=== PATIENT | male | born 1940 | race Caucasian/White ===

== ENCOUNTER → 2016-04-21 | Outpatient (CLI) | payer OTHER ==
[~2016-04-21] MED LIST: ACET-1256 PO; CLR10 PO; CYAN100020; IBUP-1050 PO; MENT1GEL; MENT4GEL; PHEN10TA31; ZNTT/150 PO
== END | disposition home or self-care (01) ==
LOC: C.LABSPEC 17:34
PROVIDERS: ATTEND Urology
DX: Z85.51 Personal history of malignant neoplasm of bladder (principal); Z12.5 Encounter for screening for malignant neoplasm of prostate

== ENCOUNTER → 2016-05-25 | Outpatient (CLI) | payer OTHER ==
[~2016-05-25] MED LIST changes: -ACET-1256 PO; -CYAN100020
--- NOTE | 2016-05-25 15:25 | DIAGNOSTIC IMAGING REPORT ---
LEFT FOOT MIN 3 VIEWS ROUTINE CLINICAL HISTORY: LEFT FOOT PAIN pain COMPARISON: None. DISCUSSION: Considerable degenerative change throughout all major joint. Includes the interphalangeal, metatarsophalangeal, as well as intercarpal region. Moderate reactive osteophytic change throughout. No evidence for fracture or dislocation. There is small heel spur. There is no evidence for soft tissue swelling. IMPRESSION: Significant degenerative change. Heel spur. No acute bony abnormality. Electronically signed by: Luis Morales M.D. 05/25/2016 3:24 PM Dictated Date/Time: 05/25/2016 3:23 PM
== END | disposition home or self-care (01) ==
LOC: C.RADBC 15:03
PROVIDERS: ATTEND Physician Assistant Medical
DX: M79.672 Pain in left foot (principal); M77.32 Calcaneal spur, left foot

== ENCOUNTER → 2016-06-23 | Outpatient (CLI) | payer OTHER ==
[~2016-06-23] MED LIST changes: +ALBU18002 INH
--- NOTE | 2016-06-23 12:24 | DIAGNOSTIC IMAGING REPORT ---
CHEST 2 VIEWS ROUTINE CLINICAL HISTORY: COUGH COMPARISON STUDY: 11/20/2008 FINDINGS: The cardiac and mediastinal contours are normal. There is no evidence of focal pulmonary consolidation. There is no evidence of failure. No pleural effusions are visualized.[ IMPRESSION: No active disease in the chest. Electronically signed by: Ga Salcido M.D. 06/23/2016 12:22 PM Dictated Date/Time: 06/23/2016 12:21 PM
== END | disposition home or self-care (01) ==
LOC: C.RADPV 11:50
PROVIDERS: ATTEND Nurse Practitioner Family
DX: R05 Cough (principal)

== ENCOUNTER 2020-04-22 16:08 | Inpatient (IN) ==
[2020-04-22] MEDS ORDERED: SODIUM CHLORIDE 0.9% 500 ML IV SCH (17:00)
[2020-04-22 17:40] LABS: Eosinophils # (auto) 0.02 K/uL (0-0.5); Eosinophils % (auto) 0.3 %; Hematocrit (blood only) 23.5 % (42-52); Hemoglobin 7.4 g/dL (14.0-18.0); Immature Granulocytes # (auto) 0.07 K/uL (0.00-0.02); Immature Granulocytes % (auto) 0.9 %; Lymphocytes # (auto) 1.38 K/uL (1.2-3.4); Lymphocytes % (auto) 17.7 %; Mean Corpuscular Hemoglobin 33.3 pg (25-34); Mean Corpuscular Hgb Conc 31.5 g/dL (32-36); Mean Corpuscular Volume 105.9 fL (80-100); Monocytes # (auto) 0.32 K/uL (0.11-0.59); Monocytes % (auto) 4.1 %; Platelet Count 264 K/uL (130-400); RDW Coefficient of Variation 15.5 % (11.5-14.5); RDW Standard Deviation 59.7 fL (36.4-46.3); Red Blood Count 2.22 M/uL (4.7-6.1); Reticulocyte % 2.3 % (0.5-2.0); Reticulocytes # 0.05 10^6/uL (0.02-0.10); White Blood Count 7.79 K/uL (4.8-10.8)
--- NOTE | 2020-04-22 18:02 | XRay Report ---
XR chest 1V portable CLINICAL HISTORY: Atypical chest pain COMPARISON STUDY: 04/17/2020 FINDINGS: The cardiac and mediastinal contours are normal. There is no evidence of focal pulmonary co nsolidation. There is no evidence of failure. No pleural effusions are visualized.[Arthritic changes are present within both shoulders with conventional radiographic findings suggesting chronic rotator cuff tear/degeneration IMPRESSION: No active disease in the chest. ACT 112: Negative or not required by law. Electronically signed by: Ga Salcido M.D. 04/22/2020 6:01 PM
[2020-04-22 18:07] LABS: Alanine Aminotransferase 19 U/L (12-78); Albumin Level 2.8 gm/dl (3.4-5.0); Aspartate Aminotransferase 15 U/L (15-37); BUN Creatinine Ratio 24.3 (10-20); Blood Urea Nitrogen 27 mg/dl (7-18); Calcium 8.6 mg/dl (8.5-10.1); Carbon Dioxide 25 mmol/L (21-32); Chloride 106 mmol/L (98-107); Creatinine Clr Calc Pharmacy 52.9 ml/min; Est GFR (African American) 72.6; Est GFR (Non-African American) 62.6; Glucose 98 mg/dl (70-99); Lipase 132 U/L (73-393); Potassium 3.6 mmol/L (3.5-5.1); Sodium 140 mmol/L (136-145)
[2020-04-22 18:10] LABS: RBC Morphology Unremarkable
[2020-04-22 18:11] LABS: Albumin Globulin Ratio 0.6 (0.9-2); Alkaline Phosphatase 58 U/L (45-117); Bilirubin,Total 0.5 mg/dl (0.2-1); Globulin 4.6 gm/dl (2.5-4.0); Total Protein 7.4 gm/dl (6.4-8.2); Troponin I < 0.015 ng/ml (0-0.045)
--- NOTE | 2020-04-22 18:14 | Emergency Department Note ---
Impression & Plan Near syncope, Anemia, Elevated ferritin ED Provider Note NAME: DILIP MUELLER AGE: 79 SEX: M ARRIVES VIA: Walk-In INFORMANT: Patient, ED PROVIDER(S): Fabiano Mcduffie MD CHIEF COMPLAINT: Anemia, near syncope. PLAN: Disposition: Admit. MEDICAL DECISION MAKING: The patient is a pleasant 79-year-old gentleman with a past medical history of hypertension, acid reflux, history of macrocytic anemia of unclear etiology, osteopenia/arthritis who presents emergency department from PCPs office for evaluation of worsening anemia where he was noted to have a H/H of 8.2/27 on 04/17 which declined to 7.7/25.5 today in the setting of having previous baseline of on prior values in 2019 though no recent values are immediately available. The patient was referred in the setting of having symptoms of frequent dizziness/near syncope when standing. Patient denies any bloody or black stools. He denies any signs or symptoms of bleeding otherwise. The patient did have outpatient iron studies which demonstrated low iron and TIBC, with an elevated ferritin of 1400. Patient's MCV again is macrocytic. The patient does report having a recent sensation that he is needing to urinate frequently but denies burning or sensation of unable to void or urinary retention. Of note, review of the patient's records does show he follows with hematology and had been previously evaluated for his anemia with a suspicion of possible myelodysplastic syndrome though blood work was negative, however MDS was still considered a possibility but bone marrow biopsy was deferred given no symptoms and only mild anemia. On arrival the patient is fatigued appearing but no acute distress, afebrile stable vital signs. Abdomen is benign. Rectal exam is unremarkable with scant brown stool without gross blood or melena and is Hemoccult negative. WBC and platelets within normal limits. H/H 7.4/23.5 slightly decreased from this morning of 7.7/25.5 but in the setting of repeat phlebotomy. MVC is again macrocytic at 105. Chemistry without metabolic acidosis. LFTs unremarkable. LDH within normal limits. Troponin negative/undetectable. Lipase within normal limits. ESR and CRP elevated at 31 and 15, respectively. Reticulocyte 2.3% only mildly elevated, which given worsening macrocytic anemia could suggest etiology of MDS. COVID-19 RNA, NAAT negative. CT of the abdomen and pelvis negative for acute process. Given the patient's new anemia of unclear chronicity in the setting of near syncopal symptoms reasonable to admit the patient for further evaluation and possible transfusion. Patient agrees with this plan. Will defer decision for transfusion to admitting team as patient is stable at this time. Dr. Pantoja, [facility] hospitalist, to will evaluate the patient for admission. Triage Nursing notes reviewed and agree them. Prior medical records reviewed Vital Signs: reviewed and remarkable for no significant abnormalities Differential diagnosis: Infection, dehydration, metabolic abnormality, hypo/hyperglycemia, electrolyte disturbance, anemia, hypoxia, cardiac sources, intracerebral event, toxicologic, neurologic, as well as other pathologies. ER treatment provided: See below. Diagnostics interpreted by me: ECG: Sinus rhythm with PACs, 86 bpm, no overt ST elevation depression, QTC 452, QRS 94. Cardiac Monitoring: An order for continuous cardiac monitoring was placed and demonstrated Sinus rhythm with PACs, 86 bpm. Laboratory studies: See below Imaging studies: XR chest 1V portable CLINICAL HISTORY: Atypical chest pain COMPARISON STUDY: 04/17/2020 FINDINGS: The cardiac and mediastinal contours are normal. There is no evidence of focal pulmonary consolidation. There is no evidence of failure. No pleural effusions are visualized.[Arthritic changes are present within both shoulders with conventional radiographic findings suggesting chronic rotator cuff tear/degeneration IMPRESSION: No active disease in the chest. ACT 112: Negative or not required by law. Electronically signed by: Ga Salcido M.D. -- CT abd pelvis IV con only CLINICAL HISTORY: Abdominal pain and near-syncope COMPARISON STUDY: None. TECHNIQUE: The patient was scanned in a dynamic helical fashion during intravenous administration of 92 cc of Optiray 320 A dose lowering technique was utilized adhering to the principles of ALARA. CT DOSE: 299.37 mGy.cm FINDINGS: Lower chest: There is pulmonary emphysema. There are dependent airspace opacities, likely atelectatic Liver: There are scattered tiny hepatic hypodensities which are too small to characterize but statistically represent cysts. Gallbladder: Unremarkable. Spleen: Normal in size and attenuation. Pancreas: Unremarkable. Adrenal glands: There is a 16mm left adrenal adenoma. Kidneys: There are multiple bilateral renal cysts, the largest of which is located on the right measuring 87 mm. No solid renal masses are visualized. There is mild fullness of the left renal collecting system. No ureteral or bladder calculi are visualized. Evaluation the distal ureters limited due to artifact from a total left hip arthroplasty. Bowel: There are no transition zones indicate bowel obstruction. The appendix appears normal. There is colonic diverticulosis. There is no acute diverticulitis Peritoneum: There is no intraperitoneal free air or abdominal ascites. There is a small right inguinal hernia containing a small not all of small bowel. This is nonobstructing Vasculature: The abdominal aorta is normal in course and caliber. Adenopathy: None. Pelvic viscera: The prostate is enlarged. Evaluation the pelvis is somewhat limited due to artifact from a total left hip arthroplasty Skeletal structures: There are postsurgical changes of a total left hip arthroplasty. Degenerative changes are present within the spine and right hip. No destructive lesions are evident IMPRESSION: 1. No evidence of bowel obstruction. No evidence of free air 2. Diverticulosis. No evidence of acute diverticulitis 3. Normal appendix 4. Small left adrenal adenoma 5. Large bilateral renal cysts. 6. Mild dilatation left renal collecting system. No ureteral or bladder calculi identified 7. Prostatomegaly ACT 112: Negative or not required by law. Electronically signed by: Ga Salcido M.D. 04/22/2020 6:45 PM Dictated: 04/22/20 183Transcribed: 04/22/20 184 HPI: The patient is a pleasant 79-year-old gentleman with a past medical history of hypertension, acid reflux, history of macrocytic anemia of unclear etiology, osteopenia/arthritis who presents emergency department from PCPs office for evaluation of worsening anemia where he was noted to have a H/H of 8.2/27 on 04/17 which declined to 7.7/25.5 today in the setting of having previous baseline of on prior values in 2019 though no recent values are immediately available. The patient was referred in the setting of having symptoms of frequent dizziness/near syncope when standing. Patient denies any bloody or black stools. He denies any signs or symptoms of bleeding otherwise. The pat ient did have outpatient iron studies which demonstrated low iron and TIBC, with an elevated ferritin of 1400. Patient's MCV again is macrocytic. The patient does report having a recent sensation that he is needing to urinate frequently but denies burning or sensation of unable to void or urinary retention. Of note, review of the patient's records does show he follows with hematology and had been previously evaluated for his anemia with a suspicion of possible myelodysplastic syndrome though blood work was negative, however MDS was still considered a possibility but bone marrow biopsy was deferred given no symptoms and only mild anemia. ROS: See above HPI for pertinent positives & negatives. A total of 10 systems reviewed and were otherwise negative. PAST MEDICAL HISTORY:See Below PAST SURGICAL HISTORY:See Below FAMILY HISTORY:See Below SOCIAL HISTORY:See Below HOME MEDICATIONS:See Below ALLERGIES:See Below VITALS:See Below PHYSICAL EXAMINATION: GENERAL: Awake, alert, fatigued-appearing, in no distress HENT: Normocephalic, atraumatic. Oropharynx with dry mucous membranes and otherwise unremarkable. EYES: Normal conjunctiva. Sclera non-icteric. NECK: Supple. No nuchal rigidity. FROM. No JVD. RESPIRATORY: Clear to auscultation. CARDIAC: Regular rate, normal rhythm. Extremities warm and well perfused. Pulses equal. ABDOMEN: Soft, non-distended. No tenderness to palpation. No rebound or guarding. No masses. RECTAL: Scant brown stool without gross blood, melena. Hemoccult negative. MUSCULOSKELETAL: Chest examination reveals no tenderness. The back is symmetrical on inspection without obvious abnormality. There is no CVA tenderness to palpation. No joint edema. LOWER EXTREMITIES: Calves are equal size bilaterally and non-tender. No edema. No discoloration. NEURO: Normal sensorium. No sensory or motor deficits noted. SKIN: Mild pallor. No rash or jaundice noted. Fabiano Mcduffie MD Past Med/Surg History Medical History Acid reflux disease Allergic rhinitis Hypertension Pulmonary nodule Surgical History S/P bladder tumor excision with fulguration 8 "cured" surgically per patient. 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 Medical Writer Required: No Beliefs That Will Affect Care: None marital status: Current Living Situation: Spouse current occupational status: retired Other Information That Helps Us Care for You: No Feels Safe at Home: Yes Safety Concerns: Feels Safe At This Time Childhood Exposure to Second-Hand Smoke: No caffeine: Yes Dental Care, Regularly: No Physical Activity Frequency: Daily Seatbelt Use: always Sunscreen Use: Yes Assistive Devices: Denture - Upper, Denture - Lower, Glasses and Hearing Aid - Bilateral Allergies Allergies Allergy/AdvReac Type Severity Reaction Status Date / Time No Known Allergies Allergy Verified 04/22/20 13:57 Home Meds Home Medications Medication Instructions Recorded Confirmed famotidine 10 mg tablet 10 mg PO DAILY PRN 10/08/19 04/22/20 amlodipine 5 mg PO DAILY 04/22/20 04/22/20 fluticasone furoate-vilanterol 1 inh INHALATION DAILY PRN 04/22/20 04/22/20 [Breo Ellipta] ibuprofen 200 mg tablet 200 mg PO DIRECTED PRN tab 04/22/20 04/22/20 Results & Data (ED) Vital Signs Vital Signs - 24 hr 04/22/20 16:11 04/22/20 16:21 04/22/20 16:23 Temperature 37 C Temperature Source Oral Pulse Rate 93 H 83 90 Pulse Rate from SpO2 Sensor 88 Respiratory Rate 18 20 16 Blood Pressure 173/64 H 140/70 Blood Pressure Mean 100 93 Pulse Oximetry 99 99 95 Oxygen Delivery Method Room Air Room Air Sepsis Recent Fever Within 48 Hours No Sepsis New/Unexplained Change in Mental Status No Sepsis Action Taken by Nursing No Action Required 04/22/20 16:25 04/22/20 16:30 04/22/20 16:31 Temperature Temperature Source Pulse Rate 86 84 83 Pulse Rate from SpO2 Sensor 86 84 81 Respiratory Rate 19 25 H 19 Blood Pressure 134/70 Blood Pressure Mean 91 Pulse Oximetry 99 100 98 Oxygen Delivery Method Sepsis Recent Fever Within 48 Hours Sepsis New/Unexplained Change in Mental Status Sepsis Action Taken by Nursing 04/22/20 17:00 04/22/20 17:01 04/22/20 17:11 Temperature Temperature Source Pulse Rate 82 84 84 Pulse Rate from SpO2 Sensor 82 83 83 Respiratory Rate 17 20 17 Blood Pressure 128/65 125/64 Blood Pressure Mean 86 84 Pulse Oximetry 97 98 96 Oxygen Delivery Method Sepsis Recent Fever Within 48 Hours Sepsis New/Unexplained Change in Mental Status Sepsis Action Taken by Nursing 04/22/20 19:00 04/22/20 19:01 04/22/20 19:30 Temperature Temperature Source Pulse Rate 82 83 87 Pulse Rate from SpO2 Sensor 81 82 Respiratory Rate 14 16 15 Blood Pressure 137/69 159/76 H Blood Pressure Mean 91 103 Pulse Oximetry 97 97 Oxygen Delivery Method Room Air Room Air Sepsis Recent Fever Within 48 Hours Sepsis New/Unexplained Change in Mental Status Sepsis Action Taken by Nursing 04/22/20 20:00 04/22/20 21:00 Temperature Temperature Source Pulse Rate 88 79 Pulse Rate from SpO2 Sensor Respiratory Rate 19 20 Blood Pressure 143/72 H Blood Pressure Mean 95 Pulse Oximetry 98 98 Oxygen Delivery Method Room Air Room Air Sepsis Recent Fever Within 48 Hours Sepsis New/Unexplained Change in Mental Status Sepsis Action Taken by Nursing Laboratory Data Attestation: I reviewed the patient's lab results. Result diagrams: 04/22/20 17:30 04/22/20 17:03 Lab Results 04/22/20 04/22/20 04/22/20 Range/Units 17:03 17:03 17:03 WBC (4.8-10.8) K/uL RBC (4.7-6.1) M/uL Hgb (14.0-18.0) g/dL Hct (42-52) % MCV (80-100) fL MCH (25-34) pg MCHC (32-36) g/dL RDW Std Deviation (36.4-46.3) fL RDW Coeff of [place] (11.5-14.5) % Plt Count (130-400) K/uL MPV (7.4-10.4) fL Immature Gran % (Auto) % Neut % (Auto) % Lymph % (Auto) % Bryan % (Auto) % Eos % (Auto) % Baso % (Auto) % Reticulocyte % (Auto) (0.5-2.0) % Neut # (Auto) (1.4-6.5) K/uL Lymph # (Auto) (1.2-3.4) K/uL Bryan # (Auto) (0.11-0.59) K/uL Eos # (Auto) (0-0.5) K/uL Baso # (Auto) (0-0.2) K/uL Reticulocyte # (0.02-0.10) 10^6/uL Immature Gran # (Auto) (0.00-0.02) K/uL RBC Morphology ESR 31 H (0-14) mm/hr Sodium (136-145) mmol/L Potassium (3.5-5.1) mmol/L Chloride (98-107) mmol/L Carbon Dioxide (21-32) mmol/L Anion Gap (3-11) BUN (7-18) mg/dl Creatinine (0.6-1.4) mg/dl Est Cr Clr Drug Dosing ml/min Est GFR ( Amer) Est GFR (Non-Af Amer) BUN/Creatinine Ratio (10-20) Glucose (70-99) mg/dl Calcium (8.5-10.1) mg/dl Total Bilirubin (0.2-1) mg/dl AST (15-37) U/L ALT (12-78) U/L Alkaline Phosphatase (45-117) U/L Lactate Dehydrogenase 173 (87-241) U/L Troponin I (0-0.045) ng/ml C-Reactive Protein (0-0.29) mg/dl Total Protein (6.4-8.2) gm/dl Albumin (3.4-5.0) gm/dl Globulin (2.5-4.0) gm/dl Albumin/Globulin Ratio (0.9-2) Lipase (73-393) U/L Urine Color Urine Appearance (Clear) Urine pH (4.5-7.5) Ur Specific [place] (1.000-1.030) Urine Protein (Negative) Urine Glucose (UA) (Negative) Urine Ketones (Negative) Urine Blood (Negative) Urine Nitrite (Negative) Urine Bilirubin (Negative) Urine Urobilinogen (Negative) Ur Leukocyte Esterase (Negative) COVID-19 Eval Order SARS-CoV-2, RNA, NAAT (NEGATIVE) Blood Type O Positive Antibody Screen NEGATIVE Crossmatch See Detail 04/22/20 04/22/20 04/22/20 Range/Units 17:03 17:30 17:30 WBC 7.79 (4.8-10.8) K/uL RBC 2.22 L (4.7-6.1) M/uL Hgb 7.4 L (14.0-18.0) g/dL Hct 23.5 L (42-52) % MCV 105.9 H (80-100) fL MCH 33.3 (25-34) pg MCHC 31.5 L (32-36) g/dL RDW Std Deviation 59.7 H (36.4-46.3) fL RDW Coeff of [place] 15.5 H (11.5-14.5) % Plt Count 264 (130-400) K/uL MPV 9.0 (7.4-10.4) fL Immature Gran % (Auto) 0.9 % Neut % (Auto) 77.0 % Lymph % (Auto) 17.7 % Bryan % (Auto) 4.1 % Eos % (Auto) 0.3 % Baso % (Auto) 0.0 % Reticulocyte % (Auto) 2.3 H (0.5-2.0) % Neut # (Auto) 6.00 (1.4-6.5) K/uL Lymph # (Auto) 1.38 (1.2-3.4) K/uL Bryan # (Auto) 0.32 (0.11-0.59) K/uL Eos # (Auto) 0.02 (0-0.5) K/uL Baso # (Auto) 0.00 (0-0.2) K/uL Reticulocyte # 0.05 (0.02-0.10) 10^6/uL Immature Gran # (Auto) 0.07 H (0.00-0.02) K/uL RBC Morphology Unremarkable ESR (0-14) mm/hr Sodium 140 (136-145) mmol/L Potassium 3.6 (3.5-5.1) mmol/L Chloride 106 (98-107) mmol/L Carbon Dioxide 25 (21-32) mmol/L Anion Gap 9.0 (3-11) BUN 27 H (7-18) mg/dl Creatinine 1.10 (0.6-1.4) mg/dl Est Cr Clr Drug Dosing 52.9 ml/min Est GFR ( Amer) 72.6 Est GFR (Non-Af Amer) 62.6 BUN/Creatinine Ratio 24.3 H (10-20) Glucose 98 (70-99) mg/dl Calcium 8.6 (8.5-10.1) mg/dl Total Bilirubin 0.5 (0.2-1) mg/dl AST 15 (15-37) U/L ALT 19 (12-78) U/L Alkaline Phosphatase 58 (45-117) U/L Lactate Dehydrogenase (87-241) U/L Troponin I < 0.015 (0-0.045) ng/ml C-Reactive Protein 15.70 H (0-0.29) mg/dl Total Protein 7.4 (6.4-8.2) gm/dl Albumin 2.8 L (3.4-5.0) gm/dl Globulin 4.6 H (2.5-4.0) gm/dl Albumin/Globulin Ratio 0.6 L (0.9-2) Lipase 132 (73-393) U/L Urine Color Urine Appearance (Clear) Urine pH (4.5-7.5) Ur Specific [place] (1.000-1.030) Urine Protein (Negative) Urine Glucose (UA) (Negative) Urine Ketones (Negative) Urine Blood (Negative) Urine Nitrite (Negative) Urine Bilirubin (Negative) Urine Urobilinogen (Negative) Ur Leukocyte Esterase (Negative) COVID-19 Eval Order Covid19 IDNow [email or web address] SARS-CoV-2, RNA, NAAT (NEGATIVE) Blood Type Antibody Screen Crossmatch 04/22/20 04/22/20 Range/Units 17:30 19:28 WBC (4.8-10.8) K/uL RBC (4.7-6.1) M/uL Hgb (14.0-18.0) g/dL Hct (42-52) % MCV (80-100) fL MCH (25-34) pg MCHC (32-36) g/dL RDW Std Deviation (36.4-46.3) fL RDW Coeff of [place] (11.5-14.5) % Plt Count (130-400) K/uL MPV (7.4-10.4) fL Immature Gran % (Auto) % Neut % (Auto) % Lymph % (Auto) % Bryan % (Auto) % Eos % (Auto) % Baso % (Auto) % Reticulocyte % (Auto) (0.5-2.0) % Neut # (Auto) (1.4-6.5) K/uL Lymph # (Auto) (1.2-3.4) K/uL Bryan # (Auto) (0.11-0.59) K/uL Eos # (Auto) (0-0.5) K/uL Baso # (Auto) (0-0.2) K/uL Reticulocyte # (0.02-0.10) 10^6/uL Immature Gran # (Auto) (0.00-0.02) K/uL RBC Morphology ESR (0-14) mm/hr Sodium (136-145) mmol/L Potassium (3.5-5.1) mmol/L Chloride (98-107) mmol/L Carbon Dioxide (21-32) mmol/L Anion Gap (3-11) BUN (7-18) mg/dl Creatinine (0.6-1.4) mg/dl Est Cr Clr Drug Dosing ml/min Est GFR ( Amer) Est GFR (Non-Af Amer) BUN/Creatinine Ratio (10-20) Glucose (70-99) mg/dl Calcium (8.5-10.1) mg/dl Total Bilirubin (0.2-1) mg/dl AST (15-37) U/L ALT (12-78) U/L Alkaline Phosphatase (45-117) U/L Lactate Dehydrogenase (87-241) U/L Troponin I (0-0.045) ng/ml C-Reactive Protein (0-0.29) mg/dl Total Protein (6.4-8.2) gm/dl Albumin (3.4-5.0) gm/dl Globulin (2.5-4.0) gm/dl Albumin/Globulin Ratio (0.9-2) Lipase (73-393) U/L Urine Color Yellow Urine Appearance Clear (Clear) Urine pH 5.5 (4.5-7.5) Ur Specific [place] 1.034 H (1.000-1.030) Urine Protein Negative (Negative) Urine Glucose (UA) Negative (Negative) Urine Ketones Trace H (Negative) Urine Blood Negative (Negative) Urine Nitrite Negative (Negative) Urine Bilirubin Negative (Negative) Urine Urobilinogen Negative (Negative) Ur Leukocyte Esterase Negative (Negative) COVID-19 Eval Order SARS-CoV-2, RNA, NAAT NEGATIVE (NEGATIVE) Blood Type Antibody Screen Crossmatch Administered Medications Discontinued Medications Sodium Chloride (Nss) 500 mls @ 999 mls/hr IV .Q31M [place] Stop: 04/22/20 17:30 Last Infusion: 04/22/20 18:19 Dose: 0 mls/hr Documented by: [id number] Admin: 04/22/20 17:19 Dose: 999 mls/hr Documented by: [id number] Ioversol (Ioversol 100ml) 92 ml IV ONCE ONE Stop: 04/22/20 18:34 Last Admin: 04/22/20 18:34 Dose: 92 ml Documented by: [id number] Discharge Plan Visit Data Chief Complaint: Illness Stated Complaint: dr sent for blood transfusion, lightheaded ED Provider: Fabiano Mcduffie Discharge Problem: Near syncope, Anemia, Elevated ferritin Patient Disposition: Admitted As Inpatient Discharge Instructions Interventions: ED Discharge Assessment Last Done: 04/22/20 21:56 Discharge Problem: Anemia Qualifiers: Anemia type: unspecified type Qualified Code(s): D64.9 - Anemia, unspecified
[2020-04-22] MEDS ORDERED: OPTIRAY 320 100ml IV ONE (18:33)
--- NOTE | 2020-04-22 18:46 | CT Scan Report ---
CT abd pelvis IV con only CLINICAL HISTORY: Abdominal pain and near-syncope COMPARISON STUDY: None. TECHNIQUE: The patient was scanned in a dynamic helical fashion during intravenous administration of 92 cc of Optiray 320 A dose lowering technique was utilized adhering to the principles of ALARA. CT DOSE: 299.37 mGy.cm FINDINGS: Lower chest: There is pulmonary emphysema. There are dependent airspace opacities, likely atelectatic Liver: There are scattered tiny hepatic hypodensities which are too small to characterize but statist ically represent cysts. Gallbladder: Unremarkable. Spleen: Normal in size and attenuation. Pancreas: Unremarkable. Adrenal glands: There is a 16mm left adrenal adenoma. Kidneys: There are multiple bilateral renal cysts, the largest of which is located on the right measu ring 87 mm. No solid renal masses are visualized. There is mild fullness of the left renal collecting system. No ureteral or bladder calculi are visualized. Evaluation the distal ureters limited due to artifact from a total left hip arthroplasty. Bowel: There are no transition zones indicate bowel obstruction. The appendix appears normal. There i s colonic diverticulosis. There is no acute diverticulitis Peritoneum: There is no intraperitoneal free air or abdominal ascites. There is a small right inguina l hernia containing a small not all of small bowel. This is nonobstructing Vasculature: The abdominal aorta is normal in course and caliber. Adenopathy: None. Pelvic viscera: The prostate is enlarged. Evaluation the pelvis is somewhat limited due to artifact f rom a total left hip arthroplasty Skeletal structures: There are postsurgical changes of a total left hip arthroplasty. Degenerative ch anges are present within the spine and right hip. No destructive lesions are evident IMPRESSION: 1. No evidence of bowel obstruction. No evidence of free air 2. Diverticulosis. No evidence of acute diverticulitis 3. Normal appendix 4. Small left adrenal adenoma 5. Large bilateral renal cysts. 6. Mild dilatation left renal collecting system. No ureteral or bladder calculi identified 7. Prostatomegaly ACT 112: Negative or not required by law. Electronically signed by: Ga Salcido M.D. 04/22/2020 6:45 PM
[2020-04-22 19:35] LABS: Appearance Urine Clear (Clear); Bilirubin Urine Negative (Negative); Blood Urine Negative (Negative); Color Urine Yellow; Glucose Urine UA Negative (Negative); Ketones Urine Trace (Negative); Leukocyte Esterase Urine Negative (Negative); Nitrite Urine Negative (Negative); Protein Urine Negative (Negative); Specific Gravity Urine 1.034 (1.000-1.030); Urobilinogen Urine Negative (Negative); pH Urine 5.5 (4.5-7.5)
--- NOTE | 2020-04-22 21:45 | History & Physical Report ---
Date of Service April 22, 2020 Assessment & Plan Admission and Anticipated Discharge Date Admission Date: 79 yo M w/ pMHx. of bladder cancer, hip replacement, biceps tear, OA and RA presents with symptomatic anemia unclear etiology. Chronically worsened symptomatic macrocytic anemia, with elevated RDW and ferritin > 1400 in the setting of NSAID use concern for gastric ulcers. Previous worked up by hematology w/ Dr. Houston. for dyscrasia although differential also includes B12 or folate deficiency, anemia of chronic disease, UA w/o blood, currently patient is stable CT a/p with findings of diverticulosis, mild dilation of the left renal collecting system CXR with no active disease - admit to med/surg - Hgb 7.7, will continue to monitor with AM labs - routine hematology consult w/ Dr. Houston - ordered LDH, TSH, b12, folate, SPEP - waiting peripheral smear, haptoglobin - 1U pRBC ordered - routine GI consult for potential GI source of blood loss - NPO at midnight for potential scope/s Acute weight loss, in the setting of prior bladder cancer, with smoking history and family history of cancer and no colon cancer screening in the past 30 years concerning for possible bladder, lung or colon cancer low albumin - GI consult as above, could consider outpatient scope for screening if not done in-house - continue to follow pulmonary nodule with imaging - ensure f/u with urology to monitor bladder cancer for recurrence potentially on an outpatient basis - continue evaluation of weight loss in the outpatient setting HTN - continue home Amlodipine Discharge issues given presyncope and weight loss - PT/OT eval and treat - case mgmt consulted for discharge planning DVT prophylaxis: SCD's given symptomatic anemia of unclear source will hold off on chemical prophylaxis at this time Code: DNR/DNI Diet: NPO at midnight COVID: negative 04/22 History of Present Illness Chief Complaint: presyncope Primary Care Provider: DO Bert Mederos Maximiliano is a 79-year-old man who has a past medical history of bladder cancer, arthritis, biceps tear, and left hip replacement. He is coming in for symptomatic anemia. He has been having spells where he is doing something and will feel weak and have to, "shake it off". He said that he will have to sit down or he is concerned that he will fall and has some associated shortness of breath. He was seen by his primary doctor one week prior and his hgb was 8.2 and when he saw him today it was 7.7 and he was sent to the ER for symptomatic an emia. He has not had any blood in his bowel movements. His last colonoscopy was over 30 years ago and polyps were removed and he had a complication where according to patient a "repair" was required. He has pink urine which has been chronic for him without any changes recently, edenilson blood, or clots. He was previously seen for macrocytic anemia and leukopenia by Hematology Oncology on 12/24/18. Not found to have plasma cell dyscrasia with SPEP at that time but a biopsy for diagnosis was deferred as he was not symptomatic. He has lost 10 lbs. over the last 1.5 months. He has not had any changes in his diet or exercise level. He eats eggs for breakfast, sandwiches for lunch and soups. He does not eat much red meat and doesn't use cast iron for cooking. He has a past history of bladder cancer. He smoked 20 pack years and quit 50 years ago. Family history is significant for stomach cancer, prostate cancer and breast and ovarian cancer. He has been taking ibuprofen 1 pill approx. every 10 hours for the last few days. He takes Famotidine as needed but has not taken it in the last few days. Social: lives at home with who has colon cancer and requires care, daughter Kimberly was with him and visits with parents daily, drinks beer socially, infrequently with none in the last week. Allergies Allergy/AdvReac Type Severity Reaction Status Date / Time No Known Allergies Allergy Verified 04/22/20 13:57 Home Medications Medication Instructions Recorded Confirmed Type famotidine 10 mg tablet 10 mg PO DAILY PRN 10/08/19 04/22/20 History amlodipine 5 mg PO DAILY 04/22/20 04/22/20 History fluticasone furoate-vilanterol 1 inh INHALATION DAILY PRN 04/22/20 04/22/20 History [Breo Ellipta] ibuprofen 200 mg tablet 200 mg PO DIRECTED PRN tab 04/22/20 04/22/20 History Past Med/Surg History Medical History Acid reflux disease Allergic rhinitis Hypertension Pulmonary nodule Surgical History S/P bladder tumor excision with fulguration 2008. 10-08-19 "cured" surgically per patient. S/P hip replacement S/P tooth extraction Family History Denies family history of Ovarian cancer Prostate cancer Myocardial infarction Breast cancer Colorectal cancer Social History Smoking Status: Former smoker Number of Years Since Quit: 40; Hx Alcohol Use: No Hx Substance Use: No Preferred Language: Pashto Communication Ability: Effective Visual Impairment: No Limitations Hearing Ability: Use of Hearing Aid Cone Picker Required: No Beliefs That Will Affect Care: None marital status: Current Living Situation: Spouse current occupational status: retired Other Information That Helps Us Care for You: No Feels Safe at Home: Yes Safety Concerns: Feels Safe At This Time Childhood Exposure to Second-Hand Smoke: No caffeine: Yes Dental Care, Regularly: No Physical Activity Frequency: Daily Seatbelt Use: always Sunscreen Use: Yes Assistive Devices: Denture - Upper, Denture - Lower, Glasses and Hearing Aid - Bilateral Review of Systems Review of Systems: Constitutional: denies fevers, chills admits generalized weakness, night sweats that happen when he takes Tylenol and Advil Head: denies trauma, LOC admits headaches confusion and chronic vision changes he relates to cataract Neuro: denies syncope, slurring of speech, numbness, tingling admits neck pain ENT: Denies vertigo admits stuffiness and sneezing Cardiac: admits chronic leg edema Pulm: admits cough with clear sputum production GI: denies diarrhea, constipation changes in bowel freq, color, blood : admits chronic pain with urination that is unchanged from prior Physical Exam Constitutional: WD/WN, vitals as above + thin Eyes: PERRL, conjunctivae normal, anicteric sclerae ENMT: external ear and nose normal, oropharynx normal Neck: normal visual inspection Respiratory: normal respiratory effort, lungs clear to auscultation Cardiovascular: RRR, no murmur, no edema Chest (Breasts): Additional Comments: - left lower chest pain on palpation Gastrointestinal (Abdomen): - soft, slightly tender to palpation of the right lower quadrant Musculoskeletal: no cyanosis or clubbing, extremities motor strength 5/5 1+ non pitting edema of the lower extremity bilaterally Skin: no rashes, warm and dry Neurologic: CN's II-XI intact bilaterally Speech / Cognition: normal speech Results & Data Results & Data ([facility]) Vital Signs (Past 12 Hours) Vital Signs Temp Pulse Resp BP Pulse Ox 04/22/20 21:00 79 20 98 04/22/20 20:00 88 19 143/72 H 98 04/22/20 19:30 87 15 159/76 H 04/22/20 19:01 83 16 97 04/22/20 19:00 82 14 137/69 97 04/22/20 17:11 84 17 125/64 96 04/22/20 17:01 84 20 98 04/22/20 17:00 82 17 128/65 97 04/22/20 16:31 83 19 98 04/22/20 16:30 84 25 H 134/70 100 04/22/20 16:25 86 19 99 04/22/20 16:23 90 16 140/70 95 04/22/20 16:21 83 20 99 04/22/20 16:11 37 C 93 H 18 173/64 H 99 CBC Results Results Complete Blood Count Results: RBC 2.67 M/uL (4.7-6.1) L 04/23/20 WBC 7.71 K/uL (4.8-10.8) 04/23/20 Hgb 8.7 g/dL (14.0-18.0) L 04/23/20 Hct 27.0 % (42-52) L 04/23/20 Plt Count 215 K/uL (130-400) 04/23/20 Chemistry (BMP) Results BMP Results: Sodium 138 mmol/L (136-145) 04/23/20 Potassium 3.6 mmol/L (3.5-5.1) 04/23/20 Chloride 106 mmol/L (98-107) 04/23/20 BUN 20 mg/dl (7-18) H 04/23/20 Creatinine 0.90 mg/dl (0.6-1.4) 04/23/20 Glucose 104 mg/dl (70-99) H 04/23/20 Code Status & VTE Plan VTE Prophylaxis Plan VTE Prophylaxis will be ordered: Yes Supervising Physician Co-Signing Physician Notes Attending addendum: I have physically seen this patient, have supervised the medical residents activities, and agree with the H&P unless as otherwise noted. Assessment and Plan: Symptomatic anemia- Hemoglobin 7.4 upon admission, was 8.2 on 04/17/2020, and 11.4 on 12/24/2018. NPO except medications We will transfuse 2 units PRBCs due to symptoms of near syncope Famotidine 20 mg IV every 12 hours NSS + KCl 20 mEq 100 mils per hour Would not resume ibuprofen post discharge unless okayed by gastroenterology H&H every 6 hours Consult gastroenterology Hypertension- Amlodipine with hold parameters Deconditioning- Will likely need PT/OT consults after hemoglobin is improved Remainder of orders and notations as noted Resident Activity Tracking Resident Involvement: Resident Care Provided Care Provided: Adult Hospital Medicine
[2020-04-22] MEDS ORDERED: SODIUM CHLORIDE 0.9% 250 ML IV PRN (22:39)
[2020-04-22] MEDS ORDERED: FAMOTIDINE 10 MG TABLET PO PRN (22:39)
[2020-04-22] MEDS ORDERED: FLUTICASONE/VILANTEROL 100/25MCG 14 PUFFS/INHALER INH PRN (22:39)
[2020-04-22] MEDS ORDERED: ACETAMINOPHEN 325 MG TAB PO PRN (22:39)
[2020-04-22] MEDS ORDERED: POLYETHYLENE (MIRALAX) 17 GM PACK PO PRN (22:39)
[2020-04-22] MEDS ORDERED: ALUMINUM/MAGNESIUM SUSP 30 ML UDC PO PRN (22:39)
[2020-04-23 06:03] LABS: Hemoglobin 8.7 g/dL (14.0-18.0); Mean Corpuscular Hemoglobin 32.6 pg (25-34); Mean Corpuscular Hgb Conc 32.2 g/dL (32-36); Mean Corpuscular Volume 101.1 fL (80-100); Mean Platelet Volume 8.7 fL (7.4-10.4); Platelet Count 215 K/uL (130-400); RDW Coefficient of Variation 16.5 % (11.5-14.5); RDW Standard Deviation 60.4 fL (36.4-46.3); Red Blood Count 2.67 M/uL (4.7-6.1); White Blood Count 7.71 K/uL (4.8-10.8)
[2020-04-23 06:29] LABS: Eosinophils # (auto) 0.01 K/uL (0-0.5); Eosinophils % (auto) 0.1 %; Immature Granulocytes # (auto) 0.07 K/uL (0.00-0.02); Immature Granulocytes % (auto) 0.9 %; Lymphocytes # (auto) 1.31 K/uL (1.2-3.4); Monocytes # (auto) 0.86 K/uL (0.11-0.59); Monocytes % (auto) 11.2 %; Neutrophils # (auto) 5.46 K/uL (1.4-6.5); Neutrophils % (auto) 70.8 %
[2020-04-23 06:32] LABS: BUN Creatinine Ratio 22.1 (10-20); Calcium 8.1 mg/dl (8.5-10.1); Creatinine Clr Calc Pharmacy 63.7 ml/min; Est GFR (African American) 92.5; Est GFR (Non-African American) 79.8; Potassium 3.6 mmol/L (3.5-5.1)
[2020-04-23 06:42] LABS: Thyroid Stimulating Hormone 0.928 uIu/ml (0.300-4.500)
[2020-04-23] MEDS ORDERED: SUCRALFATE 1 GM/10 ML UDC PO SCH (07:00)
--- NOTE | 2020-04-23 08:50 | Anesthesiology Consultation ---
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 Laura Sanchez MD Height/Weight Height: 5 ft 10 in Weight: 70 kg Allergies Allergy/AdvReac Type Severity Reaction Status Date / Time No Known Allergies Allergy Verified 04/22/20 13:57 Medications Home Medications Medication Instructions Recorded Confirmed Last Taken famotidine 10 mg tablet 10 mg PO DAILY PRN 10/08/19 04/22/20 Unknown amlodipine 5 mg PO DAILY 04/22/20 04/22/20 Unknown fluticasone furoate-vilanterol 1 inh INHALATION DAILY PRN 04/22/20 04/22/20 Unknown [Breo Ellipta] ibuprofen 200 mg tablet 200 mg PO DIRECTED PRN tab 04/22/20 04/22/20 Unknown Active Medications Generic Name Dose Route Start Last Admin Trade Name Freq PRN Reason Stop Dose Admin Acetaminophen 650 mg 04/22/20 22:39 04/23/20 03:52 Acetaminophen 325 Mg Tab PO 05/22/20 22:38 650 mg Q4H PRN Administration pain/fever NPO Date Last Intake of Fluids: 04/22/20 Time Last Intake of Fluids: 23:59 Date Last Intake of Solids: 04/22/20 Time Last Intake of Solids: 23:59 Past Medical History Medical History Acid reflux disease Allergic rhinitis Hypertension Pulmonary nodule Past Family History Family History Denies family history of Ovarian cancer Prostate cancer Myocardial infarction Breast cancer Colorectal cancer Past Surgical History Surgical History S/P bladder tumor excision with fulguration 2008. 8-- "cured" surgically per patient. S/P hip replacement S/P tooth extraction Social History Smoking Status: Former smoker Hx Alcohol Use: No Hx Substance Use: No Physical Exam Vital Signs Last Vital Signs Temp 98.2 F 04/23/20 08:06 Pulse 68 04/23/20 08:06 Resp 16 04/23/20 08:06 BP 131/67 04/23/20 08:06 Pulse Ox 98 04/23/20 08:06 Testing Laboratory Results 04/23/20 05:23 04/23/20 05:23 Urine Color Yellow 04/22/20 19:28 Urine Appearance Clear (Clear) 04/22/20 19:28 Urine pH 5.5 (4.5-7.5) 04/22/20 19:28 Ur Specific [place] 1.034 (1.000-1.030) H 04/22/20 19:28 Urine Protein Negative (Negative) 04/22/20 19:28 Urine Glucose (UA) Negative (Negative) 04/22/20 19:28 Urine Ketones Trace (Negative) H 04/22/20 19:28 Urine Nitrite Negative (Negative) 04/22/20 19:28 Ur Leukocyte Esterase Negative (Negative) 04/22/20 19:28 Blood Type O Positive 04/22/20 17:03 Antibody Screen NEGATIVE 04/22/20 17:03 Laboratory Tests 04/22/20 17:30 SARS-CoV-2, RNA, NAAT NEGATIVE Electrocardiogram Date: 04/22/20 Sinus rhythm with Premature atrial complexes, rate 86 bpm Otherwise normal ECG When compared with ECG of 11-JAN-2017 10:17, Premature atrial complexes are now Present Chest X-Ray Date: 04/22/20 Findings: + NAD
[2020-04-23] MEDS: MULTIVITAMIN TAB PO SCH (09:22)
[2020-04-23] MEDS: PANTOprazole 40 MG TAB PO SCH (09:22)
[2020-04-23] MEDS: amLODIPine BESYLATE 5 MG TAB PO SCH (09:22)
--- NOTE | 2020-04-23 10:05 | Gastrointestinal Consultation ---
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 1. NPO for now. 2. EGD with Dr. Sanchez today for further evaluation. 3. Continue Pantoprazole 40 mg daily. 4. Continue supportive care. 5. Additional recommendations will be made pending results of testing. Thank you for allowing us to participate in the care of this patient. If you hav e any questions or concerns, please do not hesitate to contact us. Supervising Physician Co-Signing Physician Notes I personally evaluated the patient and agree with the findings as documented by MATEO Stern Exam: abd: soft, nt, nd History of Present Illness Reason for Consultation: Symptomatic anemia Requesting Physician: Dr. Rasmussen Attending Physician: Thomas Gomez History of Present Illness Patient is a very pleasant 79 year-old male with a history of bladder cancer admitted with symptomatic anemia. He states he has been having increased weakness and occasional dizziness upon standing over the past several weeks. He denies any overt GIB symptoms but states he does have abdominal pain of multiple sites after eating intermittently. No nausea or vomiting, diarrhea, constipation or bloating. +weight loss. H&H from 12/22 was noted to be 11.4/34.3 but was noted to be 7.7/27.0 on arrival. Patient has had chronic macrocytosis and has followed with Dr. Houston of hematology in the past in this regard. Currently, he remains NPO in anticipation for EGD with Dr. Sanchez as concern for possible PUD in the setting of patient's routine use of NSAIDs for pain control. Allergies Allergy/AdvReac Type Severity Reaction Status Date / Time No Known Allergies Allergy Verified 04/22/20 13:57 Home Medications Medication Instructions Recorded Confirmed Type famotidine 10 mg tablet 10 mg PO DAILY PRN 10/08/19 04/22/20 History amlodipine 5 mg PO DAILY 04/22/20 04/22/20 History fluticasone furoate-vilanterol 1 inh INHALATION DAILY PRN 04/22/20 04/22/20 History [Breo Ellipta] ibuprofen 200 mg tablet 200 mg PO DIRECTED PRN tab 04/22/20 04/22/20 History Patient History Medical History Acid reflux disease Allergic rhinitis Hypertension Pulmonary nodule Surgical History S/P bladder tumor excision with fulguration 2008. 8-4-20 "cured" surgically per patient. S/P hip replacement S/P tooth extraction Family History Denies family history of Ovarian cancer Prostate cancer Myocardial infarction Breast cancer Colorectal cancer Social History Smoking Status: Former smoker Number of Years Since Quit: 40; Hx Alcohol Use: No Hx Substance Use: No Preferred Language: Yi Communication Ability: Effective Visual Impairment: No Limitations Hearing Ability: Use of Hearing Aid Lithographic Proofer Required: No Beliefs That Will Affect Care: None marital status: Current Living Situation: Spouse current occupational status: retired Other Information That Helps Us Care for You: No Feels Safe at Home: Yes Safety Concerns: Feels Safe At This Time Childhood Exposure to Second-Hand Smoke: No caffeine: Yes Dental Care, Regularly: No Physical Activity Frequency: Daily Seatbelt Use: always Sunscreen Use: Yes Assistive Devices: Denture - Upper, Denture - Lower, Glasses and Hearing Aid - Bilateral Review of Systems Review of Systems: All systems reviewed & are unremarkable except as noted in HPI & below Physical Exam Constitutional: WD/WN, vitals as above well developed and well nourished Eyes: EOM intact bilaterally Neck: normal visual inspection Respiratory: normal respiratory effort, lungs clear to auscultation Cardiovascular: RRR, no murmur, no edema Gastrointestinal (Abdomen): Inspection/Auscultation: abdomen normal to inspection and + hyperactive bowel sounds Percussion/Palpation: abdomen soft; abdomen nontender Musculoskeletal: Extremities: extremities normal to inspection Skin: + pallor Psychiatric: A+Ox3, euthymic affect Results & Data ([facility]) Vital Signs (Past 12 Hours) Vital Signs Temp Pulse Pulse Resp BP BP Pulse Ox 04/23/20 08:06 36.8 C 68 16 131/67 98 04/23/20 03:37 37 C 79 14 125/67 99 04/23/20 03:11 37.1 C 79 14 138/66 99 04/23/20 02:12 37.1 C 79 14 138/66 99 04/23/20 02:07 36.9 C 81 16 159/73 H 96 04/23/20 01:07 37.4 C 83 16 149/77 H 98 04/23/20 00:38 37 C 81 16 145/73 H 96 04/23/20 00:23 39 C H 76 20 151/66 H 98 04/23/20 00:08 37.3 C 75 14 153/76 H 97 04/22/20 22:17 37.0 C 91 H 16 148/67 H 100 Laboratory Results Abnormal lab results 04/22/20 04/22/20 04/22/20 Range/Units 17:03 17:03 17:03 RBC (4.7-6.1) M/uL Hgb (14.0-18.0) g/dL Hct (42-52) % MCV (80-100) fL MCHC (32-36) g/dL RDW Std Deviation (36.4-46.3) fL RDW Coeff of [place] (11.5-14.5) % Reticulocyte % (Auto) (0.5-2.0) % Reynolds # (Auto) (0.11-0.59) K/uL Immature Gran # (Auto) (0.00-0.02) K/uL ESR 31 H (0-14) mm/hr BUN 27 H (7-18) mg/dl BUN/Creatinine Ratio 24.3 H (10-20) Glucose (70-99) mg/dl Calcium (8.5-10.1) mg/dl C-Reactive Protein 15.70 H (0-0.29) mg/dl Albumin 2.8 L (3.4-5.0) gm/dl Globulin 4.6 H (2.5-4.0) gm/dl Albumin/Globulin Ratio 0.6 L (0.9-2) Ur Specific [place] (1.000-1.030) Urine Ketones (Negative) Crossmatch See Detail 04/22/20 04/22/20 04/23/20 Range/Units 17:30 19:28 05:23 RBC 2.22 L 2.67 L (4.7-6.1) M/uL Hgb 7.4 L 8.7 L (14.0-18.0) g/dL Hct 23.5 L 27.0 L (42-52) % MCV 105.9 H 101.1 H (80-100) fL MCHC 31.5 L (32-36) g/dL RDW Std Deviation 59.7 H 60.4 H (36.4-46.3) fL RDW Coeff of [place] 15.5 H 16.5 H (11.5-14.5) % Reticulocyte % (Auto) 2.3 H (0.5-2.0) % Reynolds # (Auto) 0.86 H (0.11-0.59) K/uL Immature Gran # (Auto) 0.07 H 0.07 H (0.00-0.02) K/uL ESR (0-14) mm/hr BUN (7-18) mg/dl BUN/Creatinine Ratio (10-20) Glucose (70-99) mg/dl Calcium (8.5-10.1) mg/dl C-Reactive Protein (0-0.29) mg/dl Albumin (3.4-5.0) gm/dl Globulin (2.5-4.0) gm/dl Albumin/Globulin Ratio (0.9-2) Ur Specific [place] 1.034 H (1.000-1.030) Urine Ketones Trace H (Negative) Crossmatch 04/23/20 Range/Units 05:23 RBC (4.7-6.1) M/uL Hgb (14.0-18.0) g/dL Hct (42-52) % MCV (80-100) fL MCHC (32-36) g/dL RDW Std Deviation (36.4-46.3) fL RDW Coeff of [place] (11.5-14.5) % Reticulocyte % (Auto) (0.5-2.0) % Reynolds # (Auto) (0.11-0.59) K/uL Immature Gran # (Auto) (0.00-0.02) K/uL ESR (0-14) mm/hr BUN 20 H (7-18) mg/dl BUN/Creatinine Ratio 22.1 H (10-20) Glucose 104 H (70-99) mg/dl Calcium 8.1 L (8.5-10.1) mg/dl C-Reactive Protein (0-0.29) mg/dl Albumin (3.4-5.0) gm/dl Globulin (2.5-4.0) gm/dl Albumin/Globulin Ratio (0.9-2) Ur Specific [place] (1.000-1.030) Urine Ketones (Negative) Crossmatch PG Care Time/CCT Total # of Minutes Spent Total Time Spent with Patient: Total time spent is greater than 50% in coordination of care (as documented) at patient's floor/unit and/or counseling patient: Coding Level of Care Code 18607 Initial Inpt Care Lvl 3 Diagnoses Anemia D64.9 Anemia type: unspecified type Near syncope 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
[2020-04-23] MEDS ORDERED: LIDOCAINE HCL 2% 2 ML VIAL/AMP(20MG/ML) INFIL ONE (12:38)
[2020-04-23] MEDS ORDERED: ONDANSETRON INJ 2 MG/ML 2 ML VIAL ONE (12:38)
[2020-04-23] MEDS ORDERED: PROPOFOL IV EMULSION 10 MG/ML 20 ML VIAL IV ONE (12:38)
--- NOTE | 2020-04-23 13:28 | Anesthesiology Progress Note ---
Date of Service April 23, 2020 Anesthesia Post Procedure Vital Signs Vital Signs: Temp Pulse Pulse Resp BP BP Pulse Ox 04/23/20 13:21 70 16 128/61 97 04/23/20 13:06 74 16 114/46 L 99 04/23/20 11:10 98.2 F 85 16 150/80 H 97 04/23/20 08:06 98.2 F 68 16 131/67 98 04/23/20 03:37 98.6 F 79 14 125/67 99 04/23/20 03:11 98.8 F 79 14 138/66 99 04/23/20 02:12 98.8 F 79 14 138/66 99 04/23/20 02:07 98.4 F 81 16 159/73 H 96 04/23/20 01:07 99.3 F 83 16 149/77 H 98 04/23/20 00:38 98.6 F 81 16 145/73 H 96 04/23/20 00:23 102.2 F H 76 20 151/66 H 98 04/23/20 00:08 99.1 F 75 14 153/76 H 97 04/22/20 22:17 98.6 F 91 H 16 148/67 H 100 04/22/20 21:00 79 20 98 04/22/20 20:00 88 19 143/72 H 98 04/22/20 19:30 87 15 159/76 H 04/22/20 19:01 83 16 97 04/22/20 19:00 82 14 137/69 97 04/22/20 17:11 84 17 125/64 96 04/22/20 17:01 84 20 98 04/22/20 17:00 82 17 128/65 97 04/22/20 16:31 83 19 98 04/22/20 16:30 84 25 H 134/70 100 04/22/20 16:25 86 19 99 04/22/20 16:23 90 16 140/70 95 04/22/20 16:21 83 20 99 04/22/20 16:11 98.6 F 93 H 18 173/64 H 99 Transfer of Care Handoff Completed per policy Notes Mental Status: alert / awake / arousable and participated in evaluation Patient Amnestic to Procedure: Yes Nausea / Vomiting: adequately controlled Pain: adequately controlled Airway Patency, RR, SpO2: stable & adequate BP & HR: stable & adequate Hydration State: stable & adequate Anesthetic Complications: no major complications apparent and Pt Satisfied with anesthetic care
--- NOTE | 2020-04-23 13:40 | GI REPORT ---
Patient Name: Bert Viera Procedure Date: 04/23/2020 12:42 PM Date of : 1940 Admit Type: Inpatient Age: 79 Gender: Male Attending MD: Rob Sanchez MD Procedure: Upper GI endoscopy Providers: Rob Sanchez MD Referring MD: Vini Espinoza Do Indications: Unexplained iron deficiency anemia Medicines: Monitored Anesthesia Care Complications: No immediate complications. Estimated blood loss: None. Estimated Blood Loss: Estimated blood loss: none. Procedure: Pre-Anesthesia Assessment: - Prior Anticoagulants: The patient has taken no previous anticoagulant or antiplatelet agents. - ASA Grade Assessment: II - A patient with mild systemic disease. After obtaining informed consent, the endoscope was passed under direct vision. Throughout the procedure, the patient's blood pressure, pulse, and oxygen saturations were monitored continuously. The Endoscope was introduced through the mouth, and advanced to the second part of duodenum. The upper GI endoscopy was accomplished without difficulty. The patient tolerated the procedure well. Findings: The examined esophagus was normal. The entire examined stomach was normal. One non-bleeding linear duodenal ulcer with no stigmata of bleeding was found in the duodenal bulb. The ulcer was clean-based. The second portion of the duodenum was normal. Impression: - Normal esophagus. - Normal stomach. - Non-bleeding duodenal ulcer with no stigmata of bleeding. - Normal second portion of the duodenum. - No specimens collected. Recommendation: - advance diet as tolerated - [facility] patient [facility]. -protonix 40 mg BID for 3 months -strict avoidance of NSAIDS (likely etiology for his ulcer) Rob Sanchez MD 04/23/2020 1:39:20 PM This report has been signed electronically. Note Initiated On: 04/23/2020 12:42 PM Number of Addenda: 0 I attest to the content of the Intraoperative Record and orders documented therein, exceptions below {[id number]}
--- NOTE | 2020-04-23 15:37 | Consultation ---
Date of Consultation April 23, 2020 Assessment & Plan (1) Anemia: 79 y/o male who presents with symptomatic anemia - hx of chronic macrocytosis and mild leukopenia - no evidence of hemolysis (normal bili and LDH) - no folate or B12 deficiency - no renal insufficiency - no evidence of plasma cell dyscrasia - iron studies consistent with chronic inflammation rather than iron deficiency - GI workup as per GI - transfuse blood as needed for symptomatic anemia - will consider a BM examination to r/o MDS as an outpatient - followup with Dr. Houston after discharge - thank you for the courtesy of this consultation. Feel free to contact if any questions. Present on Admission?: Yes History of Present Illness Reason for Consultation: Macrocytic anemia Attending Physician: Thomas Gomez History of Present Illness 79-year-old male who has a history of non muscle invasive bladder cancer, arthritis, biceps tear, and left hip replacement. He coming in for symptomatic anemia. He has been having spells where he is doing something and will feel weak and have to, "shake it off". He said that he will have to sit down or he is concerned that he will fall and has some associated shortness of breath. He was seen by his primary doctor one week prior and his hgb was 8.2 and when he saw him today it was 7.7 and he was sent to the ER for symptomatic anemia. He has not had any blood in his bowel movements. His last colonoscopy was over 30 years ago and polyps were removed. Patient has been evaluated by Dr. Houston from hematology for a possible Macrocytic anemia/MDS. He smoked 20 pack years and quit 50 years ago. Family history is significant for stomach cancer, prostate cancer and breast and ovarian cancer. Patient was transfused 1 PRBC after admission and underwent EGD this afternoon. Patient was seen and examined at bedside. Lab data and imaging studies were reviewed. Allergies Allergy/AdvReac Type Severity Reaction Status Date / Time No Known Allergies Allergy Verified 04/22/20 13:57 Home Medications Medication Instructions Recorded Confirmed Type famotidine 10 mg tablet 10 mg PO DAILY PRN 10/08/19 04/22/20 History amlodipine 5 mg PO DAILY 04/22/20 04/22/20 History fluticasone furoate-vilanterol 1 inh INHALATION DAILY PRN 04/22/20 04/22/20 History [Breo Ellipta] ibuprofen 200 mg tablet 200 mg PO DIRECTED PRN tab 04/22/20 04/22/20 History Patient History Medical History Acid reflux disease Allergic rhinitis Hypertension Pulmonary nodule Surgical History S/P bladder tumor excision with fulguration 10-08-19 "cured" surgically per patient. 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 FATIGUE. NEAR SYNCOPE Eyes: Negative for event change of vision ENT: Negative for epistaxis, nasal discharge, sore throat, or deafness Cardiovascular: Negative for anginal type chest pain, palpitations, dizziness, diaphoresis Respiratory: Negative for new shortness of breath, hemoptysis, or purulent cough. EXERTIONAL DYSPNEA Gastrointestinal: Negative for diarrhea, hematemesis, melena, nausea, vomiting, or dyspepsia Integumentary (skin): Negative for rash or jaundice discoloration Genitourinary: Negative for urinary frequency, hematuria, or dysuria Neurological: Negative for weakness, seizure activity, headache, or dizziness Lymphatic/Hematologic: Negative for petechiae, bleeding or new adenopathy Musculoskeletal: Negative for new joint or back pain Allergic/Immunologic: Negative for unusual rash or pruritus Physical Exam Physical Exam: Constitutional: Vitals are stable Eyes: Eyes are BONILLA EOMI without conjunctival erythema or icterus. ENT: External examination was negative for masses. Neck: Negative for masses or palpable thyromegaly. Respiratory: Lung sounds were generally clear bilaterally. Cardiovascular: Heart was RRR without significant murmur, gallops or rubs. Gastrointestinal: The abdomen was soft with normal bowel sounds. Lymphatic system: There was no palpable peripheral lymphadenopathy. Musculoskeletal System: The musculoskeletal system seemed concordant with age. Skin: The skin was negative for jaundice. Neurologic Exam: The exam was negative for any focal findings. Extremities: Negative for edema or erythema Results & Data ([facility]) Vital Signs (Past 12 Hours) Vital Signs Temp Pulse Pulse Resp BP BP Pulse Ox 04/23/20 15:00 74 18 139/55 L 98 04/23/20 14:30 36.8 C 74 16 145/66 H 98 04/23/20 14:00 36.6 C 74 16 155/58 H 98 04/23/20 13:36 69 16 120/57 L 96 04/23/20 13:21 70 16 128/61 97 04/23/20 13:06 74 16 114/46 L 99 04/23/20 11:10 36.8 C 85 16 150/80 H 97 04/23/20 08:06 36.8 C 68 16 131/67 98 04/23/20 03:37 37 C 79 14 125/67 99 Laboratory Results Abnormal lab results 04/22/20 04/22/20 04/22/20 Range/Units 17:03 17:03 17:03 RBC (4.7-6.1) M/uL Hgb (14.0-18.0) g/dL Hct (42-52) % MCV (80-100) fL MCHC (32-36) g/dL RDW Std Deviation (36.4-46.3) fL RDW Coeff of Rneo (11.5-14.5) % Reticulocyte % (Auto) (0.5-2.0) % [place] # (Auto) (0.11-0.59) K/uL Immature Gran # (Auto) (0.00-0.02) K/uL ESR 31 H (0-14) mm/hr BUN 27 H (7-18) mg/dl BUN/Creatinine Ratio 24.3 H (10-20) Glucose (70-99) mg/dl Calcium (8.5-10.1) mg/dl C-Reactive Protein 15.70 H (0-0.29) mg/dl Albumin 2.8 L (3.4-5.0) gm/dl Globulin 4.6 H (2.5-4.0) gm/dl Albumin/Globulin Ratio 0.6 L (0.9-2) Ur Specific [place] (1.000-1.030) Urine Ketones (Negative) Crossmatch See Detail 04/22/20 04/22/20 04/23/20 Range/Units 17:30 19:28 05:23 RBC 2.22 L 2.67 L (4.7-6.1) M/uL Hgb 7.4 L 8.7 L (14.0-18.0) g/dL Hct 23.5 L 27.0 L (42-52) % MCV 105.9 H 101.1 H (80-100) fL MCHC 31.5 L (32-36) g/dL RDW Std Deviation 59.7 H 60.4 H (36.4-46.3) fL RDW Coeff of [place] 15.5 H 16.5 H (11.5-14.5) % Reticulocyte % (Auto) 2.3 H (0.5-2.0) % [place] # (Auto) 0.86 H (0.11-0.59) K/uL Immature Gran # (Auto) 0.07 H 0.07 H (0.00-0.02) K/uL ESR (0-14) mm/hr BUN (7-18) mg/dl BUN/Creatinine Ratio (10-20) Glucose (70-99) mg/dl Calcium (8.5-10.1) mg/dl C-Reactive Protein (0-0.29) mg/dl Albumin (3.4-5.0) gm/dl Globulin (2.5-4.0) gm/dl Albumin/Globulin Ratio (0.9-2) Ur Specific [place] 1.034 H (1.000-1.030) Urine Ketones Trace H (Negative) Crossmatch 04/23/20 Range/Units 05:23 RBC (4.7-6.1) M/uL Hgb (14.0-18.0) g/dL Hct (42-52) % MCV (80-100) fL MCHC (32-36) g/dL RDW Std Deviation (36.4-46.3) fL RDW Coeff of [place] (11.5-14.5) % Reticulocyte % (Auto) (0.5-2.0) % [place] # (Auto) (0.11-0.59) K/uL Immature Gran # (Auto) (0.00-0.02) K/uL ESR (0-14) mm/hr BUN 20 H (7-18) mg/dl BUN/Creatinine Ratio 22.1 H (10-20) Glucose 104 H (70-99) mg/dl Calcium 8.1 L (8.5-10.1) mg/dl C-Reactive Protein (0-0.29) mg/dl Albumin (3.4-5.0) gm/dl Globulin (2.5-4.0) gm/dl Albumin/Globulin Ratio (0.9-2) Ur Specific [place] (1.000-1.030) Urine Ketones (Negative) Crossmatch Diagnostic Findings CT ABDOMEN AND PELVIS 04/22/20 IMPRESSION: 1. No evidence of bowel obstruction. No evidence of free air 2. Diverticulosis. No evidence of acute diverticulitis 3. Normal appendix 4. Small left adrenal adenoma 5. Large bilateral renal cysts. 6. Mild dilatation left renal collecting system. No ureteral or bladder calculi identified 7. Prostatomegaly
--- NOTE | 2020-04-23 21:15 | Hospitalist Progress Note ---
Date of Service April 23, 2020 Assessment & Plan (1) Near syncope: 79 yo M w/ pMHx. of bladder cancer, hip replacement, biceps tear, OA and RA presents with symptomatic anemia unclear etiology. Chronically worsened symptomatic macrocytic anemia, with elevated RDW and ferritin > 1400 in the setting of NSAID use concern for gastric ulcers. Previous worked up by hematology w/ Dr. Houston. for dyscrasia although differential also includes B12 or folate deficiency, anemia of chronic disease, UA w/o blood, currently patient is stable CT a/p with findings of diverticulosis, mild dilation of the left renal collecting system CXR with no active disease - admit to med/surg - Clean duodenal ulcer with bleeding in setting of NSAID therapy -Acute blood loss anemia treated with 1 unit of PRBC. - Hgb 7.7, on admission improved after transfusion - routine hematology consult w/ Dr. Houston -Appreciate input from hem onc. -S/P EGD. will monitor overnight. If level are stable will discharge Acute weight loss, MODERATE MALNUTRITION in the setting of prior bladder cancer, with smoking history and family history of cancer and no colon cancer screening in the past 30 years concerning for possible bladder, lung or colon cancer low albumin - GI consult as above, could consider outpatient scope for screening if not done in-house - continue to follow pulmonary nodule with imaging - ensure f/u with urology to monitor bladder cancer for recurrence potentially on an outpatient basis - continue evaluation of weight loss in the outpatient setting HTN - continue home Amlodipine Discharge issues given presyncope and weight loss - PT/OT eval and treat - case mgmt consulted for discharge planning DVT prophylaxis: SCD's given symptomatic anemia of unclear source will hold off on chemical prophylaxis at this time Code: DNR/DNI Diet: NPO at midnight COVID: negative 04/22 (2) Anemia: Admission and Anticipated Discharge Date Admission Date: April 22, 2020 Subjective Patient reports feeling well. He has no new complaints. Review of Systems Review of Systems: All systems reviewed & are unremarkable except as noted in HPI & below Physical Exam Physical Exam: Constitutional: Vitals are stable Eyes: Eyes are BONILLA EOMI without conjunctival erythema or icterus. ENT: Normal inspection Neck: Negative for masses or palpable thyromegaly. Respiratory: Lung sounds were generally clear bilaterally. Cardiovascular: Heart was RRR without significant murmur, gallops or rubs. Gastrointestinal: The abdomen was soft with normal bowel sounds. Skin: No jaundice Extremities: Negative for edema or erythema Results & Data Results & Data ([facility]) Vital Signs (Past 12 Hours) Vital Signs Temp Pulse Pulse Resp BP Pulse Ox 04/23/20 20:09 37.2 C 84 18 141/73 H 99 04/23/20 17:00 37.1 C 97 H 18 147/68 H 97 04/23/20 16:00 37 C 74 18 132/60 99 04/23/20 15:00 74 18 139/55 L 98 04/23/20 14:30 36.8 C 74 16 145/66 H 98 04/23/20 14:00 36.6 C 74 16 155/58 H 98 04/23/20 13:36 69 16 120/57 L 96 04/23/20 13:21 70 16 128/61 97 04/23/20 13:06 74 16 114/46 L 99 04/23/20 11:10 36.8 C 85 16 150/80 H 97 PG Care Time/CCT Total # of Minutes Spent Total Time Spent with Patient: Total time spent is greater than 50% in coordination of care (as documented) at patient's floor/unit and/or counseling patient: Coding Level of Care Code 93595 Subseq Hosp Care Lvl 3 Diagnoses Near syncope R55 Anemia D64.9 Anemia type: unspecified type (1) Anemia Anemia type: unspecified type Qualified Code(s): D64.9 - Anemia, unspecified
[2020-04-23] MEDS ORDERED: MELATONIN 3 MG TAB PO PRN (21:35)
--- NOTE | 2020-04-23 21:50 | Billing Data ---
Date of Service April 23, 2020 Coding Level of Care Code 37402 Initial Inpt Care Lvl 3
--- NOTE | 2020-04-24 05:59 | Electrocardiogram Report ---
Test Reason : Blood Pressure : / mmHG Vent. Rate : 086 BPM Atrial Rate : 086 BPM P-R Int : 184 ms QRS Dur : 094 ms QT Int : 378 ms P-R-T Axes : 086 034 062 degrees QTc Int : 452 ms Sinus rhythm with Premature atrial complexes Otherwise normal ECG When compared with ECG of 11-JAN-2017 10:17, Premature atrial complexes are now Present Confirmed by Darian Sewell [id number]) on 04/24/2020 5:58:53 AM Referred By: Vini Espinoza Confirmed By:Darian Sewell
[2020-04-24] MEDS: PANTOprazole 40 MG TAB PO SCH (08:49)
[2020-04-24] MEDS: amLODIPine BESYLATE 5 MG TAB PO SCH (08:49)
[2020-04-24] MEDS: MULTIVITAMIN TAB PO SCH (08:49)
--- NOTE | 2020-04-24 10:17 | Gastroenterology Progress Note ---
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 Diet as tolerated. 2. Continue Pantoprazole 40 mg by mouth twice daily. 4. Avoid NSAID pain relievers. 5. Stable for D/C from GI standpoint if cleared by primary team. Recommend follow up in our office in 2 weeks upon discharge. 6. Will sign off at this time. Admission and Anticipated Discharge Date Admission Date: April 22, 2020 Subjective Patient reports he is feeling well today s/p EGD with findings of clean-based duodenal ulcer. H&H is stable and no overt GIB sx. Desires discharge today. Review of Systems Constitutional: no fatigue Gastrointestinal: no problem reported Neurologic: no syncope Physical Exam Constitutional: well developed and well nourished Eyes: EOM intact bilaterally Neck: normal visual inspection Respiratory: normal respiratory effort Skin: normal color Psychiatric: A+Ox3, euthymic affect Results & Data Results & Data ([facility]) Vital Signs (Past 12 Hours) Vital Signs Temp Pulse Resp BP Pulse Ox 04/24/20 07:45 36.7 C 77 16 133/61 96 04/24/20 03:00 37.1 C 84 18 131/64 97 04/23/20 23:18 37.6 C H 81 16 130/63 94 PG Care Time/CCT Total # of Minutes Spent Total Time Spent with Patient: Total time spent is greater than 50% in coordination of care (as documented) at patient's floor/unit and/or counseling patient: Coding Level of Care Code 07169 Subs Hosp Care Lvl 3 Diagnoses Duodenal ulcer K26.9 Anemia D64.9 Anemia type: unspecified type 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
[2020-04-24 10:43] LABS: Hematocrit (blood only) 26.3 % (42-52); Hemoglobin 8.7 g/dL (14.0-18.0); Mean Corpuscular Hemoglobin 33.7 pg (25-34); Mean Corpuscular Hgb Conc 33.1 g/dL (32-36); Mean Corpuscular Volume 101.9 fL (80-100); Mean Platelet Volume 8.7 fL (7.4-10.4); Platelet Count 196 K/uL (130-400); RDW Coefficient of Variation 16.2 % (11.5-14.5); RDW Standard Deviation 59.6 fL (36.4-46.3); Red Blood Count 2.58 M/uL (4.7-6.1); White Blood Count 7.84 K/uL (4.8-10.8)
[2020-04-24 10:59] LABS: Eosinophils # (auto) 0.02 K/uL (0-0.5); Eosinophils % (auto) 0.3 %; Immature Granulocytes % (auto) 1.3 %; Lymphocytes # (auto) 0.67 K/uL (1.2-3.4); Lymphocytes % (auto) 8.5 %; Monocytes # (auto) 0.99 K/uL (0.11-0.59); Monocytes % (auto) 12.6 %; Neutrophils # (auto) 6.06 K/uL (1.4-6.5); Neutrophils % (auto) 77.3 %
[2020-04-24 11:20] LABS: BUN Creatinine Ratio 18.2 (10-20); Calcium 8.4 mg/dl (8.5-10.1); Creatinine Clr Calc Pharmacy 58.5 ml/min; Est GFR (African American) 83.5; Potassium 3.6 mmol/L (3.5-5.1)
[2020-04-24 19:36] LABS: Alpha 1 Globulin 0.5 g/dL (0.2-0.3); Alpha 2 Globulin 1.1 g/dL (0.5-0.9); Beta-1-Globulin 0.4 g/dL (0.4-0.6); Beta-2-Globulin 0.5 g/dL (0.2-0.5); Gamma Globulin 1.2 g/dL (0.8-1.7); Monoclonal Protein Band 1 DNR g/dL (NONE DETECTED); Monoclonal Protein Band 2 DNR g/dL (NONE DETECTED); Monoclonal Protein Band 3 DNR g/dL (NONE DETECTED); Total Protein 6.6 g/dL (6.1-8.1)
== END 2020-04-24 15:05 | disposition home or self-care (01) | DRG 377 ==
LOC: ED 16:08 → SUATTDRO 21:17 → 3N 21:17

== ENCOUNTER 2024-09-05 09:40 | Inpatient (IN) ==
--- NOTE | 2024-09-05 10:14 | Emergency Department Note ---
Impression & Plan Sepsis, Rhabdomyolysis, ALYSON (acute kidney injury), Leukocytosis, Generalized weakness, Elevated troponin, Elevated CK, Elevated procalcitonin, Elevated lactic acid level, Rhinovirus infection, Enterovirus infection ED Provider Note HISTORY OF PRESENT ILLNESS: Patient is a 84-year-old male presenting with generalized weakness. Patient arrives via EMS. Family had called 911 because the patient was unable to get off of the toilet. Granddaughter reportedly stated the patient was very weak getting up out of bed today and she assisted him to the bathroom but was unable to get him up off the toilet. She subsequently called 911. She reports that the patient is "probably dehydrated" because he has had a decreased appetite over the last few days. Patient denies any recent falls. He is complaining of some left hip pain. He reports that this has been ongoing "for a long time." He states that "it just seems to be turned weird." He denies any chest pain or shortness of breath. No reported recent fevers. Patient denies any abdominal pain, nausea or vomiting. He reports feeling very tired and weak. ROS: as above PHYSICAL EXAM: Constitutional: Patient appears in no acute distress. Frail-appearing HENT: Head: Normocephalic and atraumatic. Eyes: EOMI, PERRL Mouth/Throat: Mucous membranes moist. Neck: Trachea midline. Neck supple. Cardiovascular: RRR, No murmurs, rubs or gallops. Intact distal pulses. Pulmonary/Chest: No respiratory distress. Breath sounds clear and equal bilaterally. No wheezes or rales. Abdominal: Abdomen soft, no tenderness, rebound or guarding. Musculoskeletal: Pelvis is stable. No obvious deformities. Patient has tenderness to palpation over the left lateral pelvis and left lateral proximal femur. Left leg is internally rotated, but he is able to straight leg raise bilaterally. Skin: Warm and dry. No rash, erythema, pallor or cyanosis Psychiatric: Appropriate mood and affect for situation. Neurological: Alert and keenly responsive. CN II-XII grossly intact, moving all extremities equally and fully. MDM: - Vitals signs stable. - History obtained via EMS and patient. History as above. - Chronic conditions affecting care: HTN; hx of bladder cancer; BPH macrocytic anemia - Differential diagnoses include, but are not limited to: CVA; intracranial hemorrhage; ACS; electrolyte abnormality; dehydration; UTI; pneumonia - Order placed for continuous cardiac monitoring. At this time, monitor showed rate of 82 bpm with normal sinus rhythm, per my interpretation. - External medical records reviewed. Oncology/hematology follow-up visit note dated 08/23/2024 was reviewed. Patient follows in their clinic for macrocytic anemia with history of bladder cancer. Per their documentation, he is transfusion independent. - EKG image interpreted by myself showed normal sinus rhythm. Rate 85 bpm. QT 400. No acute ischemic changes. - Laboratory workup interpreted by myself showed leukocytosis (WBC 29.95) with neutrophil predominance; chronic anemia; normal INR; slight hyponatremia (Na 134); ALYSON (Cr 1.98); elevated AST (80); elevated CK (4836); elevated troponin (37.8); elevated procalcitonin (1.92); normal TSH; elevated lactic acid (2.4) - CXR image reviewed by myself is negative for pneumonia, per my interpretation. However, radiology is expressing concern about a potential left lower lobe consolidation concerning for early pneumonia. - Viral respiratory panel positive for rhinovirus/enterovirus - Patient given 2L NS in ER. Patient's sepsis fluid volume calculation based on actual body weight is 1833.00 mL. - Blood cultures obtained - Patient given 2g IV rocephin empirically. - CT head wo contrast negative for acute intracranial pathology. - Xray pelvis with left hip negative for fracture or dislocation. - UA negative for infection. - Discussion was had with child support case officer about patient's case and need for admission - Hospitalist consulted for admission - Patient admitted to [facility] service for further evaluation and management. I have personally spent 46 minutes of critical care time in the direct management of this patient. This includes bedside care, interpretation of diagnostic studies, and testing, discussion with consultants, patient, and family members, and other required patient management activities. This 46 minutes is in excess of all separately billable procedures. ASSESSMENT AND PLAN: Diagnosis: Sepsis; leukocytosis; ALYSON; elevated CK; elevated troponin; elevated procalcitonin; elevated lactic acid level; rhabdomyolysis; generalized weakness; rhinovirus infection; enterovirus infection Plan: Admit Past Med/Surg History Problem List (Updated 09/05/24 @ 12:15 by Ilene Kaminski MD) Enterovirus infection (Acute) Rhinovirus infection (Acute) Elevated lactic acid level (Acute) Elevated procalcitonin (Acute) Elevated CK (Acute) Elevated troponin (Acute) Generalized weakness (Acute) Leukocytosis (Acute) ALYSON (acute kidney injury) (Acute) Rhabdomyolysis (Acute) Sepsis (Acute) 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 BP stable recently. Medical History Borderline high blood pressure Arthritis Hx of bladder cancer Chronic anemia Hx of duodenal ulcer Hearing loss Surgical History History of cystoscopy History of total hip arthroplasty H/O transurethral resection of prostate H/O eye surgery History of cataract surgery History of esophageal dilatation History of esophagogastroduodenoscopy (EGD) History of colonoscopy S/P tooth extraction S/P bladder tumor excision with fulguration Family History Brother Cancer Brother Cancer Other No family history of adverse response to anesthesia Denies family history of Ovarian cancer Prostate cancer Myocardial infarction Breast cancer Colorectal cancer Social History (Updated 07/15/24 @ 13:41 by Christie Guerra LPN) Smoking Status: Never smoker Tobacco Type: Cigarettes Age Started Using Tobacco: 14; Age Quit Using Tobacco: 24; packs per day: 1; Cigarettes Per Day: 15-20; Second Hand Exposure: No; Do You Dip or Chew Tobacco: No; Hx Alcohol Use: No Hx Substance Use: No Preferred Language: Vietnamese Communication Ability: Effective Communication Ability Comment: inaja>uses hearing aides Visual Impairment: Limited Hearing Ability: Use of Hearing Aid Vertical Punch Operator Required: No Beliefs That Will Affect Care: None marital status: / Current Living Situation: Alone current occupational status: retired How many Children do You have: 2 Feels Safe at Home: Yes Childhood Exposure to Second-Hand Smoke: Yes Diet: regular caffeine: Yes during the past year weight has: remained stable Dental Care, Regularly: No Physical Activity Frequency: Daily Physical Activity Frequency Comment: walking Seatbelt Use: always Sunscreen Use: Yes Do you think of yourself as: straight/heterosexual Sexual Activity: has been sexually active, but not for at least 12 months Gender Identity: Male Assistive Devices: Cane, Denture - Upper, Denture - Lower, Glasses, Hearing Aid - Bilateral and Walker Allergies Allergies Allergy/AdvReac Type Severity Reaction Status Date / Time trazodone AdvReac Mild anxious, Verified 07/15/24 13:35 jittery Home Meds Home Medications Medication Instructions Recorded Confirmed menthol 2.5 % topical gel (BenGay 1 applic topical QID PRN pain 09/22/22 09/05/24 Vanishing Scent) acetaminophen 650 mg 650 mg PO Q12H PRN Pain 02/17/23 09/05/24 tablet,extended release (Tylenol Arthritis Pain) hydrocortisone 1 % topical cream 1 applic topical BID PRN Itching 02/17/23 09/05/24 (Cortizone-10) polyethylene glycol 3350 17 17 g PO DAILY PRN Constipation 02/17/23 09/05/24 gram/dose oral powder (Miralax) Results & Data (ED) Vital Signs Vital Signs - 24 hr 09/05/24 09:40 09/05/24 10:11 09/05/24 12:08 Temperature 36.7 C Temperature Source Oral Pulse Rate 83 82 Pulse Rate [Apical] 95 H Respiratory Rate 16 20 Respiratory Effort / Characteristics Non-Labored Respiratory Depth Normal Blood Pressure 125/61 Blood Pressure [Right Arm] 160/73 H Blood Pressure Mean 82 Blood Pressure Mean [Right Arm] 102 Blood Pressure Position Semi-fowlers Pulse Oximetry 99 95 Oxygen Delivery Method Room Air Room Air Sepsis Recent Fever Within 48 Hours No Sepsis New/Unexplained Change in Mental Status No Sepsis Action Taken by Nursing No Action Required Laboratory Data 09/05/24 09:50 09/05/24 09:50 Lab Results 09/05/24 09/05/24 09/05/24 Range/Units 09:50 10:16 11:19 WBC 29.95 H (4.8-10.8) K/ul RBC 2.28 L (4.70-6.10) M/uL Hgb 8.2 L (14.0-18.0) g/dl Hct 26.2 L (42.0-52.0) % MCV 114.9 H (80.0-100.0) fL MCH 36.0 H (25.0-34.0) pg MCHC 31.3 L (32.0-36.0) g/dL RDW Std Deviation 70.3 H (36.4-46.3) fL RDW Coeff of [place] 17.1 H (11.5-14.5) % Plt Count 137 (130-400) K/uL MPV 10.1 (9.4-12.4) fL Immature Gran % (Auto) 1.9 % Neut % (Auto) 83.5 % Lymph % (Auto) 1.4 % [place] % (Auto) 13.1 % Eos % (Auto) 0.0 % Baso % (Auto) 0.1 % Neut # (Auto) 24.99 H (1.40-6.50) K/uL Lymph # (Auto) 0.43 L (1.20-3.40) K/uL [place] # (Auto) 3.92 H (0.11-0.59) K/uL Eos # (Auto) 0.01 (0.00-0.50) K/uL Baso # (Auto) 0.04 (0.00-0.20) K/uL Immature Gran # (Auto) 0.56 H (0.01-0.20) K/uL Macrocytosis Present Tear Drop Cells 1+ PT 12.1 H (9.0-12.0) Seconds INR 1.1 (0.9-1.1) Sodium 134 L (136-145) mmol/L Potassium 4.3 (3.5-5.1) mmol/L Chloride 101 (98-107) mmol/L Carbon Dioxide 22 (21-32) mmol/L Anion Gap 11 (3-11) BUN 45 H (6-23) mg/dl Creatinine 1.98 H (0.6-1.4) mg/dl Est Cr Clr Drug Dosing 23.1 ml/min eGFR 32.29 BUN/Creatinine Ratio 22.7 H (10-20) Glucose 106 H (70-99(Fasting)) mg/dl Lactate (0.4-2.0) mmol/L Calcium 8.7 (8.6-10.3) mg/dl Magnesium 2.4 (1.7-2.4) mg/dl Total Bilirubin 1.0 (0.2-1.0) mg/dl AST 80 H (13-39) U/L ALT 17 (7-52) U/L Alkaline Phosphatase 57 (34-104) U/L Total Creatine Kinase 4836 H (30-223) U/L Troponin I High Sens 37.8 H (0-20) pg/ml Total Protein 7.8 (6.0-8.3) gm/dl Albumin 3.9 (3.4-5.0) gm/dl Globulin 3.9 (2.5-4.0) gm/dl Albumin/Globulin Ratio 1.0 (0.9-2) Procalcitonin 1.92 H (0-0.5) ng/ml TSH 1.863 (0.300-4.500) uIu/ml Urine Color Yellow Urine Appearance Cloudy A (Clear) Urine pH 5.5 (4.5-7.5) Ur Specific [place] 1.018 (1.000-1.030) Urine Protein 2+ H (Negative) Urine Glucose (UA) Negative (Negative) Urine Ketones Trace H (Negative) Urine Blood 3+ H (Negative) Urine Nitrite Negative (Negative) Urine Bilirubin Negative (Negative) Urine Urobilinogen Negative (Negative) Ur Leukocyte Esterase Trace H (Negative) Urine WBC (Auto) 0-5 (0-5) /hpf Urine RBC (Auto) >20 H (0-2) /hpf U Hyaline Cast (Auto) 3-5 H (0-2) /lpf U Epithel Cells (Auto) 0-2 (0-2) /hpf Urine Bacteria (Auto) None Seen (None Seen) Granular Casts Present A (None Prsent) /lpf Urine Comment Adenovirus (PCR) Not Detected (NotDetected) B. pertussis DNA (PCR) Not Detected (NotDetected) B.parapertussis DNA PCR Not Detected (NotDetected) C. pneumoniae DNA (PCR) Not Detected (NotDetected) Coronavirus OC43 (PCR) Not Detected (NotDetected) Coronavirus HKU1 (PCR) Not Detected (NotDetected) Coronavirus 229E (PCR) Not Detected (NotDetected) SARS-CoV-2 (PCR) Not Detected (NotDetected) Coronavirus NL63 (PCR) Not Detected (NotDetected) Human Metapneumovir PCR Not Detected (NotDetected) Influenza Type A (PCR) Not Detected (NotDetected) Influenza Type B (PCR) Not Detected (NotDetected) M. pneumoniae (PCR) Not Detected (NotDetected) Parainfluenza 1 (PCR) Not Detected (NotDetected) Parainfluenza 2 (PCR) Not Detected (NotDetected) Parainfluenza 3 (PCR) Not Detected (NotDetected) Parainfluenza 4 (PCR) Not Detected (NotDetected) RSV (PCR) Not Detected (NotDetected) Entero/Rhino (PCR) DETECTED A (NotDetected) 09/05/24 Range/Units 11:47 WBC (4.8-10.8) K/ul RBC (4.70-6.10) M/uL Hgb (14.0-18.0) g/dl Hct (42.0-52.0) % MCV (80.0-100.0) fL MCH (25.0-34.0) pg MCHC (32.0-36.0) g/dL RDW Std Deviation (36.4-46.3) fL RDW Coeff of [place] (11.5-14.5) % Plt Count (130-400) K/uL MPV (9.4-12.4) fL Immature Gran % (Auto) % Neut % (Auto) % Lymph % (Auto) % [place] % (Auto) % Eos % (Auto) % Baso % (Auto) % Neut # (Auto) (1.40-6.50) K/uL Lymph # (Auto) (1.20-3.40) K/uL [place] # (Auto) (0.11-0.59) K/uL Eos # (Auto) (0.00-0.50) K/uL Baso # (Auto) (0.00-0.20) K/uL Immature Gran # (Auto) (0.01-0.20) K/uL Macrocytosis Tear Drop Cells PT (9.0-12.0) Seconds INR (0.9-1.1) Sodium (136-145) mmol/L Potassium (3.5-5.1) mmol/L Chloride (98-107) mmol/L Carbon Dioxide (21-32) mmol/L Anion Gap (3-11) BUN (6-23) mg/dl Creatinine (0.6-1.4) mg/dl Est Cr Clr Drug Dosing ml/min eGFR BUN/Creatinine Ratio (10-20) Glucose (70-99(Fasting)) mg/dl Lactate 2.4 H* (0.4-2.0) mmol/L Calcium (8.6-10.3) mg/dl Magnesium (1.7-2.4) mg/dl Total Bilirubin (0.2-1.0) mg/dl AST (13-39) U/L ALT (7-52) U/L Alkaline Phosphatase (34-104) U/L Total Creatine Kinase (30-223) U/L Troponin I High Sens (0-20) pg/ml Total Protein (6.0-8.3) gm/dl Albumin (3.4-5.0) gm/dl Globulin (2.5-4.0) gm/dl Albumin/Globulin Ratio (0.9-2) Procalcitonin (0-0.5) ng/ml TSH (0.300-4.500) uIu/ml Urine Color Urine Appearance (Clear) Urine pH (4.5-7.5) Ur Specific [place] (1.000-1.030) Urine Protein (Negative) Urine Glucose (UA) (Negative) Urine Ketones (Negative) Urine Blood (Negative) Urine Nitrite (Negative) Urine Bilirubin (Negative) Urine Urobilinogen (Negative) Ur Leukocyte Esterase (Negative) Urine WBC (Auto) (0-5) /hpf Urine RBC (Auto) (0-2) /hpf U Hyaline Cast (Auto) (0-2) /lpf U Epithel Cells (Auto) (0-2) /hpf Urine Bacteria (Auto) (None Seen) Granular Casts (None Prsent) /lpf Urine Comment Adenovirus (PCR) (NotDetected) B. pertussis DNA (PCR) (NotDetected) B.parapertussis DNA PCR (NotDetected) C. pneumoniae DNA (PCR) (NotDetected) Coronavirus OC43 (PCR) (NotDetected) Coronavirus HKU1 (PCR) (NotDetected) Coronavirus 229E (PCR) (NotDetected) SARS-CoV-2 (PCR) (NotDetected) Coronavirus NL63 (PCR) (NotDetected) Human Metapneumovir PCR (NotDetected) Influenza Type A (PCR) (NotDetected) Influenza Type B (PCR) (NotDetected) M. pneumoniae (PCR) (NotDetected) Parainfluenza 1 (PCR) (NotDetected) Parainfluenza 2 (PCR) (NotDetected) Parainfluenza 3 (PCR) (NotDetected) Parainfluenza 4 (PCR) (NotDetected) RSV (PCR) (NotDetected) Entero/Rhino (PCR) (NotDetected) Administered Medications Sodium Chloride (Nss) 2,000 mls @ 999 mls/hr IV .Q2H1M ONE Stop: 09/05/24 12:38 Last Admin: 09/05/24 11:28 Dose: 999 mls/hr Documented By: CEF Discontinued Medications Ceftriaxone Sodium (Rocephin) 2,000 mg in 50 mls @ 100 mls/hr IV NOW STA Stop: 09/05/24 10:52 Last Admin: 09/05/24 11:58 Dose: 100 mls/hr Documented By: CEF Imaging Data Radiologist's Impression: Chest X-Ray 09/05/24 10:01 XR chest 1V portable CLINICAL HISTORY: weakness COMPARISON STUDY: 04/10/2023 FINDINGS: Heart size and pulmonary vasculature are normal. There is mild stranding opacity medial left lung base. No other consolidation or pleural effusion. No pneumothorax. There is a stable nodular density overlying the left lung apex, likely relates to the first costochondral junction. IMPRESSION: Possible early pneumonia left lung base. ACT 112: Negative or not required by law. Electronically signed by: Chon Castellanos M.D. 09/05/2024 10:[address] 09/05/24 10:01 CT SCAN OF THE BRAIN WITHOUT IV CONTRAST CLINICAL HISTORY: Weakness. Difficulty ambulating. COMPARISON STUDY: Head CT July 30, 2022. TECHNIQUE: Unenhanced axial CT scan of the brain was performed from the vertex to the skull base. A dose lowering technique was utilized adhering to the principles of ALARA. CT DOSE: 625.8 mGy.cm FINDINGS: Brain parenchyma: No acute intracranial hemorrhage, midline shift or mass effect is present. Hurtado-white matter differentiation is preserved. There are no extra- axial fluid collections. There are no findings to suggest acute dural sinus thrombosis or acute territorial infarct. Prominence of the extra-axial spaces is unchanged and due to atrophy. White matter hypodensities favor small vessel disease. Ventricles, sulci, cisterns: There is no hydrocephalus. The basal cisterns are patent. Calvarium: Occipital bone lucencies are unchanged from earlier exams and benign given instability. Sinuses and mastoids: The visualized paranasal sinuses are clear. The mastoid air cells are well pneumatized. Orbits: The bony orbits are grossly intact. IMPRESSION: No acute intracranial findings. No change in appearance of the brain. ACT 112: Negative or not required by law. Electronically signed by: Shad Farmer M.D. 09/05/2024 10:38 AM Hip/Pelvis X-Ray 09/05/24 10:01 XR hip LT 2V w pelvis CLINICAL HISTORY: L hip pain COMPARISON: 10/31/2023 FINDINGS: Left hip prosthesis shows no hardware complication. No fracture or dislocation. There are moderate degenerative changes at the right hip and lower lumbar spine. IMPRESSION: No fracture seen. ACT 112: Negative or not required by law. Electronically signed by: Chon Castellanos M.D. 09/05/2024 10:26 AM Discharge Plan Visit Data Chief Complaint: Leg Weakness, Bilateral ED Provider: Ilene Kaminski Discharge Problem: Sepsis, Rhabdomyolysis, ALYSON (acute kidney injury), Leukocytosis, Generalized weakness, Elevated troponin, Elevated CK, Elevated procalcitonin, Elevated lactic acid level, Rhinovirus infection, Enterovirus infection Condition: Serious Forms Stand Alone Forms: [facility] Prescriptions Prescriptions: No Action BenGay Vanishing Scent 2.5 % gel 1 applic topical QID PRN (Reason: pain) acetaminophen [Tylenol Arthritis Pain] 650 mg tablet extended release 650 mg PO Q12H PRN (Reason: Pain) polyethylene glycol 3350 [Miralax] 17 gram/dose powder 17 g PO DAILY PRN (Reason: Constipation) hydrocortisone [Cortizone-10] 1 % cream 1 applic topical BID PRN (Reason: Itching) Referrals Referrals: Brea Etienne CRNP [Primary Care Provider] -
[2024-09-05 10:20] LABS: Hematocrit (blood only) 26.2 % (42.0-52.0); Hemoglobin 8.2 g/dl (14.0-18.0); Mean Corpuscular Hemoglobin 36.0 pg (25.0-34.0); Mean Corpuscular Volume 114.9 fL (80.0-100.0); Platelet Count 137 K/uL (130-400); RDW Standard Deviation 70.3 fL (36.4-46.3); Red Blood Count 2.28 M/uL (4.70-6.10); White Blood Count 29.95 K/ul (4.8-10.8)
--- NOTE | 2024-09-05 10:28 | XRay Report ---
XR hip LT 2V w pelvis CLINICAL HISTORY: L hip pain COMPARISON: 10/31/2023 FINDINGS: Left hip prosthesis shows no hardware complication. No fracture or dislocation. There are moderate degenerative changes at the right hip and lower lumbar spine. IMPRESSION: No fracture seen. ACT 112: Negative or not required by law. Electronically signed by: Chon Castellanos M.D. 09/05/2024 10:26 AM
--- NOTE | 2024-09-05 10:29 | XRay Report ---
XR chest 1V portable CLINICAL HISTORY: weakness COMPARISON STUDY: 04/10/2023 FINDINGS: Heart size and pulmonary vasculature are normal. There is mild stranding opacity medial lef t lung base. No other consolidation or pleural effusion. No pneumothorax. There is a stable nodular d ensity overlying the left lung apex, likely relates to the first costochondral junction. IMPRESSION: Possible early pneumonia left lung base. ACT 112: Negative or not required by law. Electronically signed by: Chon Castellanos M.D. 09/05/2024 10:28 AM
[2024-09-05 10:31] LABS: Immature Granulocytes # (auto) 0.56 K/uL (0.01-0.20); Immature Granulocytes % (auto) 1.9 %; Macrocytosis Present; Tear Drop Cells 1+
[2024-09-05 10:36] LABS: Anion Gap 11.0 (3-11); Blood Urea Nitrogen 45.0 mg/dl (6-23); Calcium 8.7 mg/dl (8.6-10.3); Carbon Dioxide 22.0 mmol/L (21-32); Chloride 101.0 mmol/L (98-107); Creatinine Clr Calc Pharmacy 23.1 ml/min; Glucose 106.0 mg/dl (70-99(Fasting)); Potassium 4.3 mmol/L (3.5-5.1); Sodium 134.0 mmol/L (136-145)
--- NOTE | 2024-09-05 10:39 | CT Scan Report ---
CT SCAN OF THE BRAIN WITHOUT IV CONTRAST CLINICAL HISTORY: Weakness. Difficulty ambulating. COMPARISON STUDY: Head CT July 30, 2022. TECHNIQUE: Unenhanced axial CT scan of the brain was performed from the vertex to the skull base. A dose lowering technique was utilized adhering to the principles of ALARA. CT DOSE: 625.8 mGy.cm FINDINGS: Brain parenchyma: No acute intracranial hemorrhage, midline shift or mass effect is present. Hurtado-whi te matter differentiation is preserved. There are no extra-axial fluid collections. There are no find ings to suggest acute dural sinus thrombosis or acute territorial infarct. Prominence of the extra-ax ial spaces is unchanged and due to atrophy. White matter hypodensities favor small vessel disease. Ventricles, sulci, cisterns: There is no hydrocephalus. The basal cisterns are patent. Calvarium: Occipital bone lucencies are unchanged from earlier exams and benign given instability. Sinuses and mastoids: The visualized paranasal sinuses are clear. The mastoid air cells are well pneu matized. Orbits: The bony orbits are grossly intact. IMPRESSION: No acute intracranial findings. No change in appearance of the brain. ACT 112: Negative or not required by law. Electronically signed by: Shad Farmer M.D. 09/05/2024 10:38 AM
[2024-09-05 10:41] LABS: INR 1.1 (0.9-1.1); Prothrombin Time 12.1 Seconds (9.0-12.0)
[2024-09-05 10:50] LABS: Thyroid Stimulating Hormone 1.863 uIu/ml (0.300-4.500)
[2024-09-05 10:56] LABS: Alanine Aminotransferase 17.0 U/L (7-52); Albumin Globulin Ratio 1.0 (0.9-2); Alkaline Phosphatase 57.0 U/L (34-104); Bilirubin,Total 1.0 mg/dl (0.2-1.0); Creatine Kinase 4836.0 U/L (30-223); Globulin 3.9 gm/dl (2.5-4.0); Magnesium 2.4 mg/dl (1.7-2.4); Total Protein 7.8 gm/dl (6.0-8.3)
[2024-09-05 11:14] LABS: Chlamydia pneumoniae PCR Not Detected (NotDetected); Coronavirus 229E PCR Not Detected (NotDetected); Coronavirus CoV-2 (COVID19)PCR Not Detected (NotDetected); Coronavirus HKU1 PCR Not Detected (NotDetected); Coronavirus NL63 PCR Not Detected (NotDetected); Coronavirus OC43PCR Not Detected (NotDetected); Human Metapneumovirus PCR Not Detected (NotDetected); Parainfluenza Virus 1 PCR Not Detected (NotDetected); Parainfluenza Virus 2 PCR Not Detected (NotDetected); Parainfluenza Virus 3 PCR Not Detected (NotDetected); Parainfluenza Virus 4 PCR Not Detected (NotDetected); Respiratory Syncytial VirusPCR Not Detected (NotDetected); Rhinovirus/Enterovirus PCR DETECTED (NotDetected)
[2024-09-05] MEDS: SODIUM CHLORIDE 0.9% 2,000 ML IV ONE (11:28)
[2024-09-05] MEDS: cefTRIAXone SODIUM 2,000 MG/50 ML BAG IV STA (11:58)
[2024-09-05 12:14] LABS: Appearance Urine Cloudy (Clear); Bacteria Urine Automated None Seen (None Seen); Epithelial Cell Urine Auto 0-2 /hpf (0-2); Glucose Urine UA Negative (Negative); RBC Urine Automated >20 /hpf (0-2); WBC Urine Automated 0-5 /hpf (0-5)
--- NOTE | 2024-09-05 14:38 | Electrocardiogram Report ---
Test Reason : Blood Pressure : */* mmHG Vent. Rate : 85 BPM Atrial Rate : 85 BPM P-R Int : 200 ms QRS Dur : 86 ms QT Int : 400 ms P-R-T Axes : 82 26 68 degrees QTcB Int : 476 ms Poor data quality, interpretation may be adversely affected Sinus rhythm with Premature supraventricular complexes Nonspecific ST and T wave abnormality Abnormal ECG When compared with ECG of 10-Apr-2023 09:37, Nonspecific T wave abnormality now evident in Lateral leads Confirmed by Lyle Raymond ([id number]) on 09/05/2024 2:38:33 PM Referred By: REFERRED SELF Confirmed By: Lyle Raymond
--- NOTE | 2024-09-05 17:58 | History & Physical Report ---
Date of Service September 05, 2024 Assessment & Plan (1) Sepsis: Plan: As above in the History of Present Illness. (2) Toxic metabolic encephalopathy: Plan: As above in the History of Present Illness. (3) Traumatic rhabdomyolysis: Plan: As above in the History of Present Illness. (4) Acute kidney failure: Plan: As above in the History of Present Illness. (5) Acute hyponatremia: Plan: As above in the History of Present Illness. (6) Lactic acid blood increased: Plan: As above in the History of Present Illness. (7) Ambulatory dysfunction: Plan: As above in the History of Present Illness. (8) Demand ischemia: Plan: As above in the History of Present Illness. Admission and Anticipated Discharge Date Admission Date: September 05, 2024 History of Present Illness Chief Complaint: Unknown as patient is lethargic, obtunded, and non-verbal. Primary Care Provider: MATEO Rodriguez 84 years old male with PMH of DNR/DNI @ home alone, chronic ambulatory dysfunction utilizing walker @ home alone, former tobacco abuse with no subsequent diagnosis of COPD, not on home O2 or home steroids, severe hearing loss with no binaural hearing aids in situ, HTN, CKD stage III with baseline creatinine range, 1.24 - 1.39 (01/19/2022 - 09/21/2023), chronic thrombocytopenia with baseline platelet range, 105-129 (01/19/2022 - 09/02/2024), chronic macrocytic, hypochromic anemia with progressive decline in Hb 12.2 g/dL (01/11/2017, 10:20am) to 8.3 g/dL (09/02/2014, 9:30am), bladder CA, s/p TURBT, duodenal ulcer, and ampicillin-resistant, unasyn-resistant, gentamicin-resistant, bactrim-resistant, non-ESBL E. coli UTI (as noted on 07/14/2023, 11:30am urine culture) wearing chronic daily Depends diapers, and stage II right gluteal ulcer (of 1 week duration as per patient's granddaughter) present on admission date 09/05/2024, who was found sitting on the toilet bowl while still wearing his Depends diapers, which were saturated with urine, no feces, unable to get up / stand up on 09/05/2024, 7:30am, by his granddaughter who lives next door to the patient, awake, but lethargic with both eyes closed, opening upon hearing his name called by his granddaughter, but not speaking in response to queries from his granddaughter. Patient was subsequently BIBA to [facility] ER on 09/05/2024 for further evaluation. In [facility] ER bed #C10, patient was afebrile @ 36.7 degrees Celsius, HR 83, RR 16, O2 sat 99% on room air, and BP 125/61 (09/05/2024, 9:40am). cf., repeat HR 95, RR 20 (09/05/2024, 12:08pm). Exam was noted for lethargy, obtundation, and non-verbal state. Both eyes were closed and remained closed even on calling patient by his name and on nipple pinch / sternal rub. Stage II right gluteal ulcer (of 1 week duration as per patient's granddaughter), ~10 cm diameter, solitary lesion, with surrounding erythema, but no edema, induration, warmth, tenderness, crepitus, fluctuance (sanguineous, serous, suppurative), malodor, or lymphangitic streaking, was also noted. Labs in [facility] ER bed #C10 included: WBC 29.95, N84 L1 M13, Hb 8.2, MCV 114.9, MCHC 31.3, platelet 137 (09/05/2024, 9:50am). CK 4,836 U/L (09/05/2024, 9:50am). Na 134, K 4.3, BUN 45, creatinine 1.98, GFR 32.3, glucose 106, Ca 8.7, Mg 2.4 (09/05/2024, 9:50am). AST 80, ALT 17, ALK PHOS 57, TBili 1.0 (09/05/2024, 9:50am). Lactic acid #1 2.4 mmol/L (09/05/2024, 9:50am). Lactic acid #2 1.4 mmol/L (09/05/2024, 1:33pm). Lactic acid #3 1.3 mmol/L (09/05/2024, 2:13pm). Procalcitonin #1 1.92 ng/mL (09/05/2024, 9:50am). MRSA nares PCR negative (09/05/2024, 2:00pm). BIOFIRE respiratory PCR panel (09/05/2024, 10:16am): Rhinovirus+/enterovirus+ U/A (09/05/2024, 11:19am): cloudy yellow, blood 3+ with RBC > 20, LE trace, nitrite-, WBC 0-5, bacteria 0, epithelial cells 0 Blood culture #1 (09/05/2024, 11:37am): Blood culture #2 (09/05/2024, 11:47am): TSH 1.863 uIU/mL (09/05/2024, 9:50am). INR 1.1 (09/05/2024, 9:50am). Troponin-I #1 37.8 pg/mL (, 9:50am). Troponin-I #1 38.5 pg/mL (09/05/2024, 11:47am). Troponin-I #2 69.2 pg/mL (09/05/2024, 2:13pm). Additional testing in [facility] ER included: Portable CXR (09/05/2024, 10:01am): LLL infiltrate. No effusion, cardiomegaly, pulmonary vascular congestion, or pneumothorax (by my review). CT brain without contrast (09/05/2024, 10:01am): No acute bleed, mass, or midline shift. Left hip x-ray (09/05/2024, 10:01am): Left hip prosthesis shows no hardware complication. No fracture or dislocation. There are moderate degenerative changes at the right hip and lower lumbar spine. Patient was subsequently admitted to the inpatient hospitalist service @ [facility] on 09/05/2024 with the following diagnoses: 1. Severe sepsis, without septic shock, of unclear etiology, in the setting of acute rhinoviral/enteroviral LLL CAP. R/O gram negative narciso-associated bacteremia. R/O right gluteal wound infection. 2. Acute toxic metabolic encephalopathy, most likely due to severe sepsis. 3. Acute traumatic rhabdomyolysis with admission creatinine CK 4,836 U/L (09/05/2024, 9:50am). 4. Acute kidney injury with admission creatinine creatinine 1.98, GFR 32.3 mL/min (09/05/2024, 9:50am). 5. Acute hypovolemic hyponatremia with admission Na 134 mmol/L (09/05/2024, 9:50am). 6. Acute lactic acid elevation with admission lactic acid #1 2.4 mmol/L (09/05/2024, 9:50am). 7. Acute ambulatory dysfunction, superimposed on chronic ambulatory dysfunction utilizing walker at home alone. 8. Acute type II NSTEMI with admission troponin-I #1 37.8 pg/mL (, 9:50am). To address #1, patient was started on ceftriaxone 2g IV x 1 dose (09/05/2024, 11:58am) in [facility] ER bed #C10. Patient will continue with ceftriaxone 2g IV daily x 6 doses (starting on 09/06/2024, 9:00am) in [facility] PCU bed #E208-1. I will check vitals, chest exam, WBC w/diff, lactic acid, procalcitonin, blood culture #1 (09/05/2024, 11:37am), and blood culture #2 (09/05/2024, 11:47am) in the 09/06/2024 am. Of note, patient does not appear to be in any respiratory distress and in fact, maintains a resting RR 16, O2 sat 99% on room air (09/05/2024, 9:40am). To address #2, patient was started on ceftriaxone 2g IV x 1 dose (09/05/2024, 11:58am) in [facility] ER bed #C10. Patient will continue with ceftriaxone 2g IV daily x 6 doses (starting on 09/06/2024, 9:00am) in [facility] PCU bed #E208-1. I will check vitals, neuro exam, WBC w/diff, lactic acid, procalcitonin, blood culture #1 (09/05/2024, 11:37am), and blood culture #2 (09/05/2024, 11:47am) in the 09/06/2024 am. To address #3, patient was started on 2 liters of 0.9% NS @ 999 mL/hr (09/05/2024, 11:28am) in [facility] ER bed #C10. Patient will continue with 1 liter of 0.9% NS @ 61 mL/hr (09/05/2024, 6:41pm), based on a delivery rate of 1 mL of 0.9% NS per kg of body weight per hour, and a [facility] 60[facility]6 [facility] I will check repeat CK level in the 09/06/2024 am. To address #4, patient was started on 2 liters of 0.9% NS @ 999 mL/hr (09/05/2024, 11:28am) in [facility] ER bed #C10. Patient will continue with 1 liter of 0.9% NS @ 61 mL/hr (09/05/2024, 6:41pm), based on a delivery rate of 1 mL of 0.9% NS per kg of body weight per hour, and a body weight of 60.6 kg, [facility]. I will check repeat creatinine level in the 09/06/2024 am. To address #5, patient was started on 2 liters of 0.9% NS @ 999 mL/hr (09/05/2024, 11:28am) in [facility] ER bed #C10. Patient will continue with 1 liter of 0.9% NS @ 61 mL/hr (09/05/2024, 6:41pm), based on a delivery rate of 1 mL of 0.9% NS per kg of body weight per hour, and a body weight of 60.6 kg, [facility]. I will check repeat Na level in the 09/06/2024 am. To address #6, patient was started on 2 liters of 0.9% NS @ 999 mL/hr (09/05/2024, 11:28am) in [facility] ER bed #C10. Patient will continue with 1 liter of 0.9% NS @ 61 mL/hr (09/05/2024, 6:41pm), based on a delivery rate of 1 mL of 0.9% NS per kg of body weight per hour, and a body weight of 60.6 kg, in [facility] PCU bed #E208-1. I will check repeat lactic acid level in the 09/06/2024 am. To address #7, patient awaits PT/OT Service evaluations in the 09/06/2024 am, to determine if patient is safe for D/C back to his home alone, or if patient may benefit from D/C to SNF for short-term rehab. To address #8, patient continues to be monitored on telemetry and will undergo serial troponin level trending to observe peak troponin level. No further testing is warranted as acute type II NSTEMI with nominal troponin elevation is attributed to demand ischemia, which in turn, is due to severe sepsis, without septic shock, of unclear etiology, in the setting of acute rhinoviral/enteroviral LLL CAP. Allergies Allergy/AdvReac Type Severity Reaction Status Date / Time trazodone AdvReac Mild anxious, Verified 07/15/24 13:35 [email or web address] Home Medications Medication Instructions Recorded Confirmed Type menthol 2.5 % topical gel (BenGay 1 applic topical QID PRN pain 09/22/22 09/05/24 History Vanishing Scent) acetaminophen 650 mg 650 mg PO Q12H PRN Pain 02/17/23 09/05/24 History tablet,extended release (Tylenol Arthritis Pain) hydrocortisone 1 % topical cream 1 applic topical BID PRN Itching 02/17/23 09/05/24 History (Cortizone-10) polyethylene glycol 3350 17 17 g PO DAILY PRN Constipation 02/17/23 09/05/24 History gram/dose oral powder (Miralax) Past Med/Surg History Problem List (Updated 09/05/24 @ 18:52 by Jay Christian MD, PhD) Demand ischemia Ambulatory dysfunction Lactic acid blood increased Acute hyponatremia Acute kidney failure Traumatic rhabdomyolysis Toxic metabolic encephalopathy Sepsis Enterovirus infection (Acute) Rhinovirus infection (Acute) Elevated lactic acid level (Acute) Elevated procalcitonin (Acute) Elevated CK (Acute) Elevated troponin (Acute) Generalized weakness (Acute) Leukocytosis (Acute) ALYSON (acute kidney injury) (Acute) Rhabdomyolysis (Acute) Sepsis (Acute) 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 BP stable recently. Medical History Borderline high blood pressure no meds Arthritis Hx of bladder cancer Chronic anemia Hx of duodenal ulcer Hearing loss Surgical History History of cystoscopy History of total hip arthroplasty left H/O transurethral resection of prostate H/O eye surgery "flap repair in left eye" History of cataract surgery right/left History of esophageal dilatation History of esophagogastroduodenoscopy (EGD) History of colonoscopy S/P tooth extraction S/P bladder tumor excision with fulguration 10/2019 Family History Brother Cancer Throat Brother Cancer stomach Father , at unknown age from unknown cause. No problems noted. Mother , at unknown age from unknown cause. No problems noted. Other No family history of adverse response to anesthesia Denies family history of Ovarian cancer Prostate cancer Myocardial infarction Breast cancer Colorectal cancer Social History Smoking Status: Former smoker Tobacco Type: Cigarettes Age Started Using Tobacco: 14; Age Quit Using Tobacco: 24; packs per day: 1; Cigarettes Per Day: 15-20; Second Hand Exposure: No; Do You Dip or Chew Tobacco: No; Tobacco Cessation Education Requested by Patient: No Hx Alcohol Use: No Hx Substance Use: No Preferred Language: Lebanese Communication Ability: Impaired Communication Ability Comment: confusion Visual Impairment: Limited Hearing Ability: Use of Hearing Aid Head Inspector Required: No Beliefs That Will Affect Care: None marital status: / Current Living Situation: Alone Current Living Situation Comment: living in an apt. by himself; granddaughter next door current occupational status: retired How many Children do You have: 2 Other Information That Helps Us Care for You: No Feels Safe at Home: Yes Safety Concerns: Feels Safe At This Time Childhood Exposure to Second-Hand Smoke: Yes Diet: regular caffeine: Yes during the past year weight has: remained stable Dental Care, Regularly: No Physical Activity Frequency: Daily Physical Activity Frequency Comment: walking Seatbelt Use: always Sunscreen Use: Yes Do you think of yourself as: straight/heterosexual Sexual Activity: has been sexually active, but not for at least 12 months Gender Identity: Male Assistive Devices: Cane Review of Systems Constitutional: Unknown as patient is lethargic, obtunded, and non-verbal. Physical Exam Constitutional: General: Comfortable, lethargic, obtunded, and non-verbal. HEENT: Normocephalic, atraumatic. Pupils equally round and reactive to light. No nystagmus, gaze paresis, anisocoria, miosis, mydriasis, hyphema, scleral injection, conjunctivitis, or pterygium. No otorrhea. No pharyngeal erythema, edema, or discharge. Neck: Supple, no stridor, bruit, goiter, or hepato-jugular reflux. Jugular venous pressure is estimated to be 3 cm above the sternal angle of Dandre, which in turn, is 5 cm above the level of the right atrium; with jugular venous pressure estimated to be 8 cm, then, there is no jugular venous distention on 09/05/2024. Lymphatics: No cervical (anterior/posterior), supraclavicular, infraclavicular, axillary, epitrochlear, or inguinal adenopathy. Chest: Symmetric rise and fall with respirations. Non-tender to palpation. Lungs: Clear to auscultation and percussion. No audible expiratory wheeze, egophony, pectoriloquy, increase in tactile fremitus, or flatness/dullness to percussion at the bases. Heart: RRR. S1 and S2 noted. No S3 or S4 summation gallop. No tripartite friction rub. Grade II/ early systolic murmur @ LLSB without radiation to the carotids, axilla, or back, and which remains invariant in regards to the respiratory cycle. Abdomen: Soft, non-tender, non-distended. No rebound, guarding, Selby's sign, or organomegaly. Bowel sounds auscultated in all 4 quadrants. Extremities: No clubbing, cyanosis, or edema in upper extremities or lower extremities bilaterally. 2+ pedal pulses bilaterally. Skin: Stage II right gluteal ulcer (of 1 week duration as per patient's granddaughter), ~10 cm diameter, solitary lesion, with surrounding erythema, but no edema, induration, warmth, tenderness, crepitus, fluctuance (sanguineous, serous, suppurative), malodor, or lymphangitic streaking. No exanthem or enanthem. Genito-urinary: No urethral discharge. No ross catheter. Neurology: No myoclonus, tremors, or tics. Psychiatry: No homicidal ideation. No suicidal ideation. No flat affect; smiles appropriately. Results & Data Results & Data Vital Signs (Past 12 Hours) Vital Signs Temp Pulse Pulse Resp BP BP Pulse Ox 09/05/24 16:50 83 09/05/24 15:51 09/05/24 15:36 36.6 C 82 117/62 97 09/05/24 15:00 80 13 124/65 09/05/24 14:39 84 22 127/62 09/05/24 14:06 84 15 09/05/24 14:00 125/59 L 09/05/24 14:00 125/59 L 09/05/24 13:54 89 20 09/05/24 13:27 90 15 140/66 91 09/05/24 13:00 139/72 09/05/24 12:30 94 H 16 158/76 H 93 09/05/24 12:09 95 H 16 160/73 H 95 09/05/24 12:08 95 H 20 160/73 H 95 09/05/24 10:11 82 09/05/24 09:40 36.7 C 83 16 125/61 99 O2 Del Method 09/05/24 16:50 09/05/24 15:51 Room Air 09/05/24 15:36 Room Air 09/05/24 15:00 09/05/24 14:39 09/05/24 14:06 09/05/24 14:00 09/05/24 14:00 09/05/24 13:54 09/05/24 13:27 09/05/24 13:00 09/05/24 12:30 09/05/24 12:09 09/05/24 12:08 Room Air 09/05/24 10:11 09/05/24 09:40 Room Air Laboratory Results As above in the History of Present Illness. Diagnostic Findings As above in the History of Present Illness. Medications Administered As above in the History of Present Illness. Code Status & VTE Plan Code Status DNR/DNI @ home alone. VTE Prophylaxis Plan VTE Prophylaxis will be ordered: Yes PG Care Time/CCT Total # of Minutes Spent Total Time Spent with Patient: Total time spent is greater than 50% in coordination of care (as documented) at patient's floor/unit and/or counseling patient: Coding Level of Care Code 42249 INT INP/OBS CARE 3/75MIN Diagnoses Sepsis A41.9 Toxic metabolic encephalopathy G92.8 Traumatic rhabdomyolysis T79.6XXA Acute kidney failure N17.9 Acute hyponatremia E87.1 Lactic acid blood increased R79.89 Ambulatory dysfunction R26.2 Demand ischemia I24.89
[2024-09-05] MEDS: SODIUM CHLORIDE 0.9% 1,000 ML IV ONE (18:53)
[2024-09-05] MEDS: HEPARIN SOD 5,000 UNIT/0.5 ML VIAL SQ SCH (20:12)
[2024-09-06 07:29] LABS: Anion Gap 8.0 (3-11); Bilirubin,Total 0.5 mg/dl (0.2-1.0); Calcium 8.0 mg/dl (8.6-10.3); Carbon Dioxide 21.0 mmol/L (21-32); Chloride 107.0 mmol/L (98-107); Potassium 3.5 mmol/L (3.5-5.1); Sodium 136.0 mmol/L (136-145)
[2024-09-06 07:33] LABS: Hematocrit (blood only) 24.0 % (42.0-52.0); Hemoglobin 7.5 g/dl (14.0-18.0); Mean Corpuscular Hemoglobin 36.4 pg (25.0-34.0); Mean Corpuscular Volume 116.5 fL (80.0-100.0); Platelet Count 107 K/uL (130-400); RDW Standard Deviation 73.9 fL (36.4-46.3); Red Blood Count 2.06 M/uL (4.70-6.10); White Blood Count 20.50 K/ul (4.8-10.8)
[2024-09-06 07:34] LABS: Immature Granulocytes # (auto) 0.36 K/uL (0.01-0.20); Immature Granulocytes % (auto) 1.8 %; Macrocytosis Present; Poikilocytosis Present; Polychromasia 1+
[2024-09-06 07:58] LABS: Alanine Aminotransferase 22.0 U/L (7-52); Albumin Globulin Ratio 1.0 (0.9-2); Alkaline Phosphatase 49.0 U/L (34-104); Blood Urea Nitrogen 38.0 mg/dl (6-23); Creatine Kinase 3431.0 U/L (30-223); Creatinine Clr Calc Pharmacy 30.3 ml/min; Globulin 3.2 gm/dl (2.5-4.0); Glucose 75.0 mg/dl (70-99(Fasting)); Total Protein 6.5 gm/dl (6.0-8.3)
[2024-09-06] MEDS: cefTRIAXone SODIUM 2,000 MG/50 ML BAG IV SCH (08:12)
--- NOTE | 2024-09-06 13:11 | Hospitalist Progress Note ---
Date of Service September 06, 2024 Assessment & Plan (1) Sepsis: Plan: To address Severe sepsis, without septic shock, of unclear etiology, in the setting of acute rhinoviral/enteroviral LLL CAP. R/O gram negative narciso- associated bacteremia. R/O right gluteal wound infection, patient received ceftriaxone 2g IV x 1 dose (09/05/2024, 11:58am) in [facility] ER bed #C10. Patient continues with ceftriaxone 2g IV daily x 6 doses (starting on 09/06/2024, 8:12am) in [facility] PCU bed #E208-1. I will check vitals, chest exam, WBC w/diff, lactic acid, procalcitonin, blood culture #1 (09/05/2024, 11:37am), and blood culture #2 (09/05/2024, 11:47am) in the 09/07/2024 am. Of note, patient does not appear to be in any respiratory distress and in fact, maintains a resting RR 16, O2 sat 99% on room air (09/05/2024, 9:40am) in [facility] ER bed #C10 and a resting RR 16, O2 sat 96% on room air (09/06/2024, 12:01pm) in [facility] PCU bed #E208-1. (2) Toxic metabolic encephalopathy: Plan: To address Acute toxic metabolic encephalopathy, most likely due to severe sepsis, patient received ceftriaxone 2g IV x 1 dose (09/05/2024, 11:58am) in [facility] ER bed #C10. Patient continues with ceftriaxone 2g IV daily x 6 doses (starting on 09/06/2024, 8:12am) in [facility] PCU bed #E208-1. I will check vitals, neuro exam, WBC w/diff, lactic acid, procalcitonin, blood culture #1 (09/05/2024, 11:37am), and blood culture #2 (09/05/2024, 11:47am) in the 09/07/2024 am. (3) Traumatic rhabdomyolysis: Plan: To address Acute traumatic rhabdomyolysis with admission creatinine CK 4,836 U/L (09/05/2024, 9:50am), patient received 2 liters of 0.9% NS @ 999 mL/hr (09/05/2024, 11:28am) in [facility] ER bed #C10. Patient received one 1 liter of 0.9% NS @ 61 mL/hr (09/05/2024, 6:41pm), based on a delivery rate of 1 mL of 0.9% NS per kg of body weight per hour, and a body weight of 60.6 kg, in [facility] PCU bed #E208-1. Acute traumatic rhabdomyolysis is RESOLVING with post-hydration CK 3,431 U/L (09/06/2024, 6:45am). I have opted to rehydrate patient with 1 liter of 0.9% NS @ 61 mL/hr (09/07/2024, 1:43pm). I will check repeat CK level in the 09/07/2024 am. (4) Acute kidney failure: Plan: To address Acute kidney injury with admission creatinine creatinine 1.98, GFR 32.3 mL/min (09/05/2024, 9:50am), patient received 2 liters of 0.9% NS @ 999 mL/hr (09/05/2024, 11:28am) in [facility] ER bed #C10. Patient received one 1 liter of 0.9% NS @ 61 mL/hr (09/05/2024, 6:41pm), based on a delivery rate of 1 mL of 0.9% NS per kg of body weight per hour, and a body weight of 60.6 kg, in [facility] PCU bed #E208-1. Acute kidney injury is RESOLVING with post-hydration creatinine 1.50 mg/dL, GFR 45.1 mL/min (09/06/2024, 6:45am). I have opted to rehydrate patient with 1 liter of 0.9% NS @ 61 mL/hr (09/07/2024, 1:43pm). I will check repeat creatinine level in the 09/07/2024 am. (5) Acute hyponatremia: Plan: To address Acute hypovolemic hyponatremia with admission Na 134 mmol/L (09/05/2024, 9:50am), patient received 2 liters of 0.9% NS @ 999 mL/hr (09/05/2024, 11:28am) in [facility] ER bed #C10. Patient received one 1 liter of 0.9% NS @ 61 mL/hr (09/05/2024, 6:41pm), based on a delivery rate of 1 mL of 0.9% NS per kg of body weight per hour, and a body weight of 60.6 kg, in [facility] PCU bed #E208-1. Acute kidney injury RESOLVED with post-hydration Na 136 mmol/L (09/06/2024, 6:45am). Nonetheless, as patient's lactic acid level is elevated at 2.5 mmol/L (09/06/2024, 1:22pm), which implies that patient is still dehydrated, despite resolution of acute hypovolemic hyponatremia, I have opted to rehydrate patient with 1 liter of 0.9% NS @ 61 mL/hr (09/07/2024, 1:43pm). I will check repeat Na level in the 09/07/2024 am. (6) Lactic acid blood increased: Plan: To address Acute lactic acid elevation with admission lactic acid #1 2.4 mmol/L (09/05/2024, 9:50am), patient received 2 liters of 0.9% NS @ 999 mL/hr (09/05/2024, 11:28am) in [facility] ER bed #C10. Patient received one 1 liter of 0.9% NS @ 61 mL/hr (09/05/2024, 6:41pm), based on a delivery rate of 1 mL of 0.9% NS per kg of body weight per hour, and a body weight of 60.6 kg, in [facility] PCU bed #E208-1. Acute lactic acid elevations PERSISTS with post-hydration lactic acid remaining elevated at 2.5 mmol/L (09/06/2024, 1:22pm). Hence, as patient's lactic acid level remains elevated at 2.5 mmol/L (09/06/2024, 1:22pm), which implies that patient is still dehydrated, despite resolution of acute hypovolemic hyponatremia, I have opted to rehydrate patient with 1 liter of 0.9% NS @ 61 mL/hr (09/07/2024, 1:43pm). I will check repeat lactic acid level on 09/06/2024, 5:22pm and again on 09/07/2024, 6:00am. (7) Ambulatory dysfunction: Plan: To address Acute ambulatory dysfunction, superimposed on chronic ambulatory dysfunction utilizing walker at home alone, patient awaits PT/OT Service evaluations in the 09/07/2024 am, to determine if patient is safe for D/C back to his home alone, or if patient may benefit from D/C to SNF for short-term rehab. (8) Demand ischemia: Plan: To address Acute type II NSTEMI with admission troponin-I #1 37.8 pg/mL (, 9:50am), patient continues to be monitored on telemetry and underwent serial troponin level trending to observe peak troponin level. No further testing is warranted as acute type II NSTEMI with nominal troponin elevation is attributed to demand ischemia, which in turn, is due to severe sepsis, without septic shock, of unclear etiology, in the setting of acute rhinoviral/enteroviral LLL CAP. cf., Troponin-I #1 37.8 pg/mL (, 9:50am). cf., Troponin-I #2 38.5 pg/mL (09/05/2024, 11:47am). cf., Troponin-I #3 69.2 pg/mL (09/05/2024, 2:13pm). cf., Troponin-I #4 330.3 pg/mL (09/05/2024, 7:05pm) cf., Troponin-I #5 296.8 pg/mL (09/06/2024, 6:45am). cf., EKG (09/05/2024, 9:49am): NSR @ 85, NH 200, QTC 476, no acute ST depressions/elevations (by my review). Admission and Anticipated Discharge Date Admission Date: September 05, 2024 Subjective Unknown as patient is lethargic, obtunded, and non-verbal on 09/06/2024. Review of Systems Constitutional: Unknown as patient is lethargic, obtunded, and non-verbal on 09/06/2024. Physical Exam Constitutional: General: Comfortable, lethargic, obtunded, and non-verbal on 09/06/2024. HEENT: Normocephalic, atraumatic. Pupils equally round and reactive to light. No nystagmus, gaze paresis, anisocoria, miosis, mydriasis, hyphema, scleral injection, conjunctivitis, or pterygium. No otorrhea. No pharyngeal erythema, edema, or discharge. Neck: Supple, no stridor, bruit, goiter, or hepato-jugular reflux. Jugular venous pressure is estimated to be 3 cm above the sternal angle of Dandre, which in turn, is 5 cm above the level of the right atrium; with jugular venous pressure estimated to be 8 cm, then, there is no jugular venous distention on 09/06/2024. Lymphatics: No cervical (anterior/posterior), supraclavicular, infraclavicular, axillary, epitrochlear, or inguinal adenopathy. Chest: Symmetric rise and fall with respirations. Non-tender to palpation. Lungs: Clear to auscultation and percussion. No audible expiratory wheeze, egophony, pectoriloquy, increase in tactile fremitus, or flatness/dullness to percussion at the bases. Heart: RRR. S1 and S2 noted. No S3 or S4 summation gallop. No tripartite friction rub. Grade II/ early systolic murmur @ LLSB without radiation to the carotids, axilla, or back, and which remains invariant in regards to the respiratory cycle. Abdomen: Soft, non-tender, non-distended. No rebound, guarding, Selby's sign, or organomegaly. Bowel sounds auscultated in all 4 quadrants. Extremities: No clubbing, cyanosis, or edema in upper extremities or lower extremities bilaterally. 2+ pedal pulses bilaterally. Skin: Stage II right gluteal ulcer (of 1 week duration as per patient's granddaughter), ~10 cm diameter, solitary lesion, with surrounding erythema, but no edema, induration, warmth, tenderness, crepitus, fluctuance (sanguineous, serous, suppurative), malodor, or lymphangitic streaking. No exanthem or enanthem. Genito-urinary: No urethral discharge. No ross catheter. Neurology: No myoclonus, tremors, or tics. Psychiatry: No homicidal ideation. No suicidal ideation. No flat affect; smiles appropriately. Results & Data Results & Data Vital Signs (Past 12 Hours) Vital Signs Temp Pulse Resp BP BP Pulse Ox O2 Del Method 09/06/24 12:01 36.8 C 72 16 117/58 L 96 Room Air 09/06/24 11:32 92 09/06/24 08:00 Room Air 09/06/24 07:39 36.9 C 76 16 128/61 95 Room Air 09/06/24 02:49 36.9 C 84 16 135/68 94 Room Air Laboratory Results WBC 29.95, N84 L1 M13, Hb 8.2, MCV 114.9, MCHC 31.3, platelet 137 (09/05/2024, 9:50am). WBC 20.50, N85 L2 M11, Hb 7.5, MCV 116.5, MCHC 31.3, platelet 107 (09/06/2024, 6:45am). CK 4,836 U/L (09/05/2024, 9:50am). CK 3,431 U/L (09/06/2024, 6:45am). Na 134, K 4.3, BUN 45, creatinine 1.98, GFR 32.3, glucose 106, Ca 8.7, Mg 2.4 (09/05/2024, 9:50am). Na 136, K 3.5, BUN 38, creatinine 1.50, GFR 45.1, glucose 75, Ca 8.0 (09/06/2024, 6:45am). AST 80, ALT 17, ALK PHOS 57, TBili 1.0 (09/05/2024, 9:50am). AST 94, ALT 22, ALK PHOS 49, TBili 0.5 (09/06/2024, 6:45am). Lactic acid #1 2.4 mmol/L (09/05/2024, 9:50am). Lactic acid #2 1.4 mmol/L (09/05/2024, 1:33pm). Lactic acid #3 1.3 mmol/L (09/05/2024, 2:13pm). Lactic acid #4 2.5 mmol/L (09/06/2024, 1:22pm). Procalcitonin #1 1.92 ng/mL (09/05/2024, 9:50am). Procalcitonin #2 1.21 ng/mL (09/06/2024, 6:45am). MRSA nares PCR negative (09/05/2024, 2:00pm). BIOFIRE respiratory PCR panel (09/05/2024, 10:16am): Rhinovirus+/enterovirus+ U/A (09/05/2024, 11:19am): cloudy yellow, blood 3+ with RBC > 20, LE trace, nitrite-, WBC 0-5, bacteria 0, epithelial cells 0 Blood culture #1 (09/05/2024, 11:37am): Blood culture #2 (09/05/2024, 11:47am): TSH 1.863 uIU/mL (09/05/2024, 9:50am). INR 1.1 (09/05/2024, 9:50am). Troponin-I #1 37.8 pg/mL (, 9:50am). Troponin-I #2 38.5 pg/mL (09/05/2024, 11:47am). Troponin-I #3 69.2 pg/mL (09/05/2024, 2:13pm). Troponin-I #4 330.3 pg/mL (09/05/2024, 7:05pm) Troponin-I #5 296.8 pg/mL (09/06/2024, 6:45am). Diagnostic Findings Portable CXR (09/05/2024, 10:01am): LLL infiltrate. No effusion, cardiomegaly, pulmonary vascular congestion, or pneumothorax (by my review). CT brain without contrast (09/05/2024, 10:01am): No acute bleed, mass, or midline shift. Left hip x-ray (09/05/2024, 10:01am): Left hip prosthesis shows no hardware complication. No fracture or dislocation. There are moderate degenerative changes at the right hip and lower lumbar spine. PG Care Time/CCT Total # of Minutes Spent Total Time Spent with Patient: Total time spent is greater than 50% in coordination of care (as documented) at patient's floor/unit and/or counseling patient: Coding Level of Care Code 19433 SUB INP/OBS CARE 3/50MIN Diagnoses Sepsis A41.9 Toxic metabolic encephalopathy G92.8 Traumatic rhabdomyolysis T79.6XXA Acute kidney failure N17.9 Acute hyponatremia E87.1 Lactic acid blood increased R79.89 Ambulatory dysfunction R26.2 Demand ischemia I24.89
[2024-09-06] MEDS: SODIUM CHLORIDE 0.9% 1,000 ML IV ONE (13:43)
[2024-09-06] MEDS: ACETAMINOPHEN 325 MG TAB PO PRN (20:38)
[2024-09-07 07:13] LABS: Alanine Aminotransferase 22.0 U/L (7-52); Albumin Globulin Ratio 1.0 (0.9-2); Alkaline Phosphatase 45.0 U/L (34-104); Anion Gap 7.0 (3-11); Bilirubin,Total 0.4 mg/dl (0.2-1.0); Blood Urea Nitrogen 35.0 mg/dl (6-23); Calcium 8.0 mg/dl (8.6-10.3); Carbon Dioxide 23.0 mmol/L (21-32); Chloride 108.0 mmol/L (98-107); Creatine Kinase 1607.0 U/L (30-223); Creatinine Clr Calc Pharmacy 30.5 ml/min; Globulin 3.1 gm/dl (2.5-4.0); Glucose 94.0 mg/dl (70-99(Fasting)); Potassium 3.8 mmol/L (3.5-5.1); Sodium 138.0 mmol/L (136-145); Total Protein 6.2 gm/dl (6.0-8.3)
[2024-09-07 08:13] LABS: Hematocrit (blood only) 22.9 % (42.0-52.0); Hemoglobin 7.0 g/dl (14.0-18.0); Immature Granulocytes # (auto) 0.19 K/uL (0.01-0.20); Immature Granulocytes % (auto) 1.3 %; Macrocytosis Present; Mean Corpuscular Hemoglobin 36.1 pg (25.0-34.0); Mean Corpuscular Volume 118.0 fL (80.0-100.0); Platelet Count 98 K/uL (130-400); Polychromasia 2+; RDW Standard Deviation 74.5 fL (36.4-46.3); Red Blood Count 1.94 M/uL (4.70-6.10); White Blood Count 14.39 K/ul (4.8-10.8)
--- NOTE | 2024-09-07 21:30 | Hospitalist Progress Note ---
Date of Service September 07, 2024 Assessment & Plan (1) Sepsis: Plan: To address Severe sepsis, without septic shock, of unclear etiology, in the setting of acute rhinoviral/enteroviral LLL CAP. R/O gram negative naricso- associated bacteremia. R/O right gluteal wound infection, patient received ceftriaxone 2g IV x 1 dose (09/05/2024, 11:58am) in [facility] ER bed #C10. Patient continues with ceftriaxone 2g IV daily x 6 doses (starting on 09/06/2024, 8:12am) in [facility] PCU bed #E208-1. I will check vitals, chest exam, WBC w/diff, lactic acid, procalcitonin, blood culture #1 (09/05/2024, 11:37am), and blood culture #2 (09/05/2024, 11:47am) in the 09/07/2024 am. Of note, patient does not appear to be in any respiratory distress and in fact, maintains a resting RR 16, O2 sat 99% on room air (09/05/2024, 9:40am) in [facility] ER bed #C10 and a resting RR 17, O2 sat 94% on room air (09/07/2024, 8:20pm) in [facility] PCU bed #E208-1. (2) Toxic metabolic encephalopathy: Plan: To address Acute toxic metabolic encephalopathy, most likely due to severe sepsis, patient received ceftriaxone 2g IV x 1 dose (09/05/2024, 11:58am) in [facility] ER bed #C10. Patient continues with ceftriaxone 2g IV daily x 6 doses (starting on 09/06/2024, 8:12am) in [facility] PCU bed #E208-1. I will check vitals, neuro exam, WBC w/diff, lactic acid, procalcitonin, blood culture #1 (09/05/2024, 11:37am), and blood culture #2 (09/05/2024, 11:47am) in the 09/08/2024 am. (3) Traumatic rhabdomyolysis: Plan: To address Acute traumatic rhabdomyolysis with admission creatinine CK 4,836 U/L (09/05/2024, 9:50am), patient received 2 liters of 0.9% NS @ 999 mL/hr (09/05/2024, 11:28am) in [facility] ER bed #C10. Patient received one 1 liter of 0.9% NS @ 61 mL/hr (09/05/2024, 6:41pm), based on a delivery rate of 1 mL of 0.9% NS per kg of body weight per hour, and a body weight of 60.6 kg, in [facility] PCU bed #E208-1. Acute traumatic rhabdomyolysis is RESOLVING with post-hydration CK 3,431 U/L (09/06/2024, 6:45am). Patient subsequently received 1 liter of 0.9% NS @ 61 mL/hr (09/06/2024, 1:43pm). Acute traumatic rhabdomyolysis is RESOLVING with post-hydration CK 1,607 U/L (09/07/2024, 6:15am). I have subsequently ordered 1 liter of 0.9% NS @ 61 mL/hr (09/07/2024, 9:31pm). I will check repeat CK level in the 09/08/2024 am. (4) Acute kidney failure: Plan: To address Acute kidney injury with admission creatinine creatinine 1.98, GFR 32.3 mL/min (09/05/2024, 9:50am), patient received 2 liters of 0.9% NS @ 999 mL/hr (09/05/2024, 11:28am) in [facility] ER bed #C10. Patient received one 1 liter of 0.9% NS @ 61 mL/hr (09/05/2024, 6:41pm), based on a delivery rate of 1 mL of 0.9% NS per kg of body weight per hour, and a body [facility] 60[facility]6 [facility] Acute kidney injury is RESOLVING with post-hydration creatinine 1.50 mg/dL, GFR 45.1 mL/min (09/06/2024, 6:45am). Patient subsquently received 1 liter of 0.9% NS @ 61 mL/hr (09/06/2024, 1:43pm). Acute kidney injury is RESOLVING with post- hydration creatinine 1.49 mg/dL, GFR 45.4 mL/min (09/07/2024, 6:15am). I have subsequently ordered 1 liter of 0.9% NS @ 61 mL/hr (09/07/2024, 9:31pm). I will check repeat creatinine level in the 09/08/2024 am. (5) Acute hyponatremia: Plan: To address Acute hypovolemic hyponatremia with admission Na 134 mmol/L (09/05/2024, 9:50am), patient received 2 liters of 0.9% NS @ 999 mL/hr (09/05/2024, 11:28am) in [facility] ER bed #C10. Patient received one 1 liter of 0.9% NS @ 61 mL/hr (09/05/2024, 6:41pm), based on a delivery rate of 1 mL of 0.9% NS per kg of body weight per hour, and a body weight of 60.6 kg, in [facility] PCU bed #E208-1. Acute hypovolemic hyponatremia RESOLVED with post-hydration Na 136 mmol/L (09/06/2024, 6:45am). Nonetheless, as patient's lactic acid level was elevated at 2.5 mmol/L (09/06/2024, 1:22pm), which implies that patient is still dehydrated, despite resolution of acute hypovolemic hyponatremia, I opted to rehydrate patient with 1 liter of 0.9% NS @ 61 mL/hr (09/07/2024, 1:43pm). Patient's Na level remains normal at 138 mmol/L (09/07/2024, 6:15am). Patient remains clinically dehydrated with dry skin and skin tenting, but no capillary refill time > 2 seconds on 09/07/2024. Hence, I have subsequently ordered 1 liter of 0.9% NS @ 61 mL/hr (09/07/2024, 9:31pm). I will check repeat Na level in the 09/08/2024 am. (6) Lactic acid blood increased: Plan: To address Acute lactic acid elevation with admission lactic acid #1 2.4 mmol/L (09/05/2024, 9:50am), patient received 2 liters of 0.9% NS @ 999 mL/hr (09/05/2024, 11:28am) in [facility] ER bed #C10. Patient received one 1 liter of 0.9% NS @ 61 mL/hr (09/05/2024, 6:41pm), based on a delivery rate of 1 mL of 0.9% NS per kg of body weight per hour, and a body weight of 60.6 kg, in [facility] PCU bed #E208-1. Acute lactic acid elevations PERSISTED with post-hydration lactic acid remaining elevated at 2.5 mmol/L (09/06/2024, 1:22pm). Hence, as patient's lactic acid level remained elevated at 2.5 mmol/L (09/06/2024, 1:22pm), which implies that patient is still dehydrated, despite resolution of acute hypovolemic hyponatremia, patient received 1 liter of 0.9% NS @ 61 mL/hr (09/07/2024, 1:43pm). Patient's lactic acid remained elevated at 2.7 mmol/L (09/06/2024, 6:18pm), before falling back to normal at 1.0 mmol/L (09/07/2024, 6:15am). Patient remains clinically dehydrated with dry skin and skin tenting, but no capillary refill time > 2 seconds on 09/07/2024. Hence, I have subsequently ordered 1 liter of 0.9% NS @ 61 mL/hr (09/07/2024, 9:31pm). I will check repeat lactic acid level in the 09/08/2024 am. (7) Ambulatory dysfunction: Plan: To address Acute ambulatory dysfunction, superimposed on chronic ambulatory dysfunction utilizing walker at home alone, patient awaits PT/OT Service evaluations in the 09/07/2024 am, to determine if patient is safe for D/C back to his home alone, or if patient may benefit from D/C to SNF for short-term rehab. (8) Demand ischemia: Plan: To address Acute type II NSTEMI with admission troponin-I #1 37.8 pg/mL (, 9:50am), patient continues to be monitored on telemetry and underwent serial troponin level trending to observe peak troponin level. No further testing is warranted as acute type II NSTEMI with nominal troponin elevation is attributed to demand ischemia, which in turn, is due to severe sepsis, without septic shock, of unclear etiology, in the setting of acute rhinoviral/enteroviral LLL CAP. cf., Troponin-I #1 37.8 pg/mL (, 9:50am). cf., Troponin-I #2 38.5 pg/mL (09/05/2024, 11:47am). cf., Troponin-I #3 69.2 pg/mL (09/05/2024, 2:13pm). cf., Troponin-I #4 330.3 pg/mL (09/05/2024, 7:05pm) cf., Troponin-I #5 296.8 pg/mL (09/06/2024, 6:45am). cf., EKG (09/05/2024, 9:49am): NSR @ 85, NJ 200, QTC 476, no acute ST depressions/elevations (by my review). Admission and Anticipated Discharge Date Admission Date: September 05, 2024 Subjective "I'm back. I feel 80% better than when I came in. Wow! I was very sick. What happened to me?" Review of Systems Constitutional: Negative for antecedent/coincident fevers, chills, diaphoresis, cough, wheeze, sore throat, hemoptysis, chest pains, palpitations, pleurisy, nausea, vomiting, diarrhea, abdominal pain, pelvic pain, hematemesis, hematochezia, melena, hematuria, dysuria, frequency, urgency, headaches, dizziness, lightheadedness, visual changes, hearing changes, weakness, falls, syncope, trauma, travel history, sick contacts, or food/drug ingestions novel or new. All other review of systems are reported as negative by the patient on 09/07/2024. Physical Exam Constitutional: General: Comfortable, cooperative, coherent. Wide awake and alert. Not confused, lethargic, or obtunded. Patient speaks in complete, fluent, and articulate sentences without pause, interruption, cough, or wheeze. HEENT: Normocephalic, atraumatic. Pupils equally round and reactive to light. No nystagmus, gaze paresis, anisocoria, miosis, mydriasis, hyphema, scleral injection, conjunctivitis, or pterygium. No otorrhea. No pharyngeal erythema, edema, or discharge. Neck: Supple, no stridor, bruit, goiter, or hepato-jugular reflux. Jugular venous pressure is estimated to be 3 cm above the sternal angle of Dandre, which in turn, is 5 cm above the level of the right atrium; with jugular venous pressure estimated to be 8 cm, then, there is no jugular venous distention on 09/08/2024. Lymphatics: No cervical (anterior/posterior), supraclavicular, infraclavicular, axillary, epitrochlear, or inguinal adenopathy. Chest: Symmetric rise and fall with respirations. Non-tender to palpation. Lungs: Clear to auscultation and percussion. No audible expiratory wheeze, egophony, pectoriloquy, increase in tactile fremitus, or flatness/dullness to percussion at the bases. Heart: RRR. S1 and S2 noted. No S3 or S4 summation gallop. No tripartite friction rub. Grade II/ early systolic murmur @ LLSB without radiation to the carotids, axilla, or back, and which remains invariant in regards to the respiratory cycle. Abdomen: Soft, non-tender, non-distended. No rebound, guarding, Selby's sign, or organomegaly. Bowel sounds auscultated in all 4 quadrants. Extremities: No clubbing, cyanosis, or edema in upper extremities or lower extremities bilaterally. 2+ pedal pulses bilaterally. Skin: Stage II right gluteal ulcer (of 1 week duration as per patient's granddaughter), ~10 cm diameter, solitary lesion, with surrounding erythema, but no edema, induration, warmth, tenderness, crepitus, fluctuance (sanguineous, serous, suppurative), malodor, or lymphangitic streaking. No exanthem or enanthem. Genito-urinary: No urethral discharge. No ross catheter. Neurology: No myoclonus, tremors, or tics. Psychiatry: No homicidal ideation. No suicidal ideation. No flat affect; smiles appropriately. Results & Data Results & Data Vital Signs (Past 12 Hours) Vital Signs Temp Pulse Pulse Resp BP Pulse Ox O2 Del Method 09/07/24 20:20 37.4 C 79 17 164/73 H 94 Room Air 09/07/24 16:05 36.8 C 72 18 163/65 H 95 Room Air 09/07/24 13:05 62 09/07/24 11:30 36.5 C 73 18 144/66 H 96 Room Air Laboratory Results WBC 29.95, N84 L1 M13, Hb 8.2, MCV 114.9, MCHC 31.3, platelet 137 (09/05/2024, 9:50am). WBC 20.50, N85 L2 M11, Hb 7.5, MCV 116.5, MCHC 31.3, platelet 107 (09/06/2024, 6:45am). WBC 14.39, N81 L3 M15, Hb 7.0, MCV 118.0, MCHC 30.6, platelet 98 (09/07/2024, 6:54am). CK 4,836 U/L (09/05/2024, 9:50am). CK 3,431 U/L (09/06/2024, 6:45am). CK 1,607 U/L (09/07/2024, 6:15am). Na 134, K 4.3, BUN 45, creatinine 1.98, GFR 32.3, glucose 106, Ca 8.7, Mg 2.4 (09/05/2024, 9:50am). Na 136, K 3.5, BUN 38, creatinine 1.50, GFR 45.1, glucose 75, Ca 8.0 (09/06/2024, 6:45am). Na 138, K 3.8, BUN 35, creatinine 1.49, GFR 45.4, glucose 94, Ca 8.0 (09/07/2024, 6:54am). AST 80, ALT 17, ALK PHOS 57, TBili 1.0 (09/05/2024, 9:50am). AST 94, ALT 22, ALK PHOS 49, TBili 0.5 (09/06/2024, 6:45am). AST 70, ALT 22, ALK PHOS 45, TBili 0.4 (09/07/2024, 6:54am). Lactic acid #1 2.4 mmol/L (09/05/2024, 9:50am). Lactic acid #2 1.4 mmol/L (09/05/2024, 1:33pm). Lactic acid #3 1.3 mmol/L (09/05/2024, 2:13pm). Lactic acid #4 2.5 mmol/L (09/06/2024, 1:22pm). Lactic acid #5 2.7 mmol/L (09/06/2024, 6:18pm). Lactic acid #6 1.0 mmol/L (09/07/2024, 6:15am). Procalcitonin #1 1.92 ng/mL (09/05/2024, 9:50am). Procalcitonin #2 1.21 ng/mL (09/06/2024, 6:45am). Procalcitonin #3 0.83 ng/mL (09/07/2024, 6:15am). MRSA nares PCR negative (09/05/2024, 2:00pm). BIOFIRE respiratory PCR panel (09/05/2024, 10:16am): Rhinovirus+/enterovirus+ U/A (09/05/2024, 11:19am): cloudy yellow, blood 3+ with RBC > 20, LE trace, nitrite-, WBC 0-5, bacteria 0, epithelial cells 0 Blood culture #1 (09/05/2024, 11:37am): Blood culture #2 (09/05/2024, 11:47am): TSH 1.863 uIU/mL (09/05/2024, 9:50am). INR 1.1 (09/05/2024, 9:50am). Troponin-I #1 37.8 pg/mL (, 9:50am). Troponin-I #2 38.5 pg/mL (09/05/2024, 11:47am). Troponin-I #3 69.2 pg/mL (09/05/2024, 2:13pm). Troponin-I #4 330.3 pg/mL (09/05/2024, 7:05pm) Troponin-I #5 296.8 pg/mL (09/06/2024, 6:45am). Diagnostic Findings Portable CXR (09/05/2024, 10:01am): LLL infiltrate. No effusion, cardiomegaly, pulmonary vascular congestion, or pneumothorax (by my review). CT brain without contrast (09/05/2024, 10:01am): No acute bleed, mass, or midline shift. Left hip x-ray (09/05/2024, 10:01am): Left hip prosthesis shows no hardware complication. No fracture or dislocation. There are moderate degenerativ PG Care Time/CCT Total # of Minutes Spent Total Time Spent with Patient: Total time spent is greater than 50% in coordination of care (as documented) at patient's floor/unit and/or counseling patient: Coding Level of Care Code 54282 SUB INP/OBS CARE 3/50MIN Diagnoses Sepsis A41.9 Toxic metabolic encephalopathy G92.8 Traumatic rhabdomyolysis T79.6XXA Acute kidney failure N17.9 Acute hyponatremia E87.1 Lactic acid blood increased R79.89 Ambulatory dysfunction R26.2 Demand ischemia I24.89
[2024-09-07] MEDS: SODIUM CHLORIDE 0.9% 1,000 ML IV ONE (22:05)
[2024-09-08 06:58] LABS: Anion Gap 6.0 (3-11); Blood Urea Nitrogen 27.0 mg/dl (6-23); Calcium 8.3 mg/dl (8.6-10.3); Carbon Dioxide 25.0 mmol/L (21-32); Chloride 105.0 mmol/L (98-107); Creatine Kinase 1221.0 U/L (30-223); Creatinine Clr Calc Pharmacy 33.9 ml/min; Glucose 90.0 mg/dl (70-99(Fasting)); Potassium 3.6 mmol/L (3.5-5.1); Sodium 136.0 mmol/L (136-145)
[2024-09-08 07:16] LABS: Hematocrit (blood only) 26.6 % (42.0-52.0); Hemoglobin 8.1 g/dl (14.0-18.0); Mean Corpuscular Hemoglobin 36.0 pg (25.0-34.0); Mean Corpuscular Volume 118.2 fL (80.0-100.0); Platelet Count 105 K/uL (130-400); RDW Standard Deviation 71.9 fL (36.4-46.3); Red Blood Count 2.25 M/uL (4.70-6.10); White Blood Count 8.27 K/ul (4.8-10.8)
[2024-09-08 07:17] LABS: Immature Granulocytes # (auto) 0.11 K/uL (0.01-0.20); Immature Granulocytes % (auto) 1.3 %; Macrocytosis Present; Polychromasia 2+
--- NOTE | 2024-09-08 21:48 | Hospitalist Progress Note ---
Date of Service September 08, 2024 Assessment & Plan (1) Sepsis: Plan: To address Severe sepsis, without septic shock, of unclear etiology, in the setting of acute rhinoviral/enteroviral LLL CAP. R/O gram negative narciso- associated bacteremia. R/O right gluteal wound infection, patient received ceftriaxone 2g IV x 1 dose (09/05/2024, 11:58am) in [facility] ER bed #C10. Patient continues with ceftriaxone 2g IV daily x 6 doses (starting on 09/06/2024, 8:12am) in [facility] PCU bed #E208-1. I will check vitals, chest exam, WBC w/diff, lactic acid, procalcitonin, blood culture #1 (09/05/2024, 11:37am), and blood culture #2 (09/05/2024, 11:47am) in the 09/07/2024 am. Of note, patient does not appear to be in any respiratory distress and in fact, maintains a resting RR 16, O2 sat 99% on room air (09/05/2024, 9:40am) in [facility] ER bed #C10 and a resting RR 17, O2 sat 94% on room air (09/07/2024, 8:20pm) in [facility] PCU bed #E208-1. (2) Toxic metabolic encephalopathy: Plan: To address Acute toxic metabolic encephalopathy, most likely due to severe sepsis, patient received ceftriaxone 2g IV x 1 dose (09/05/2024, 11:58am) in [facility] ER bed #C10. Patient continues with ceftriaxone 2g IV daily x 6 doses (starting on 09/06/2024, 8:12am) in [facility] PCU bed #E208-1. I will check vitals, neuro exam, WBC w/diff, lactic acid, procalcitonin, blood culture #1 (09/05/2024, 11:37am), and blood culture #2 (09/05/2024, 11:47am) in the 09/08/2024 am. (3) Traumatic rhabdomyolysis: Plan: To address Acute traumatic rhabdomyolysis with admission creatinine CK 4,836 U/L (09/05/2024, 9:50am), patient received 2 liters of 0.9% NS @ 999 mL/hr (09/05/2024, 11:28am) in [facility] ER bed #C10. Patient received one 1 liter of 0.9% NS @ 61 mL/hr (09/05/2024, 6:41pm), based on a delivery rate of 1 mL of 0.9% NS per kg of body weight per hour, and a body weight of 60.6 kg, in [facility] PCU bed #E208-1. Acute traumatic rhabdomyolysis is RESOLVING with post-hydration CK 3,431 U/L (09/06/2024, 6:45am). Patient subsequently received 1 liter of 0.9% NS @ 61 mL/hr (09/06/2024, 1:43pm). Acute traumatic rhabdomyolysis is RESOLVING with post-hydration CK 1,607 U/L (09/07/2024, 6:15am). I have subsequently ordered 1 liter of 0.9% NS @ 61 mL/hr (09/07/2024, 9:31pm). I will check repeat CK level in the 09/09/2024 am. (4) Acute kidney failure: Plan: To address Acute kidney injury with admission creatinine creatinine 1.98, GFR 32.3 mL/min (09/05/2024, 9:50am), patient received 2 liters of 0.9% NS @ 999 mL/hr (09/05/2024, 11:28am) in [facility] ER bed #C10. Patient received one 1 liter of 0.9% NS @ 61 mL/hr (09/05/2024, 6:41pm), based on a delivery rate of 1 mL of 0.9% NS per kg of body weight per hour, and a body weight of 60.6 kg, [facility]. Acute kidney injury is RESOLVING with post-hydration creatinine 1.50 mg/dL, GFR 45.1 mL/min (09/06/2024, 6:45am). Patient subsquently received 1 liter of 0.9% NS @ 61 mL/hr (09/06/2024, 1:43pm). Acute kidney injury is RESOLVING with post- hydration creatinine 1.49 mg/dL, GFR 45.4 mL/min (09/07/2024, 6:15am). I have subsequently ordered 1 liter of 0.9% NS @ 61 mL/hr (09/07/2024, 9:31pm). I will check repeat creatinine level in the 09/09/2024 am. (5) Acute hyponatremia: Plan: To address Acute hypovolemic hyponatremia with admission Na 134 mmol/L (09/05/2024, 9:50am), patient received 2 liters of 0.9% NS @ 999 mL/hr (09/05/2024, 11:28am) in [facility] ER bed #C10. Patient received one 1 liter of 0.9% NS @ 61 mL/hr (09/05/2024, 6:41pm), based on a delivery rate of 1 mL of 0.9% NS per kg of body weight per hour, and a body weight of 60.6 kg, in [facility] PCU bed #E208-1. Acute hypovolemic hyponatremia RESOLVED with post-hydration Na 136 mmol/L (09/06/2024, 6:45am). Nonetheless, as patient's lactic acid level was elevated at 2.5 mmol/L (09/06/2024, 1:22pm), which implies that patient is still dehydrated, despite resolution of acute hypovolemic hyponatremia, I opted to rehydrate patient with 1 liter of 0.9% NS @ 61 mL/hr (09/07/2024, 1:43pm). Patient's Na level remains normal at 138 mmol/L (09/07/2024, 6:15am). Patient remains clinically dehydrated with dry skin and skin tenting, but no capillary refill time > 2 seconds on 09/07/2024. Hence, I have subsequently ordered 1 liter of 0.9% NS @ 61 mL/hr (09/07/2024, 9:31pm). I will check repeat Na level in the 09/09/2024 am. (6) Lactic acid blood increased: Plan: To address Acute lactic acid elevation with admission lactic acid #1 2.4 mmol/L (09/05/2024, 9:50am), patient received 2 liters of 0.9% NS @ 999 mL/hr (09/05/2024, 11:28am) in [facility] ER bed #C10. Patient received one 1 liter of 0.9% NS @ 61 mL/hr (09/05/2024, 6:41pm), based on a delivery rate of 1 mL of 0.9% NS per kg of body weight per hour, and a body weight of 60.6 kg, in [facility] PCU bed #E208-1. Acute lactic acid elevations PERSISTED with post-hydration lactic acid remaining elevated at 2.5 mmol/L (09/06/2024, 1:22pm). Hence, as patient's lactic acid level remained elevated at 2.5 mmol/L (09/06/2024, 1:22pm), which implies that patient is still dehydrated, despite resolution of acute hypovolemic hyponatremia, patient received 1 liter of 0.9% NS @ 61 mL/hr (09/07/2024, 1:43pm). Patient's lactic acid remained elevated at 2.7 mmol/L (09/06/2024, 6:18pm), before falling back to normal at 1.0 mmol/L (09/07/2024, 6:15am). Patient remains clinically dehydrated with dry skin and skin tenting, but no capillary refill time > 2 seconds on 09/07/2024. Hence, I have subsequently ordered 1 liter of 0.9% NS @ 61 mL/hr (09/07/2024, 9:31pm). I will check repeat lactic acid level in the 09/09/2024 am. (7) Ambulatory dysfunction: Plan: To address Acute ambulatory dysfunction, superimposed on chronic ambulatory dysfunction utilizing walker at home alone, patient awaits PT/OT Service evaluations in the 09/07/2024 am, to determine if patient is safe for D/C back to his home alone, or if patient may benefit from D/C to SNF for short-term rehab. (8) Demand ischemia: Plan: To address Acute type II NSTEMI with admission troponin-I #1 37.8 pg/mL (, 9:50am), patient continues to be monitored on telemetry and underwent serial troponin level trending to observe peak troponin level. No further testing is warranted as acute type II NSTEMI with nominal troponin elevation is attributed to demand ischemia, which in turn, is due to severe sepsis, without septic shock, of unclear etiology, in the setting of acute rhinoviral/enteroviral LLL CAP. cf., Troponin-I #1 37.8 pg/mL (, 9:50am). cf., Troponin-I #2 38.5 pg/mL (09/05/2024, 11:47am). cf., Troponin-I #3 69.2 pg/mL (09/05/2024, 2:13pm). cf., Troponin-I #4 330.3 pg/mL (09/05/2024, 7:05pm) cf., Troponin-I #5 296.8 pg/mL (09/06/2024, 6:45am). cf., EKG (09/05/2024, 9:49am): NSR @ 85, [place] 200, QTC 476, no acute ST depressions/elevations (by my review). Admission and Anticipated Discharge Date Admission Date: September 05, 2024 Subjective "I'm back. I feel 80% better than when I came in. Wow! I was very sick. What happened to me?" Review of Systems Constitutional: Negative for antecedent/coincident fevers, chills, diaphoresis, cough, wheeze, sore throat, hemoptysis, chest pains, palpitations, pleurisy, nausea, vomiting, diarrhea, abdominal pain, pelvic pain, hematemesis, hematochezia, melena, hematuria, dysuria, frequency, urgency, headaches, dizziness, lightheadedness, visual changes, hearing changes, weakness, falls, syncope, trauma, travel history, sick contacts, or food/drug ingestions novel or new. All other review of systems are reported as negative by the patient on 09/08/2024. Physical Exam Constitutional: General: Comfortable, cooperative, coherent. Wide awake and alert. Not confused, lethargic, or obtunded. Patient speaks in complete, fluent, and articulate sentences without pause, interruption, cough, or wheeze. HEENT: Normocephalic, atraumatic. Pupils equally round and reactive to light. No nystagmus, gaze paresis, anisocoria, miosis, mydriasis, hyphema, scleral injection, conjunctivitis, or pterygium. No otorrhea. No pharyngeal erythema, edema, or discharge. Neck: Supple, no stridor, bruit, goiter, or hepato-jugular reflux. Jugular venous pressure is estimated to be 3 cm above the sternal angle of Dandre, which in turn, is 5 cm above the level of the right atrium; with jugular venous pressure estimated to be 8 cm, then, there is no jugular venous distention on 09/08/2024. Lymphatics: No cervical (anterior/posterior), supraclavicular, infraclavicular, axillary, epitrochlear, or inguinal adenopathy. Chest: Symmetric rise and fall with respirations. Non-tender to palpation. Lungs: Clear to auscultation and percussion. No audible expiratory wheeze, egophony, pectoriloquy, increase in tactile fremitus, or flatness/dullness to percussion at the bases. Heart: RRR. S1 and S2 noted. No S3 or S4 summation gallop. No tripartite friction rub. Grade II/ early systolic murmur @ LLSB without radiation to the carotids, axilla, or back, and which remains invariant in regards to the respiratory cycle. Abdomen: Soft, non-tender, non-distended. No rebound, guarding, Selby's sign, or organomegaly. Bowel sounds auscultated in all 4 quadrants. Extremities: No clubbing, cyanosis, or edema in upper extremities or lower extremities bilaterally. 2+ pedal pulses bilaterally. Skin: Stage II right gluteal ulcer (of 1 week duration as per patient's granddaughter), ~10 cm diameter, solitary lesion, with surrounding erythema, but no edema, induration, warmth, tenderness, crepitus, fluctuance (sanguineous, serous, suppurative), malodor, or lymphangitic streaking. No exanthem or enanthem. Genito-urinary: No urethral discharge. No ross catheter. Neurology: No myoclonus, tremors, or tics. Psychiatry: No homicidal ideation. No suicidal ideation. No flat affect; smiles appropriately. Results & Data Results & Data Vital Signs (Past 12 Hours) Vital Signs Temp Pulse Pulse Resp BP Pulse Ox O2 Del Method 09/08/24 20:25 Room Air 09/08/24 19:51 37.0 C 83 16 142/64 H 95 Room Air 09/08/24 16:56 76 09/08/24 15:40 37.1 C 80 18 130/61 96 Room Air 09/08/24 11:34 36.4 C L 69 18 111/59 L 98 Room Air PG Care Time/CCT Total # of Minutes Spent Total Time Spent with Patient: Total time spent is greater than 50% in coordination of care (as documented) at patient's floor/unit and/or counseling patient: Coding Level of Care Code 12791 SUB INP/OBS CARE 3/50MIN Diagnoses Sepsis A41.9 Toxic metabolic encephalopathy G92.8 Traumatic rhabdomyolysis T79.6XXA Acute kidney failure N17.9 Acute hyponatremia E87.1 Lactic acid blood increased R79.89 Ambulatory dysfunction R26.2 Demand ischemia I24.89
[2024-09-09 07:07] LABS: Hematocrit (blood only) 27.4 % (42.0-52.0); Hemoglobin 8.4 g/dl (14.0-18.0); Immature Granulocytes # (auto) 0.13 K/uL (0.01-0.20); Immature Granulocytes % (auto) 2.1 %; Mean Corpuscular Hemoglobin 35.9 pg (25.0-34.0); Mean Corpuscular Volume 117.1 fL (80.0-100.0); Platelet Count 107 K/uL (130-400); RDW Standard Deviation 73.5 fL (36.4-46.3); Red Blood Count 2.34 M/uL (4.70-6.10); White Blood Count 6.27 K/ul (4.8-10.8)
[2024-09-09 07:28] LABS: Anion Gap 8.0 (3-11); Blood Urea Nitrogen 24.0 mg/dl (6-23); Calcium 8.4 mg/dl (8.6-10.3); Carbon Dioxide 25.0 mmol/L (21-32); Chloride 104.0 mmol/L (98-107); Creatine Kinase 753.0 U/L (30-223); Creatinine Clr Calc Pharmacy 35.2 ml/min; Glucose 105.0 mg/dl (70-99(Fasting)); Potassium 3.3 mmol/L (3.5-5.1); Sodium 137.0 mmol/L (136-145)
[2024-09-09 07:32] LABS: Macrocytosis Present; Polychromasia 1+
[2024-09-09] MEDS: SODIUM CHLORIDE 0.9% 1,000 ML IV ONE (08:30)
[2024-09-09] MEDS: POTASSIUM CHLORIDE CRTAB 20 MEQ TABCR PO STA (08:32)
--- NOTE | 2024-09-09 20:46 | Hospitalist Progress Note ---
Date of Service September 09, 2024 Assessment & Plan (1) Sepsis: Plan: To address Severe sepsis, without septic shock, of unclear etiology, in the setting of acute rhinoviral/enteroviral LLL CAP. R/O gram negative narciso- associated bacteremia. R/O right gluteal wound infection, patient received ceftriaxone 2g IV x 1 dose (09/05/2024, 11:58am) in [facility] ER bed #C10. Subsequently, severe sepsis has RESOLVED as patient continues with ceftriaxone 2g IV daily x 6 doses (starting on 09/06/2024, 8:12am; 09/07/2024, 8:15am; 09/08/2024, 10:01am; 09/09/2024, 8:30am) in [facility] PCU bed #E208-1. I will check vitals, chest exam, WBC w/diff, lactic acid, procalcitonin, blood culture #1 (09/05/2024, 11:37am), and blood culture #2 (09/05/2024, 11:47am) in the 09/07/2024 am. Of note, patient does not appear to be in any respiratory distress and in fact, maintained a resting RR 16, O2 sat 99% on room air (09/05/2024, 9:40am) in [facility] ER bed #C10 and a current resting RR 17, O2 sat 97% on room air (09/09/2024, 7:51pm) in [facility] PCU bed #E208-1. (2) Toxic metabolic encephalopathy: Plan: To address Acute toxic metabolic encephalopathy, most likely due to severe sepsis, patient received ceftriaxone 2g IV x 1 dose (09/05/2024, 11:58am) in [facility] ER bed #C10. Patient continues with ceftriaxone 2g IV daily x 6 doses (starting on 09/06/2024, 8:12am) in [facility] PCU bed #E208-1. I will check vitals, neuro exam, WBC w/diff, lactic acid, procalcitonin, blood culture #1 (09/05/2024, 11:37am), and blood culture #2 (09/05/2024, 11:47am) in the 09/10/2024 am. (3) Traumatic rhabdomyolysis: Plan: To address Acute traumatic rhabdomyolysis with admission creatinine CK 4,836 U/L (09/05/2024, 9:50am), patient received 2 liters of 0.9% NS @ 999 mL/hr (09/05/2024, 11:28am) in [facility] ER bed #C10. Patient received one 1 liter of 0.9% NS @ 61 mL/hr (09/05/2024, 6:41pm), based on a delivery rate of 1 mL of 0.9% NS per kg of body weight per hour, and a body weight of 60.6 kg, in [facility] PCU bed #E208-1. Acute traumatic rhabdomyolysis is RESOLVING with post-hydration CK 3,431 U/L (09/06/2024, 6:45am). Patient subsequently received 1 liter of 0.9% NS @ 61 mL/hr (09/06/2024, 1:43pm). Acute traumatic rhabdomyolysis is RESOLVING with post-hydration CK 1,607 U/L (09/07/2024, 6:15am). Patient subsequently received 1 liter of 0.9% NS @ 61 mL/hr (09/07/2024, 9:31pm). Acute traumatic rhabdomyol ysis is RESOLVING with post-hydration CK 1,221 U/L (09/08/2024, 6:21am) and current CK 753 U/L (09/09/2024, 6:56am). I have opted to hydrate patient with 1 last liter of 0.9% NS @ 61 mL/hr (09/09/2024, 8:47pm) prior to D/C back to home on 09/10/2024 am. I will check repeat CK level in the 09/10/2024 am. (4) Acute kidney failure: Plan: To address Acute kidney injury with admission creatinine creatinine 1.98, GFR 32.3 mL/min (09/05/2024, 9:50am), patient received 2 liters of 0.9% NS @ 999 mL/hr (09/05/2024, 11:28am) in [facility] ER bed #C10. Patient received one 1 liter of 0.9% NS @ 61 mL/hr (09/05/2024, 6:41pm), based on a delivery rate of 1 mL of 0.9% NS per kg of body weight per hour, and a body weight of 60.6 kg, in [facility] PCU bed #E208-1. Acute kidney injury is RESOLVING with post-hydration creatinine 1.50 mg/dL, GFR 45.1 mL/min (09/06/2024, 6:45am). Patient subsequently received 1 liter of 0.9% NS @ 61 mL/hr (09/06/2024, 1:43pm). Acute kidney injury was RESOLVING with post- hydration creatinine 1.49 mg/dL, GFR 45.4 mL/min (09/07/2024, 6:15am). Patient subsequently received 1 liter of 0.9% NS @ 61 mL/hr (09/07/2024, 9:31pm). Acute kidney injury RESOLVED with post-hydration creatinine 1.34 mg/dL, GFR 51.6 mL/min (09/08/2024, 6:21pm) and current creatinine 1.29 mg/dL, GFR 54.0 mL/min (09/09/2024, 6:56am). cf., CKD stage III with baseline creatinine range, 1.24 - 1.39 (01/19/2022 - 09/21/2023). I have opted to hydrate patient with 1 last liter of 0.9% NS @ 61 mL/hr (09/09/2024, 8:47pm) prior to D/C back to home on 09/10/2024 am. In addition, I will check repeat creatinine level in the 09/10/2024 am. (5) Acute hyponatremia: Plan: To address Acute hypovolemic hyponatremia with admission Na 134 mmol/L (09/05/2024, 9:50am), patient received 2 liters of 0.9% NS @ 999 mL/hr (09/05/2024, 11:28am) in [facility] ER bed #C10. Patient received one 1 liter of 0.9% NS @ 61 mL/hr (09/05/2024, 6:41pm), based on a delivery rate of 1 mL of 0.9% NS per kg of body weight per hour, and a body weight of 60.6 kg, in [facility] PCU bed #E208-1. Acute hypovolemic hyponatremia RESOLVED with post-hydration Na 136 mmol/L (09/06/2024, 6:45am). Nonetheless, as patient's lactic acid level was elevated at 2.5 mmol/L (09/06/2024, 1:22pm), which implies that patient is still dehydrated, despite resolution of acute hypovolemic hyponatremia, I opted to rehydrate patient with 1 liter of 0.9% NS @ 61 mL/hr (09/07/2024, 1:43pm). Patient's Na level remains normal at 138 mmol/L (09/07/2024, 6:15am). Patient remains clinically dehydrated with dry skin and skin tenting, but no capillary refill time > 2 seconds on 09/07/2024. Hence, patient subsequently received 1 liter of 0.9% NS @ 61 mL/hr (09/07/2024, 9:31pm). Patient's Na level remains normal at 136 mmol/L (09/08/2024, 6:21am) and 137 mmol/L (09/09/2024, 6:56am). I have opted to hydrate patient with 1 last liter of 0.9% NS @ 61 mL/hr (09/09/2024, 8:47pm) prior to D/C back to home on 09/10/2024 am. In addition, I will check repeat Na level in the 09/10/2024 am. (6) Lactic acid blood increased: Plan: To address Acute lactic acid elevation with admission lactic acid #1 2.4 mmol/L (09/05/2024, 9:50am), patient received 2 liters of 0.9% NS @ 999 mL/hr (09/05/2024, 11:28am) in [facility] ER bed #C10. Patient re ceived one 1 liter of 0.9% NS @ 61 mL/hr (09/05/2024, 6:41pm), based on a delivery rate of 1 mL of 0.9% NS per kg of body weight per hour, and a body weight of 60.6 kg, in [facility] PCU bed #E208-1. Acute lactic acid elevations PERSISTED with post-hydration lactic acid remaining elevated at 2.5 mmol/L (09/06/2024, 1:22pm). Hence, as patient's lactic acid level remained elevated at 2.5 mmol/L (09/06/2024, 1:22pm), which implies that patient is still dehydrated, despite resolution of acute hypovolemic hyponatremia, patient received 1 liter of 0.9% NS @ 61 mL/hr (09/07/2024, 1:43pm). Patient's lactic acid remained elevated at 2.7 mmol/L (09/06/2024, 6:18pm), before falling back to normal at 1.0 mmol/L (09/07/2024, 6:15am). Patient remained clinically dehydrated with dry skin and skin tenting, but no capillary refill time > 2 seconds on 09/07/2024. Patient subsequently received 1 liter of 0.9% NS @ 61 mL/hr (09/07/2024, 9:31pm). Acute lactic acid elevation remained RESOLVED with repeat lactic acid 1.1 mmol/L (09/08/2024, 6:21am). Acute lactic acid elevation RECURRED with repeat lactic acid 2.4 mmol/L (09/09/2024, 6:56am); retest lactic acid level came back normal at 1.9 mmol/L (09/09/2024, 11:19am). I have opted to hydrate patient with 1 last liter of 0.9% NS @ 61 mL/hr (09/09/2024, 8:47pm) prior to D/C back to home on 09/10/2024 am. In addition, I will check repeat lactic acid level in the 09/10/2024 am. (7) Ambulatory dysfunction: Plan: To address Acute ambulatory dysfunction, superimposed on chronic ambulatory dysfunction utilizing walker at home alone, patient awaits PT/OT Service evaluations in the 09/10/2024 am, to determine if patient is safe for D/C back to his home alone, or if patient may benefit from D/C to SNF for short-term rehab. (8) Demand ischemia: Plan: To address Acute type II NSTEMI with admission troponin-I #1 37.8 pg/mL (, 9:50am), patient continues to be monitored on telemetry and underwent serial troponin level trending to observe peak troponin level. No further testing is warranted as acute type II NSTEMI with nominal troponin elevation is attributed to demand ischemia, which in turn, is due to severe sepsis, without septic shock, of unclear etiology, in the setting of acute rhinoviral/enteroviral LLL CAP. cf., Troponin-I #1 37.8 pg/mL (, 9:50am). cf., Troponin-I #2 38.5 pg/mL (09/05/2024, 11:47am). cf., Troponin-I #3 69.2 pg/mL (09/05/2024, 2:13pm). cf., Troponin-I #4 330.3 pg/mL (09/05/2024, 7:05pm) cf., Troponin-I #5 296.8 pg/mL (09/06/2024, 6:45am). cf., EKG (09/05/2024, 9:49am): NSR @ 85, NH 200, QTC 476, no acute ST depressions/elevations (by my review). Admission and Anticipated Discharge Date Admission Date: September 05, 2024 Subjective "I'm great. I am 100% better than when I came in. When can I go to rehab?" Review of Systems Constitutional: Negative for antecedent/coincident fevers, chills, diaphoresis, cough, wheeze, sore throat, hemoptysis, chest pains, palpitations, pleurisy, nausea, vomiting, diarrhea, abdominal pain, pelvic pain, hematemesis, hematochezia, melena, hematuria, dysuria, frequency, urgency, headaches, dizziness, lightheadedness, visual changes, hearing changes, weakness, falls, syncope, trauma, travel history, sick contacts, or food/drug ingestions novel or new. All other review of systems are reported as negative by the patient on 09/09/2024. Physical Exam Constitutional: General: Comfortable, cooperative, coherent. Wide awake and alert. Not confused, lethargic, or obtunded. Patient speaks in complete, fluent, and articulate sentences without pause, interruption, cough, or wheeze. HEENT: Normocephalic, atraumatic. Pupils equally round and reactive to light. No nystagmus, gaze paresis, anisocoria, miosis, mydriasis, hyphema, scleral injection, conjunctivitis, or pterygium. No otorrhea. No pharyngeal erythema, edema, or discharge. Neck: Supple, no stridor, bruit, goiter, or hepato-jugular reflux. Jugular venous pressure is estimated to be 3 cm above the sternal angle of Dandre, which in turn, is 5 cm above the level of the right atrium; with jugular venous pressure estimated to be 8 cm, then, there is no jugular venous distention on 09/09/2024. Lymphatics: No cervical (anterior/posterior), supraclavicular, infraclavicular, axillary, epitrochlear, or inguinal adenopathy. Chest: Symmetric rise and fall with respirations. Non-tender to palpation. Lungs: Clear to auscultation and percussion. No audible expiratory wheeze, egophony, pectoriloquy, increase in tactile fremitus, or flatness/dullness to percussion at the bases. Heart: RRR. S1 and S2 noted. No S3 or S4 summation gallop. No tripartite friction rub. Grade II/ early systolic murmur @ LLSB without radiation to the carotids, axilla, or back, and which remains invariant in regards to the respiratory cycle. Abdomen: Soft, non-tender, non-distended. No rebound, guarding, Selby's sign, or organomegaly. Bowel sounds auscultated in all 4 quadrants. Extremities: No clubbing, cyanosis, or edema in upper extremities or lower extremities bilaterally. 2+ pedal pulses bilaterally. Skin: Stage II right gluteal ulcer (of 1 week duration as per patient's granddaughter), ~10 cm diameter, solitary lesion, with surrounding erythema, but no edema, induration, warmth, tenderness, crepitus, fluctuance (sanguineous, serous, suppurative), malodor, or lymphangitic streaking. No exanthem or enanthem. Genito-urinary: No urethral discharge. No ross catheter. Neurology: No myoclonus, tremors, or tics. Psychiatry: No homicidal ideation. No suicidal ideation. No flat affect; smiles appropriately. Results & Data Results & Data Vital Signs (Past 12 Hours) Vital Signs Temp Pulse Resp BP Pulse Ox O2 Del Method 09/09/24 19:51 37.0 C 76 17 164/68 H 97 Room Air 09/09/24 15:49 37.1 C 73 20 146/71 H 98 Room Air 09/09/24 12:00 36.7 C 72 20 157/78 H 97 Room Air Laboratory Results Abnormal lab results 09/09/24 Range/Units 06:56 RBC 2.34 L (4.70-6.10) M/uL Hgb 8.4 L (14.0-18.0) g/dl Hct 27.4 L (42.0-52.0) % MCV 117.1 H (80.0-100.0) fL MCH 35.9 H (25.0-34.0) pg MCHC 30.7 L (32.0-36.0) g/dL RDW Std Deviation 73.5 H (36.4-46.3) fL RDW Coeff of [place] 17.1 H (11.5-14.5) % Plt Count 107 L (130-400) K/uL Lymph # (Auto) 0.52 L (1.20-3.40) K/uL [place] # (Auto) 0.91 H (0.11-0.59) K/uL Potassium 3.3 L (3.5-5.1) mmol/L BUN 24 H (6-23) mg/dl Glucose 105 H (70-99(Fasting)) mg/dl Lactate 2.4 H* (0.4-2.0) mmol/L Calcium 8.4 L (8.6-10.3) mg/dl Total Creatine Kinase 753 H (30-223) U/L PG Care Time/CCT Total # of Minutes Spent Total Time Spent with Patient: Total time spent is greater than 50% in coordination of care (as documented) at patient's floor/unit and/or counseling patient: Coding Level of Care Code 41552 SUB INP/OBS CARE 3/50MIN Diagnoses Sepsis A41.9 Toxic metabolic encephalopathy G92.8 Traumatic rhabdomyolysis T79.6XXA Acute kidney failure N17.9 Acute hyponatremia E87.1 Lactic acid blood increased R79.89 Ambulatory dysfunction R26.2 Demand ischemia I24.89
[2024-09-09] MEDS: POLYETHYLENE (MIRALAX) 17 GM PACK PO PRN (20:51)
[2024-09-09 22:59] VITALS: RESP 18
[2024-09-10] MEDS: SODIUM CHLORIDE 0.9% 1,000 ML IV ONE (00:30)
[2024-09-10 05:59] LABS: Hematocrit (blood only) 24.7 % (42.0-52.0); Hemoglobin 7.5 g/dl (14.0-18.0); Immature Granulocytes # (auto) 0.24 K/uL (0.01-0.20); Immature Granulocytes % (auto) 4.5 %; Mean Corpuscular Hemoglobin 35.2 pg (25.0-34.0); Mean Corpuscular Volume 116.0 fL (80.0-100.0); Platelet Count 105 K/uL (130-400); RDW Standard Deviation 72.4 fL (36.4-46.3); Red Blood Count 2.13 M/uL (4.70-6.10); White Blood Count 5.30 K/ul (4.8-10.8)
[2024-09-10 06:14] LABS: Anion Gap 7.0 (3-11); Calcium 8.3 mg/dl (8.6-10.3); Carbon Dioxide 23.0 mmol/L (21-32); Chloride 107.0 mmol/L (98-107); Potassium 3.9 mmol/L (3.5-5.1); Sodium 137.0 mmol/L (136-145)
[2024-09-10 06:20] LABS: Blood Urea Nitrogen 24.0 mg/dl (6-23); Creatine Kinase 414.0 U/L (30-223); Creatinine Clr Calc Pharmacy 35.8 ml/min; Glucose 91.0 mg/dl (70-99(Fasting))
[2024-09-10 06:25] LABS: Macrocytosis Present; Polychromasia 1+
--- NOTE | 2024-09-10 10:22 | Discharge Summary ---
Discharge Summary Date of Service September 10, 2024 Principal Dx & Hospital Course #1 = Principal Diagnosis (1) Sepsis: To address Severe sepsis, without septic shock, of unclear etiology, in the setting of acute rhinoviral/enteroviral LLL CAP. R/O gram negative narciso- associated bacteremia. R/O right gluteal wound infection, patient received third generation cephalosporin ceftriaxone 2g IV x 1 dose (09/05/2024, 11:58am) in [facility] ER bed #C10. Subsequently, severe sepsis RESOLVED as patient continued with third generation cephalosporin ceftriaxone 2g IV daily x 5 doses (starting on 09/06/2024, 8:12am; 09/07/2024, 8:15am; 09/08/2024, 10:01am; 09/09/2024, 8:30am; 09/10/2024, 9:04am) in [facility] PCU bed #E208-1. Of note, patient does not appear to be in any respiratory distress and in fact, maintained a resting RR 16, O2 sat 99% on room air (09/05/2024, 9:40am) in [facility] ER bed #C10 and a current resting RR 18, O2 sat 96% on room air (09/10/2024, 8:10am) in [facility] PCU bed #E208-1. Patient was subsequently discharged back to his home with home health services including outpatient PT/OT, and visiting nurse services on 09/10/2024. In addition, patient's [id number], [address] [place] [address], received an electronic prescription for third generation cephalosporin cefdinir 300mg PO bid (09/11/2024, 9:00am, 3:00pm), #2 capsules, no refills, on 09/10/2024, prior to patient's discharge back to his home with home health services including outpatient PT/OT, and visiting nurse services on 09/10/2024. (2) Toxic metabolic encephalopathy: To address Acute toxic metabolic encephalopathy (demonstrated on 09/05/2024 [facility] ER exam with patient remaining non-verbal, immobile, both eyes closed, not responding to verbal or noxious stimuli) most likely due to severe sepsis, patient received ceftriaxone 2g IV x 1 dose (09/05/2024, 11:58am) in [facility] ER bed #C10. Subsequently, acute toxic metabolic encephalopathy RESOLVED as patient continued with ceftriaxone 2g IV daily x 5 doses (starting on 09/06/2024, 8:12am; 09/07/2024, 8:15am; 09/08/2024, 10:01am; 09/09/2024, 8:30am; 09/10/2024, 9:04am) in [facility] PCU bed #E208-1. S (3) Traumatic rhabdomyolysis: To address Acute traumatic rhabdomyolysis with admission creatinine CK 4,836 U/L (09/05/2024, 9:50am), patient received 2 liters of 0.9% NS @ 999 mL/hr (09/06/19 25, 11:28am) in [facility] ER bed #C10. Patient subsequently received one 1 liter of 0.9% NS @ 61 mL/hr (09/05/2024, 6:41pm), based on a delivery rate of 1 mL of 0.9% NS per kg of body weight per hour, and a body weight of 60.6 kg, in [facility] PCU bed #E208-1. Acute traumatic rhabdomyolysis started to RESOLVE with post-hydration CK 3,431 U/L (09/06/2024, 6:45am). Patient subsequently received 1 liter of 0.9% NS @ 61 mL/hr (09/06/2024, 1:43pm). Acute traumatic rhabdomyolysis continued to RESOLVE with post- hydration CK 1,607 U/L (09/07/2024, 6:15am). Patient subsequently received 1 liter of 0.9% NS @ 61 mL/hr (09/07/2024, 9:31pm). Acute traumatic rhabdomyolysis continued to RESOLVE with post- hydration CK 1,221 U/L (09/08/2024, 6:21am) and repeat CK 753 U/L (09/09/2024, 6:56am). Patient subsequently received 1 liter of 0.9% NS @ 61 mL/hr (09/09/2024, 8:47pm). Acute traumatic rhabdomyolysis continued to RESOLVE with post- hydration CK 414 U/L (09/10/2024, 5:47am). Patient subsequently was discharged back to his home with home health services including outpatient PT/OT, and visiting nurse services on 09/10/2024, with no further need for IV fluid rehydration. Instead, patient was encouraged to partake of a heart healthy diet PO ad libitum, in order to remain hydrated at his home. Patient reports that he will comply with this recommendation. (4) Acute kidney failure: To address Acute kidney injury with admission creatinine creatinine 1.98, GFR 32.3 mL/min (09/05/2024, 9:50am), patient received 2 liters of 0.9% NS @ 999 mL/hr (09/05/2024, 11:28am) in [facility] ER bed #C10. Patient subsequently received one 1 liter of 0.9% NS @ 61 mL/hr (09/05/2024, 6:41pm), based on a delivery rate of 1 mL of 0.9% NS per kg of body weight per hour, and a body weight of 60.6 kg, in [facility] PCU bed #E208-1. Acute kidney injury started to RESOLVE with post-hydration creatinine 1.50 mg/dL, GFR 45.1 mL/min (09/06/2024, 6:45am). Patient subsequently received 1 liter of 0.9% NS @ 61 mL/hr (09/06/2024, 1:43pm). Acute kidney injury continued to RESOLVE with post-hydration creatinine 1.49 mg/dL, GFR 45.4 mL/min (09/07/2024, 6:15am). Patient subsequently received 1 liter of 0.9% NS @ 61 mL/hr (09/07/2024, 9:31pm). Acute kidney injury continued to RESOLVE with post-hydration creatinine 1.34 mg/dL, GFR 51.6 mL/min (09/08/2024, 6:21pm) and repeat creatinine 1.29 mg/dL, GFR 54.0 mL/min (09/09/2024, 6:56am). Patient subsequently received 1 liter of 0.9% NS @ 61 mL/hr (09/09/2024, 8:47pm). Acute kidney injury continued to RESOLVE with post-hydration creatinine 1.27 mg/dL, GFR 55.0 mL/min (09/09/2024, 5:47am). cf., CKD stage III with baseline creatinine range, 1.24 - 1.39 (01/19/2022 - 09/21/2023). Patient subsequently was discharged back to his home with home health services including outpatient PT/OT, and visiting nurse services on 09/10/2024, with no further need for IV fluid rehydration. Instead, patient was encouraged to p artake of a heart healthy diet PO ad libitum, in order to remain hydrated at his home. Patient reports that he will comply with this recommendation. (5) Acute hyponatremia: To address Acute hypovolemic hyponatremia with admission Na 134 mmol/L (09/05/2024, 9:50am), patient received 2 liters of 0.9% NS @ 999 mL/hr (09/06/19 25, 11:28am) in [facility] ER bed #C10. Patient subsequently received one 1 liter of 0.9% NS @ 61 mL/hr (09/05/2024, 6:41pm), based on a delivery rate of 1 mL of 0.9% NS per kg of body weight per hour, and a body weight of 60.6 kg, in [facility] PCU bed #E208-1. Acute hypovolemic hyponatremia RESOLVED with post-hydration Na 136 mmol/L (09/06/2024, 6:45am). Nonetheless, as patient's lactic acid level was elevated at 2.5 mmol/L (09/06/2024, 1:22pm), which implied that patient was still dehydrated, despite resolution of acute hypovolemic hyponatremia, I opted to rehydrate patient with 1 liter of 0.9% NS @ 61 mL/hr (09/07/2024, 1:43pm). Patient's Na level remained normal at 138 mmol/L (09/07/2024, 6:15am). Patient remained, however, clinically dehydrated with dry skin and skin tenting, but no capillary refill time > 2 seconds on 09/07/2024. Hence, patient subsequently received 1 liter of 0.9% NS @ 61 mL/hr (09/07/2024, 9:31pm). Patient's Na level remained normal at 136 mmol/L (09/08/2024, 6:21am) and 137 mmol/L (09/09/2024, 6:56am). Patient remained, however, clinically dehydrated with dry skin and skin tenting, but no capillary refill time > 2 seconds on 09/07/2024. Hence, patient subsequently received 1 liter of 0.9% NS @ 61 mL/hr (09/09/2024, 8:47pm). Patient's Na level remained normal at 137 mmol/L (09/10/2024, 5:47am). Patient subsequently was discharged back to his home with home health services including outpatient PT/OT, and visiting nurse services on 09/10/2024, with no further need for IV fluid rehydration. Instead, patient was encouraged to partake of a heart healthy diet PO ad libitum, in order to remain hydrated at his home. Patient reports that he will comply with this recommendation. (6) Lactic acid blood increased: To address Acute lactic acid elevation with admission lactic acid #1 2.4 mmol/L (09/05/2024, 9:50am), patient received 2 liters of 0.9% NS @ 999 mL/hr (09/05/2024, 11:28am) in [facility] ER bed #C10. Patient received one 1 liter of 0.9% NS @ 61 mL/hr (09/05/2024, 6:41pm), based on a delivery rate of 1 mL of 0.9% NS per kg of body weight per hour, and a body weight of 60.6 kg, in [facility] PCU bed #E208-1. Acute lactic acid elevations PERSISTED with post-hydration lactic acid remaining elevated at 2.5 mmol/L (09/06/2024, 1:22pm). Hence, as patient's lactic acid level remained elevated at 2.5 mmol/L (09/06/2024, 1:22pm), which implies that patient was still dehydrated, despite resolution of acute hypovolemic hyponatremia, patient received 1 liter of 0.9% NS @ 61 mL/hr (09/07/2024, 1:43pm). Patient's lactic acid remained elevated at 2.7 mmol/L (09/06/2024, 6:18pm), before falling back to normal at 1.0 mmol/L (09/07/2024, 6:15am). Patient remained clinically dehydrated with dry skin and skin tenting, but no capillary refill time > 2 seconds on 09/07/2024. Patient subsequently received 1 liter of 0.9% NS @ 61 mL/hr (09/07/2024, 9:31pm). Acute lactic acid elevation remained RESOLVED with repeat lactic acid 1.1 mmol/L (09/08/2024, 6:21am). Acute lactic acid elevation RECURRED with repeat lactic acid 2.4 mmol/L (09/09/2024, 6:56am); retest lactic acid level came back normal at 1.9 mmol/L (09/09/2024, 11:19am). Patient subsequently received 1 liter of 0.9% NS @ 61 mL/hr (09/09/2024, 8:47pm) prior to D/C back to home on 09/10/2024 am. Patient's discharge lactic acid level remains normal at 1.5 mmol/L (09/10/2024, 5:47am). Patient subsequently was discharged back to his home with home health services including outpatient PT/OT, and visiting nurse services on 09/10/2024, with no further need for IV fluid rehydration. Instead, patient was encouraged to partake of a heart healthy diet PO ad libitum, in order to remain hydrated at his home. Patient reports that he will comply with this recommendation. (7) Ambulatory dysfunction: To address Acute ambulatory dysfunction, superimposed on chronic ambulatory dysfunction utilizing walker at home alone, patient underwent PT/OT Service evaluations in the 09/10/2024 am, to determine if patient was safe for D/C back to his home alone, or if patient could benefit from D/C to SNF for short-term rehab. PT/OT Services actually recommended that patient be discharged to Acute Rehab, but patient's grand daughter, Ms. Kimberly Pate ( ), declined to D/C patient to Acute Rehab, and instead, requested that patient be discharged back to his home with home health services including outpatient PT/OT, and visiting nurse services on 09/10/2024. Patient subsequently was discharged back to his home with home health services including outpatient PT/OT, and visiting nurse services on 09/10/2024. (8) Demand ischemia: To address Acute type II NSTEMI with admission troponin-I #1 37.8 pg/mL (, 9:50am), patient continues to be monitored on telemetry and und erwent serial troponin level trending to observe peak troponin level. No further testing is warranted as acute type II NSTEMI with nominal troponin elevation is attributed to demand ischemia, which in turn, is due to severe sepsis, without septic shock, of unclear etiology, in the setting of acute rhinoviral/enteroviral LLL CAP. cf., Troponin-I #1 37.8 pg/mL (, 9:50am). cf., Troponin-I #2 38.5 pg/mL (09/05/2024, 11:47am). cf., Troponin-I #3 69.2 pg/mL (09/05/2024, 2:13pm). cf., Troponin-I #4 330.3 pg/mL (09/05/2024, 7:05pm) cf., Troponin-I #5 296.8 pg/mL (09/06/2024, 6:45am). cf., EKG (09/05/2024, 9:49am): NSR @ 85, GA 200, QTC 476, no acute ST depressions/elevations (by my review). Admission HPI Per Admitting Provider 84 years old male with PMH of DNR/DNI @ home alone, chronic ambulatory dysfunction utilizing walker @ home alone, former tobacco abuse with no subsequent diagnosis of COPD, not on home O2 or home steroids, severe hearing loss with no binaural hearing aids in situ, HTN, CKD stage III with baseline creatinine range, 1.24 - 1.39 (01/19/2022 - 09/21/2023), chronic thrombocytopen ia with baseline platelet range, 105-129 (01/19/2022 - 09/02/2024), chronic macrocytic, hypochromic anemia with progressive decline in Hb 12.2 g/dL (01/11/2017, 10:20am) to 8.3 g/dL (09/02/2014, 9:30am), bladder CA, s/p TURBT, duodenal ulcer, and ampicillin-resistant, unasyn-resistant, gentamicin- resistant, bactrim-resistant, non-ESBL E. coli UTI (as noted on 07/14/2023, 11:30am urine culture) wearing chronic daily Depends diapers, and stage II right gluteal ulcer (of 1 week duration as per patient's granddaughter) present on admission date 09/05/2024, who was found sitting on the toilet bowl while still wearing his Depends diapers, which were saturated with urine, no feces, unable to get up / stand up on 09/05/2024, 7:30am, by his granddaughter who lives next door to the patient, awake, but lethargic with both eyes closed, opening upon hearing his name called by his granddaughter, but not speaking in response to queries from his granddaughter. Patient was subsequently BIBA to [facility] ER on 09/05/2024 for further evaluation. In [facility] ER bed #C10, patient was afebrile @ 36.7 degrees Celsius, HR 83, RR 16, O2 sat 99% on room air, and BP 125/61 (09/05/2024, 9:40am). cf., repeat HR 95, RR 20 (09/05/2024, 12:08pm). Exam was noted for lethargy, obtundation, and non-verbal state. Both eyes were closed and remained closed even on calling patient by his name and on nipple pinch / sternal rub. Stage II right gluteal ulcer (of 1 week duration as per patient's granddaughter), ~10 cm diameter, solitary lesion, with surrounding erythema, but no edema, induration, warmth, tenderness, crepitus, fluctuance (sanguineous, serous, suppurative), malodor, or lymphangitic streaking, was also noted. Labs in [facility] ER bed #C10 included: WBC 29.95, N84 L1 M13, Hb 8.2, MCV 114.9, MCHC 31.3, platelet 137 (09/05/2024, 9:50am). CK 4,836 U/L (09/05/2024, 9:50am). Na 134, K 4.3, BUN 45, creatinine 1.98, GFR 32.3, glucose 106, Ca 8.7, Mg 2.4 (09/05/2024, 9:50am). AST 80, ALT 17, ALK PHOS 57, TBili 1.0 (09/05/2024, 9:50am). Lactic acid #1 2.4 mmol/L (09/05/2024, 9:50am). Lactic acid #2 1.4 mmol/L (09/05/2024, 1:33pm). Lactic acid #3 1.3 mmol/L (09/05/2024, 2:13pm). Procalcitonin #1 1.92 ng/mL (09/05/2024, 9:50am). MRSA nares PCR negative (09/05/2024, 2:00pm). BIOFIRE respiratory PCR panel (09/05/2024, 10:16am): Rhinovirus+/enterovirus+ U/A (09/05/2024, 11:19am): cloudy yellow, blood 3+ with RBC > 20, LE trace, nitrite-, WBC 0-5, bacteria 0, epithelial cells 0 Blood culture #1 (09/05/2024, 11:37am): Blood culture #2 (09/05/2024, 11:47am): TSH 1.863 uIU/mL (09/05/2024, 9:50am). INR 1.1 (09/05/2024, 9:50am). Troponin-I #1 37.8 pg/mL (, 9:50am). Troponin-I #1 38.5 pg/mL (09/05/2024, 11:47am). Troponin-I #2 69.2 pg/mL (09/05/2024, 2:13pm). Additional testing in [facility] ER included: Portable CXR (09/05/2024, 10:01am): LLL infiltrate. No effusion, cardiomegaly, pulmonary vascular congestion, or pneumothorax (by my review). CT brain without contrast (09/05/2024, 10:01am): No acute bleed, mass, or midline shift. Left hip x-ray (09/05/2024, 10:01am): Left hip prosthesis shows no hardware complication. No fracture or dislocation. There are moderate degenerative changes at the right hip and lower lumbar spine. Patient was subsequently admitted to the inpatient hospitalist service @ [facility] on 09/05/2024 with the following diagnoses: 1. Severe sepsis, without septic shock, of unclear etiology, in the setting of acute rhinoviral/enteroviral LLL CAP. R/O gram negative narciso-associated bacteremia. R/O right gluteal wound infection. 2. Acute toxic metabolic encephalopathy, most likely due to severe sepsis. 3. Acute traumatic rhabdomyolysis with admission creatinine CK 4,836 U/L (09/05/2024, 9:50am). 4. Acute kidney injury with admission creatinine creatinine 1.98, GFR 32.3 mL/min (09/05/2024, 9:50am). 5. Acute hypovolemic hyponatremia with admission Na 134 mmol/L (09/05/2024, 9:50am). 6. Acute lactic acid elevation with admission lactic acid #1 2.4 mmol/L (09/05/2024, 9:50am). 7. Acute ambulatory dysfunction, superimposed on chronic ambulatory dysfunction utilizing walker at home alone. 8. Acute type II NSTEMI with admission troponin-I #1 37.8 pg/mL (, 9:50am). To address #1, patient was started on ceftriaxone 2g IV x 1 dose (09/05/2024, 11:58am) in [facility] ER bed #C10. Patient will continue with ceftriaxone 2g IV daily x 6 doses (starting on 09/06/2024, 9:00am) in [facility] PCU bed #E208-1. I will check vitals, chest exam, WBC w/diff, lactic acid, procalcitonin, blood culture #1 (09/05/2024, 11:37am), and blood culture #2 (09/05/2024, 11:47am) in the 09/06/2024 am. Of note, patient does not appear to be in any respiratory distress and in fact, maintains a resting RR 16, O2 sat 99% on room air (09/05/2024, 9:40am). To address #2, patient was started on ceftriaxone 2g IV x 1 dose (09/05/2024, 11:58am) in [facility] ER bed #C10. Patient will continue with ceftriaxone 2g IV daily x 6 doses (starting on 09/06/2024, 9:00am[facility] I will check vitals, neuro exam, WBC w/diff, lactic acid, procalcitonin, blood culture #1 (09/05/2024, 11:37am), and blood culture #2 (09/05/2024, 11:47am) in the 09/06/2024 am. To address #3, patient was started on 2 liters of 0.9% NS @ 999 mL/hr (09/05/2024, 11:28am) in [facility] ER bed #C10. Patient will continue with 1 liter of 0.9% NS @ 61 mL/hr (09/05/2024, 6:41pm), based on a delivery rate of 1 mL of 0.9% NS per kg of body weight per hour, and a body weight of 60.6 kg, [facility] I will check repeat CK level in the 09/06/2024 am. To address #4, patient was started on 2 liters of 0.9% NS @ 999 mL/hr (09/05/2024, 11:28am) in [facility] ER bed #C10. Patient will continue with 1 liter of 0.9% NS @ 61 mL/hr (09/05/2024, 6:41pm), based on a delivery rate of 1 mL of 0.9% NS per kg of body weight per hour, and a body weight of 60.6 kg, [facility]. I will check repeat creatinine level in the 09/06/2024 am. To address #5, patient was started on 2 liters of 0.9% NS @ 999 mL/hr (09/05/2024, 11:28am) in [facility] ER bed #C10. Patient will continue with 1 liter of 0.9% NS @ 61 mL/hr (09/05/2024, 6:41pm), based on a delivery rate of 1 mL of 0.9% NS per kg of body weight per hour, and a body weight of 60.6 kg, in [facility] PCU bed #E208-1. I will check repeat Na level in the 09/06/2024 am. To address #6, patient was started on 2 liters of 0.9% NS @ 999 mL/hr (09/05/2024, 11:28am) in [facility] ER bed #C10. Patient will continue with 1 liter of 0.9% NS @ 61 mL/hr (09/05/2024, 6:41pm), based on a delivery rate of 1 mL of 0.9% NS per kg of body weight per hour, and a body weight of 60.6 kg, in [facility] PCU bed #E208-1. I will check repeat lactic acid level in the 09/06/2024 am. To address #7, patient awaits PT/OT Service evaluations in the 09/06/2024 am, to determine if patient is safe for D/C back to his home alone, or if patient may benefit from D/C to SNF for short-term rehab. To address #8, patient continues to be monitored on telemetry and will undergo serial troponin level trending to observe peak troponin level. No further testing is warranted as acute type II NSTEMI with nominal troponin elevation is attributed to demand ischemia, which in turn, is due to severe sepsis, without septic shock, of unclear etiology, in the setting of acute rhinoviral/enteroviral LLL CAP. Discharge Exam Constitutional General: Comfortable, cooperative, coherent. Wide awake and alert. Not confused, lethargic, or obtunded. Patient speaks in complete, fluent, and articulate sentences without pause, interruption, cough, or wheeze. HEENT: Normocephalic, atraumatic. Pupils equally round and reactive to light. No nystagmus, gaze paresis, anisocoria, miosis, mydriasis, hyphema, scleral injection, conjunctivitis, or pterygium. No otorrhea. No pharyngeal erythema, edema, or discharge. Neck: Supple, no stridor, bruit, goiter, or hepato-jugular reflux. Jugular venous pressure is estimated to be 3 cm above the sternal angle of Dandre, which in turn, is 5 cm above the level of the right atrium; with jugular venous pressure estimated to be 8 cm, then, there is no jugular venous distention on 09/10/2024. Lymphatics: No cervical (anterior/posterior), supraclavicular, infraclavicular, axillary, epitrochlear, or inguinal adenopathy. Chest: Symmetric rise and fall with respirations. Non-tender to palpation. Lungs: Clear to auscultation and percussion. No audible expiratory wheeze, egophony, pectoriloquy, increase in tactile fremitus, or flatness/dullness to percussion at the bases. Heart: RRR. S1 and S2 noted. No S3 or S4 summation gallop. No tripartite friction rub. Grade II/ early systolic murmur @ LLSB without radiation to the carotids, axilla, or back, and which remains invariant in regards to the respiratory cycle. Abdomen: Soft, non-tender, non-distended. No rebound, guarding, Selby's sign, or organomegaly. Bowel sounds auscultated in all 4 quadrants. Extremities: No clubbing, cyanosis, or edema in upper extremities or lower extremities bilaterally. 2+ pedal pulses bilaterally. Skin: Stage II right gluteal ulcer (of 1 week duration as per patient's granddaughter), ~10 cm diameter, solitary lesion, with surrounding erythema, but no edema, induration, warmth, tenderness, crepitus, fluctuance (sanguineous, serous, suppurative), malodor, or lymphangitic streaking. No exanthem or enanthem. Genito-urinary: No urethral discharge. No ross catheter. Neurology: No myoclonus, tremors, or tics. Psychiatry: No homicidal ideation. No suicidal ideation. No flat affect; smiles appropriately. Discharge Plan Discharge Items Patient Disposition: Home - Home Health Services Reason For Visit: SEPSIS DUE TO ACUTE LLL CAP Discharge Diagnosis: 1. Severe sepsis RESOLVED, without septic shock, of unclear etiology, in the setting of acute rhinoviral/enteroviral LLL CAP. R/O gram negative narciso- associated bacteremia. R/O right gluteal wound infection. 2. Acute toxic metabolic encephalopathy RESOLVED, most likely due to severe sepsis. 3. Acute traumatic rhabdomyolysis with admission creatinine CK 4,836 U/L (09/05/2024, 9:50am). RESOLVED with discharge CK 414 U/L (09/10/2024, 5:47am). 4. Acute kidney injury with admission creatinine creatinine 1.98, GFR 32.3 mL/min (09/05/2024, 9:50am). RESOLVED with discharge creatinine 1.27, GFR 55.0 mL/min (09/10/2024, 5:47am). 5. Acute hypovolemic hyponatremia with admission Na 134 mmol/L (09/05/2024, 9:50am). RESOLVED with discharge Na 137 mmol/L (09/10/2024, 5:47am). 6. Acute lactic acid elevation with admission lactic acid #1 2.4 mmol/L (09/05/2024, 9:50am). RESOLVED with discharge lactic acid 1.5 mmol/L (09/10/2024, 5:47am). 7. Acute ambulatory dysfunction, superimposed on chronic ambulatory dysfunction utilizing walker at home alone. RESOLVED with patient utilizing walker in hospital. 8. Acute type II NSTEMI with admission troponin-I #1 37.8 pg/mL (, 9:50am). Observe. 9. Stage II right gluteal ulcer (of 1 week duration as per patient's granddaughter), ~10 cm diameter, solitary lesion, with surrounding erythema, but no edema, induration, warmth, tenderness, crepitus, fluctuance (sanguineous, serous, suppurative), malodor, or lymphangitic streaking, present on admission date 09/05/2024. Continue Mepilex dry dressing daily. 10. DNR/DNI @ home. Condition on Discharge: Fair Activity: Resume your previous activity Lifting: Gradually increase as tolerated Bathing: No limitations Exercise/Sports: Gradually increase as tolerated Weightbearing: Full weightbearing Non-emergency contact: Primary Care Provider Call non-emergency contact if: you have any medication questions Follow-up/Referrals: Brea Etienne CRNP [Primary Care Provider] - Diet: Heart Healthy Addtl Attending Provider Instructions: See your PCP MATEO Lopez, within 5-7 days of hospital discharge for routine, follow up care. Pending Studies at Discharge: No Stand-Alone Forms: My [facility], Smoking Cessation Medications and DC Order Prescriptions: New cefdinir 300 mg capsule 300 mg PO BID Qty: 2 0RF Rx Instructions: Take 1 tablet by mouth with food on 09/11/2024, 9:00am. Take 1 tablet by mouth with food on 09/11/2024, 3:00pm. Continued BenGay Vanishing Scent 2.5 % gel 1 applic topical QID PRN (Reason: pain) acetaminophen [Tylenol Arthritis Pain] 650 mg tablet extended release 650 mg PO Q12H PRN (Reason: Pain) polyethylene glycol 3350 [Miralax] 17 gram/dose powder 17 g PO DAILY PRN (Reason: Constipation) hydrocortisone [Cortizone-10] 1 % cream 1 applic topical BID PRN (Reason: Itching) Discharge Orders: Discharge Order (Routine); Ordered 09/10/24 Ordered By: Jay Christian Admission Data Admit Date/Time: 09/05/24 13:20 Attending Provider: Jay Christian Admit Provider: Jay Christian Primary Care Provider: Brea Etienne Other Providers: Jay Christian; [facility],Hospital Hospital Stay Data Consultations 09/05/24 12:09 ED Decision to Admit Stat Diagnostic Imagining Performed 09/05/24 10:01 CT head/brain wo con Stat Pending Results Patient Have Any Pending Studies at Discharge: No Discharge Instructions Given to Patient (Per Discharging Provider) See your PCP MATEO Lopez, within 5-7 days of hospital discharge for routine, follow up care. Total Time Total Time Spent Total Time Spent (In Minutes): 35 minutes. Of this time period, 19 minutes were spent in coordinating patient's discharge. Coding Level of Care Code 19319 INP/OBS DISCH >30 MIN Diagnoses Sepsis A41.9 Toxic metabolic encephalopathy G92.8 Traumatic rhabdomyolysis T79.6XXA Acute kidney failure N17.9 Acute hyponatremia E87.1 Lactic acid blood increased R79.89 Ambulatory dysfunction R26.2 Demand ischemia I24.89
[2024-09-10 11:45] VITALS: BP 143/68; TEMP 98.4; O2SAT 97
[2024-09-10 14:42] VITALS: PULSE 72
== END 2024-09-10 15:45 | disposition home health service (06) | DRG 871 ==
LOC: ED 09:40 → 2E 13:20

== ENCOUNTER 2024-10-31 11:42 | Inpatient (IN) ==
--- NOTE | 2024-10-31 12:28 | XRay Report ---
XR chest 1V portable CLINICAL HISTORY: Sepsis. COMPARISON STUDY: Chest CT October 02, 2023. Chest radiograph September 30, 2024. FINDINGS: Emphysema is noted. There is no pneumothorax or pleural effusion. Skin folds project over t he left chest. Cardiomediastinal silhouette is stable. Lower lung opacities are present. IMPRESSION: 1. Lower lung opacities which may represent pneumonia. Radiographic follow-up to ensure resolution is recommended. 2. Emphysema. ACT 112: Negative or not required by law. Electronically signed by: Shad Farmer M.D. 10/31/2024 12:27 PM
[2024-10-31] MEDS: SODIUM CHLORIDE 0.9% 1,000 ML IV SCH (12:50)
[2024-10-31] MEDS: CEFEPIME 2000MG 2,000 MG/20 ML SYR IV STA (12:50)
[2024-10-31 12:52] LABS: Base Excess VBG 0.8 mEq/L; HCO3 VBG 26 mmol/L; Oxygen Saturation VBG < 60.0 %; PCO2 VBG 43 mmHg (38-50); PO2 VBG < 20 mmHg; pH VBG 7.39 (7.36-7.41)
[2024-10-31 12:53] LABS: Hematocrit (blood only) 30.7 % (42.0-52.0); Hemoglobin 9.8 g/dl (14.0-18.0); Mean Corpuscular Hemoglobin 35.8 pg (25.0-34.0); Mean Corpuscular Volume 112.0 fL (80.0-100.0); Platelet Count 108 K/uL (130-400); RDW Standard Deviation 75.4 fL (36.4-46.3); Red Blood Count 2.74 M/uL (4.70-6.10); White Blood Count 13.04 K/ul (4.8-10.8)
[2024-10-31 13:09] LABS: Appearance Urine Clear (Clear); Bacteria Urine Automated None Seen (None Seen); Cast Urine Automated 0-2 /lpf (0-2); Epithelial Cell Urine Auto 0-2 /hpf (0-2); Glucose Urine UA Negative (Negative); RBC Urine Automated 0-2 /hpf (0-2); WBC Urine Automated 0-5 /hpf (0-5)
[2024-10-31 13:20] LABS: Alanine Aminotransferase 8.0 U/L (7-52); Alkaline Phosphatase 63.0 U/L (34-104); Anion Gap 7.0 (3-11); Bilirubin,Total 0.7 mg/dl (0.2-1.0); Blood Urea Nitrogen 29.0 mg/dl (6-23); Calcium 9.0 mg/dl (8.6-10.3); Carbon Dioxide 24.0 mmol/L (21-32); Chloride 104.0 mmol/L (98-107); Creatinine Clr Calc Pharmacy 33.2 ml/min; Glucose 103.0 mg/dl (70-99(Fasting)); Magnesium 1.9 mg/dl (1.7-2.4); Potassium 4.0 mmol/L (3.5-5.1); Sodium 135.0 mmol/L (136-145); Total Protein 7.5 gm/dl (6.0-8.3)
[2024-10-31 13:21] LABS: Acanthocytes 1+; INR 1.0 (0.9-1.1); Immature Granulocytes # (auto) 0.14 K/uL (0.01-0.20); Immature Granulocytes % (auto) 1.1 %; Macrocytosis Present; Partial Thromboplastin Time 25 Seconds (21-31); Polychromasia 1+; Prothrombin Time 11.3 Seconds (9.0-12.0)
--- NOTE | 2024-10-31 13:24 | CT Scan Report ---
CT SCAN OF THE BRAIN WITHOUT IV CONTRAST CLINICAL HISTORY: Change in mental status. COMPARISON STUDY: CT of the brain dated 09/30/2024. TECHNIQUE: Unenhanced axial CT scan of the brain is performed from the vertex to the skull base. Imag es are reviewed in the axial, sagittal, coronal planes. A dose lowering technique was utilized adheri ng to the principles of ALARA. The patient was scanned twice due to motion artifact. CT DOSE: 1250.21 mGy.cm FINDINGS: Brain parenchyma: There is age-related involutional change noting [id number] subcortical and pe riventricular microangiopathic disease. There is no hemorrhage, mass effect, or evidence of acute ter ritorial ischemia by CT criteria. Hurtado-white matter differentiation is preserved. No extra-axial flui d collection is seen. Ventricles, sulci, cisterns: Prominent secondary to involutional change. Intracranial vasculature: There is atherosclerotic calcification of the cavernous carotid and vertebr al arteries. Calvarium: Unremarkable. Sinuses and mastoids: The paranasal sinuses are clear. The mastoid air cells are well pneumatized. Orbits: The bony orbits are grossly intact. There are bilateral ocular lens implants. IMPRESSION: There is no hemorrhage, mass effect, or evidence of acute territorial ischemia by CT akshat beard. ACT 112: Negative or not required by law. Electronically signed by: Preston Mccloud M.D. 10/31/2024 1:23 PM
--- NOTE | 2024-10-31 14:08 | Emergency Department Note ---
Impression & Plan Acute confusion, Pneumonia, Leukocytosis, Anemia ED Provider Note NAME: DILIP MUELLER AGE: 84 SEX: M : 1940 ARRIVES VIA: Ambulance INFORMANT: [Patient][family, ems] ED PROVIDER(S): [Preston Teague MD] CHIEF COMPLAINT: Altered mental state HISTORY OF PRESENT ILLNESS: The patient is an 84-year-old male who was noticed to be weak and a bit confused yesterday, things have markedly worsened today. The patient had a similar presentation just over a month ago and he was quite septic at the time. The patient does not have any current complaints but he is a very poor historian. As per his family who is at bedside, he was weak and confused. There was no fever, no cough or congestion. He had no complaints of pain. No recent fall. The weakness was diffuse, not one-sided. PMHx/PSHx/Social Hx: See Below PHYSICAL EXAM: GENERAL: Patient is in no acute distress. HEENT: No acute trauma, normocephalic atraumatic, mucous membranes moist, no nasal congestion. NECK: No stridor, no adenopathy, no meningismus, trachea is midline. LUNGS: Clear to auscultation bilaterally when listening anterior, no wheeze, no rhonchi, breath sounds equal. No respiratory distress. HEART: Without murmurs gallops or rubs, regular rate and rhythm. ABDOMEN: Soft, nontender, no peritonitis. EXTREMITIES: No cyanosis, full range of motion of all the joints without pain or difficulty. NEUROLOGIC: Awake, confused, moves all extremities. SKIN: No jaundice, no diaphoresis. DIFFERENTIAL DIAGNOSIS: Bacteremia or sepsis, intracranial bleeding, renal or liver failure, medication reaction, among others. EMERGENCY DEPARTMENT PROCEDURES: MEDICAL DECISION MAKING: There is a mild leukocytosis, this could be consistent with infection. The patient is anemic however, this is a chronic issue. Platelet count is low, this is also a chronic issue. No coagulopathy. No acidosis or CO2 retention by VBG. The creatinine is elevated consistent with some dehydration and renal insufficiency. No electrolyte abnormality in need of emergent correction. Lactic acid level is not elevated making sepsis less likely. No concerning liver enzyme elevation. Ammonia level was not elevated. ECG shows a sinus rhythm, no obvious ST elevation. Cardiac enzyme testing is somewhat elevated, this elevation could be from cardiac injury or mismatch from his infection. Urinalysis does not show findings of infection. Anaplasmosis and Babesia smears were negative. Lyme disease testing was negative. Brain CT shows no acute bleed or mass effect. Chest x-ray shows what appears to be a bilateral lower lung pneumonia. On exam, the patient was confused. He was not febrile. At times, his blood pressure was borderline low in the range of 100 systolic. Patient received IV saline. He received 2250 cc of saline, this should qualify for 30 cc/kg of saline per sepsis protocol based on his actual body weight. He received IV cefepime as antibiotic coverage. On reassessment, the patient's blood pressure is improved, he is not in need of IV pressors. I did speak with the patient and the family. Given the confusion, the pneumonia, the leukocytosis and the borderline hypotension, admission is warranted. He is at risk for sepsis. I did speak with case management, the on-call hospitalist was consulted. Prior/Outside records/notes reviewed: Today's EMS notes describing his presentation and transport to this hospital. ECG per my interpretation: Indication was possible sepsis. The ECG shows a normal sinus rhythm with a rate of 95. There is some baseline artifact. There is no acute ST elevation, no PVCs. The QTc is 447. Continuous Cardiac Monitoring per my interpretation: An order was placed for continuous cardiac monitoring. The monitor shows a rate of 94 with normal sinus rhythm. Imaging/x-ray results per my interpretation: Chest x-ray shows what appears to be a basilar pneumonia, worse on the right. No CHF. Chronic Medical/Social conditions affecting care: Advanced age. Care/Management discussed with: Case management, the on-call hospitalist. 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 plan for continued observation Elevated C-reactive protein (CRP) BPH (benign prostatic hyperplasia) Duodenal ulcer hx - medically managed long term (current) use of non-steroidal anti-inflammatories (nsaid) Cervical spine arthritis (Chronic) Headache Osteopenia Carotid atherosclerosis Vitamin D deficiency Neuropathy of left upper extremity Arthritis of both hands Pulmonary nodule Under surveillance , pt declines another f/u CT Allergic rhinitis Acid reflux disease No current medications Hypertension (Chronic) Hx of taking amlodipine - no longer taking. BP stable recently. Medical History Demand ischemia Ambulatory dysfunction Traumatic rhabdomyolysis Toxic metabolic encephalopathy Enterovirus infection Rhinovirus infection Elevated lactic acid level Elevated procalcitonin Elevated CK Generalized weakness ALYSON (acute kidney injury) Sepsis Borderline high blood pressure no meds Arthritis Hx of bladder cancer Chronic anemia Hx of duodenal ulcer Hearing loss Surgical History History of total left hip arthroplasty History of cystoscopy History of total hip arthroplasty H/O transurethral resection of prostate H/O eye surgery History of cataract surgery History of esophageal dilatation History of esophagogastroduodenoscopy (EGD) History of colonoscopy S/P tooth extraction S/P bladder tumor excision with fulguration Family History Brother Cancer Brother Cancer Father No problems noted. Mother No problems noted. Other No family history of adverse response to anesthesia Denies family history of Ovarian cancer Prostate cancer Myocardial infarction Breast cancer Colorectal cancer Social History Smoking Status: Unknown if ever smoked Tobacco Type: Cigarettes Age Started Using Tobacco: 14; Age Quit Using Tobacco: 24; packs per day: 1; Cigarettes Per Day: 15-20; Second Hand Exposure: No; Do You Dip or Chew Tobacco: No; Hx Alcohol Use: No Hx Substance Use: No Preferred Language: Iranian Communication Ability: Effective Communication Ability Comment: confusion Visual Impairment: Limited Hearing Ability: Use of Hearing Aid Pillowcase Turner Required: No Beliefs That Will Affect Care: None marital status: / Current Living Situation: Alone Current Living Situation Comment: lives with granddaughter current occupational status: retired How many Children do You have: 2 Feels Safe at Home: Yes Childhood Exposure to Second-Hand Smoke: Yes Diet: regular caffeine: Yes during the past year weight has: remained stable Dental Care, Regularly: No Physical Activity Frequency: Daily Physical Activity Frequency Comment: walking Seatbelt Use: always Sunscreen Use: Yes Do you think of yourself as: straight/heterosexual Sexual Activity: has been sexually active, but not for at least 12 months Gender Identity: Male Assistive Devices: Cane and Walker Allergies Allergies Allergy/AdvReac Type Severity Reaction Status Date / Time trazodone AdvReac Mild anxious, Verified 10/04/24 10:08 jittery Home Meds Home Medications Medication Instructions Recorded Confirmed menthol 2.5 % topical gel (BenGay 1 applic topical QID PRN pain 09/22/22 10/31/24 Vanishing Scent) acetaminophen 650 mg 650 mg PO Q12H PRN Pain 02/17/23 10/31/24 tablet,extended release (Tylenol Arthritis Pain) hydrocortisone 1 % topical cream 1 applic topical BID PRN Itching 02/17/23 10/31/24 (Cortizone-10) polyethylene glycol 3350 17 17 g PO DAILY PRN Constipation 02/17/23 10/31/24 gram/dose oral powder (Miralax) silver sulfadiazine 1 % topical 1 applic topical UD 10/31/24 10/31/24 cream (Silvadene) Results & Data (ED) Vital Signs Vital Signs - 24 hr 10/31/24 11:52 10/31/24 11:59 10/31/24 12:00 Temperature Temperature Source Pulse Rate 86 91 H 86 Pulse Rate from SpO2 Sensor Respiratory Rate 17 20 Blood Pressure 150/71 H 137/63 Blood Pressure Mean 73 73 Pulse Oximetry 93 96 Oxygen Delivery Method Room Air Room Air Sepsis Recent Fever Within 48 Hours Sepsis New/Unexplained Change in Mental Status Sepsis Action Taken by Nursing 10/31/24 12:22 10/31/24 13:30 10/31/24 13:33 Temperature 37.1 C Temperature Source Oral Pulse Rate 96 H 86 94 H Pulse Rate from SpO2 Sensor 94 H Respiratory Rate 19 18 24 Blood Pressure 150/71 H 137/61 Blood Pressure Mean 97 74 Pulse Oximetry 92 96 96 Oxygen Delivery Method Room Air Room Air Sepsis Recent Fever Within 48 Hours No Sepsis New/Unexplained Change in Mental Status Yes Sepsis Action Taken by Nursing No Action Required 10/31/24 13:42 10/31/24 13:45 10/31/24 13:45 Temperature Temperature Source Pulse Rate 94 H Pulse Rate from SpO2 Sensor 94 H Respiratory Rate 22 Blood Pressure 100/59 L 100/59 L Blood Pressure Mean 67 67 Pulse Oximetry 95 Oxygen Delivery Method Sepsis Recent Fever Within 48 Hours Sepsis New/Unexplained Change in Mental Status Sepsis Action Taken by Nursing 10/31/24 14:00 10/31/24 14:16 10/31/24 14:31 Temperature Temperature Source Pulse Rate 92 H 90 102 H Pulse Rate from SpO2 Sensor Respiratory Rate 24 15 19 Blood Pressure 143/68 H 128/98 149/74 H Blood Pressure Mean 107 107 102 Pulse Oximetry 94 94 95 Oxygen Delivery Method Room Air Room Air Room Air Sepsis Recent Fever Within 48 Hours Sepsis New/Unexplained Change in Mental Status Sepsis Action Taken by Nursing 10/31/24 14:46 Temperature Temperature Source Pulse Rate 102 H Pulse Rate from SpO2 Sensor Respiratory Rate 19 Blood Pressure 140/89 Blood Pressure Mean 116 Pulse Oximetry 96 Oxygen Delivery Method Room Air Sepsis Recent Fever Within 48 Hours Sepsis New/Unexplained Change in Mental Status Sepsis Action Taken by [facility] Medications Current Medication List: was personally reviewed by me Laboratory Data Attestation: I reviewed the patient's lab results. 10/31/24 12:27 10/31/24 12:27 Lab Results 10/31/24 10/31/24 10/31/24 Range/Units 12:27 12:35 12:49 WBC 13.04 H (4.8-10.8) K/ul RBC 2.74 L (4.70-6.10) M/uL Hgb 9.8 L (14.0-18.0) g/dl Hct 30.7 L (42.0-52.0) % MCV 112.0 H (80.0-100.0) fL MCH 35.8 H (25.0-34.0) pg MCHC 31.9 L (32.0-36.0) g/dL RDW Std Deviation 75.4 H (36.4-46.3) fL RDW Coeff of [place] 18.2 H (11.5-14.5) % Plt Count 108 L (130-400) K/uL MPV 9.4 (9.4-12.4) fL Immature Gran % (Auto) 1.1 % Neut % (Auto) 79.3 % Lymph % (Auto) 1.9 % [place] % (Auto) 17.6 % Eos % (Auto) 0.0 % Baso % (Auto) 0.1 % Neut # (Auto) 10.34 H (1.40-6.50) K/uL Lymph # (Auto) 0.25 L (1.20-3.40) K/uL [place] # (Auto) 2.30 H (0.11-0.59) K/uL Eos # (Auto) 0.00 (0.00-0.50) K/uL Baso # (Auto) 0.01 (0.00-0.20) K/uL Immature Gran # (Auto) 0.14 (0.01-0.20) K/uL Polychromasia 1+ Macrocytosis Present Acanthocytes (Spur) 1+ PT 11.3 (9.0-12.0) Seconds INR 1.0 (0.9-1.1) APTT 25 (21-31) Seconds PTT Ratio 0.9 VBG pH 7.39 (7.36-7.41) VBG pCO2 43 (38-50) mmHg VBG pO2 < 20 mmHg VBG HCO3 26 mmol/L VBG O2 Saturation < 60.0 % VBG Base Excess 0.8 mEq/L Sodium 135 L (136-145) mmol/L Potassium 4.0 (3.5-5.1) mmol/L Chloride 104 (98-107) mmol/L Carbon Dioxide 24 (21-32) mmol/L Anion Gap 7 (3-11) BUN 29 H (6-23) mg/dl Creatinine 1.53 H (0.6-1.4) mg/dl Est Cr Clr Drug Dosing 33.2 ml/min eGFR 44.00 BUN/Creatinine Ratio 19.0 (10-20) Glucose 103 H (70-99(Fasting)) mg/dl POC Glucose 110 H (70-99) mg/dl Lactate 1.7 (0.4-2.0) mmol/L Calcium 9.0 (8.6-10.3) mg/dl Magnesium 1.9 (1.7-2.4) mg/dl Total Bilirubin 0.7 (0.2-1.0) mg/dl Direct Bilirubin 0.2 (0-0.2) mg/dl AST 17 (13-39) U/L ALT 8 (7-52) U/L Alkaline Phosphatase 63 (34-104) U/L Ammonia 14.0 L (18-72) umol/L Troponin I High Sens 38.7 H (0-20) pg/ml Total Protein 7.5 (6.0-8.3) gm/dl Albumin 3.8 (3.4-5.0) gm/dl Procalcitonin 0.27 (0-0.5) ng/ml Urine Color Urine Appearance (Clear) Urine pH (4.5-7.5) Ur Specific [place] (1.000-1.030) Urine Protein (Negative) Urine Glucose (UA) (Negative) Urine Ketones (Negative) Urine Blood (Negative) Urine Nitrite (Negative) Urine Bilirubin (Negative) Urine Urobilinogen (Negative) Ur Leukocyte Esterase (Negative) Urine WBC (Auto) (0-5) /hpf Urine RBC (Auto) (0-2) /hpf U Hyaline Cast (Auto) (0-2) /lpf U Epithel Cells (Auto) (0-2) /hpf Urine Bacteria (Auto) (None Seen) Urine Comment Anaplasma Smear See Comment Babesia Smear See Comment Lyme Disease Screen Negative (Negative) 10/31/24 10/31/24 Range/Units 12:50 14:16 WBC (4.8-10.8) K/ul RBC (4.70-6.10) M/uL Hgb (14.0-18.0) g/dl Hct (42.0-52.0) % MCV (80.0-100.0) fL MCH (25.0-34.0) pg MCHC (32.0-36.0) g/dL RDW Std Deviation (36.4-46.3) fL RDW Coeff of [place] (11.5-14.5) % Plt Count (130-400) K/uL MPV (9.4-12.4) fL Immature Gran % (Auto) % Neut % (Auto) % Lymph % (Auto) % [place] % (Auto) % Eos % (Auto) % Baso % (Auto) % Neut # (Auto) (1.40-6.50) K/uL Lymph # (Auto) (1.20-3.40) K/uL [place] # (Auto) (0.11-0.59) K/uL Eos # (Auto) (0.00-0.50) K/uL Baso # (Auto) (0.00-0.20) K/uL Immature Gran # (Auto) (0.01-0.20) K/uL Polychromasia Macrocytosis Acanthocytes (Spur) PT (9.0-12.0) Seconds INR (0.9-1.1) APTT (21-31) Seconds PTT Ratio VBG pH (7.36-7.41) VBG pCO2 (38-50) mmHg VBG pO2 mmHg VBG HCO3 mmol/L VBG O2 Saturation % VBG Base Excess mEq/L Sodium (136-145) mmol/L Potassium (3.5-5.1) mmol/L Chloride (98-107) mmol/L Carbon Dioxide (21-32) mmol/L Anion Gap (3-11) BUN (6-23) mg/dl Creatinine (0.6-1.4) mg/dl Est Cr Clr Drug Dosing ml/min eGFR BUN/Creatinine Ratio (10-20) Glucose (70-99(Fasting)) mg/dl POC Glucose (70-99) mg/dl Lactate (0.4-2.0) mmol/L Calcium (8.6-10.3) mg/dl Magnesium (1.7-2.4) mg/dl Total Bilirubin (0.2-1.0) mg/dl Direct Bilirubin (0-0.2) mg/dl AST (13-39) U/L ALT (7-52) U/L Alkaline Phosphatase (34-104) U/L Ammonia (18-72) umol/L Troponin I High Sens 45.5 H (0-20) pg/ml Total Protein (6.0-8.3) gm/dl Albumin (3.4-5.0) gm/dl Procalcitonin (0-0.5) ng/ml Urine Color Yellow Urine Appearance Clear (Clear) Urine pH 7.5 (4.5-7.5) Ur Specific [place] 1.011 (1.000-1.030) Urine Protein Trace H (Negative) Urine Glucose (UA) Negative (Negative) Urine Ketones Negative (Negative) Urine Blood Trace H (Negative) Urine Nitrite Negative (Negative) Urine Bilirubin Negative (Negative) Urine Urobilinogen Negative (Negative) Ur Leukocyte Esterase Negative (Negative) Urine WBC (Auto) 0-5 (0-5) /hpf Urine RBC (Auto) 0-2 (0-2) /hpf U Hyaline Cast (Auto) 0-2 (0-2) /lpf U Epithel Cells (Auto) 0-2 (0-2) /hpf Urine Bacteria (Auto) None Seen (None Seen) Urine Comment Anaplasma Smear Babesia Smear Lyme Disease Screen (Negative) Administered Medications Discontinued Medications Sodium Chloride (Nss) 1,000 mls @ 999 mls/hr IV .Q1H1M [place] Stop: 10/31/24 13:00 Last Admin: 10/31/24 12:50 Dose: 999 mls/hr Documented By: CAP Cefepime HCl (Maxipime 2000mg) 2,000 mg in 20 mls @ 5 mls/min IV NOW STA; Protocol Stop: 10/31/24 11:58 Last Admin: 10/31/24 12:50 Dose: 5 mls/min Documented By: CAP Sodium Chloride (Nss) 1,000 mls @ 999 mls/hr IV .Q1H1M ONE Stop: 10/31/24 15:01 Last Admin: 10/31/24 14:15 Dose: 999 mls/hr Documented By: [facility] Sodium Chloride (Nss) 250 mls @ 999 mls/hr IV .Q16M ONE Stop: 10/31/24 14:16 Last Admin: 10/31/24 14:18 Dose: 999 mls/hr Documented By: [facility] Imaging Data Radiologist's Impression: Chest X-Ray 10/31/24 11:55 XR chest 1V portable CLINICAL HISTORY: Sepsis. COMPARISON STUDY: Chest CT October 02, 2023. Chest radiograph September 30, 2024. FINDINGS: Emphysema is noted. There is no pneumothorax or pleural effusion. Skin folds project over the left chest. Cardiomediastinal silhouette is stable. Lower lung opacities are present. IMPRESSION: 1. Lower lung opacities which may represent pneumonia. Radiographic follow-up to ensure resolution is recommended. 2. Emphysema. ACT 112: Negative or not required by law. Electronically signed by: Shad Farmer M.D. 10/31/2024 12:[address] 10/31/24 11:55 CT SCAN OF THE BRAIN WITHOUT IV CONTRAST CLINICAL HISTORY: Change in mental status. COMPARISON STUDY: CT of the brain dated 09/30/2024. TECHNIQUE: Unenhanced axial CT scan of the brain is performed from the vertex to the skull base. Images are reviewed in the axial, sagittal, coronal planes. A dose lowering technique was utilized adhering to the principles of ALARA. The patient was scanned twice due to motion artifact. CT DOSE: 1250.21 mGy.cm FINDINGS: Brain parenchyma: There is age-related involutional change noting [id number] subcortical and periventricular microangiopathic disease. There is no hemorrhage, mass effect, or evidence of acute territorial ischemia by CT criteria. Hurtado-white matter differentiation is preserved. No extra-axial fluid collection is seen. Ventricles, sulci, cisterns: Prominent secondary to involutional change. Intracranial vasculature: There is atherosclerotic calcification of the cavernous carotid and vertebral arteries. Calvarium: Unremarkable. Sinuses and mastoids: The paranasal sinuses are clear. The mastoid air cells are well pneumatized. Orbits: The bony orbits are grossly intact. There are bilateral ocular lens implants. IMPRESSION: There is no hemorrhage, mass effect, or evidence of acute territorial ischemia by CT criteria. ACT 112: Negative or not required by law. Electronically signed by: Preston Mccloud M.D. 10/31/2024 1:23 PM Discharge Plan Visit Data Chief Complaint: Altered Mental Status Stated Complaint: AMS ED Provider: Preston Teague Discharge Problem: Acute confusion, Pneumonia, Leukocytosis, Anemia Patient Disposition: Admitted As Inpatient Condition: Fair Forms Stand Alone Forms: My [facility] Prescriptions Prescriptions: No Action BenGay Vanishing Scent 2.5 % gel 1 applic topical QID PRN (Reason: pain) Patient Comments: 10/31- otc unable to verify acetaminophen [Tylenol Arthritis Pain] 650 mg tablet extended release 650 mg PO Q12H PRN (Reason: Pain) Patient Comments: 10/31- otc unable to verify polyethylene glycol 3350 [Miralax] 17 gram/dose powder 17 g PO DAILY PRN (Reason: Constipation) Patient Comments: 10/31- otc unable to verify hydrocortisone [Cortizone-10] 1 % cream 1 applic topical BID PRN (Reason: Itching) Patient Comments: 10/31- otc unable to verify silver sulfadiazine [Silvadene] 1 % cream 1 applic topical UD Patient Comments: filled 10/04 14 day supply Rx Instructions: apply a 1.5 mm thickness Referrals Referrals: Brea Etienne CRNP [Primary Care Provider] - Discharge Problem: Pneumonia Qualifiers: Pneumonia type: due to unspecified organism Laterality: bilateral Lung location: lower lobe of lung Qualified Code(s): J18.9 - Pneumonia, unspecified organism Leukocytosis Qualifiers: Leukocytosis type: unspecified Qualified Code(s): D72.829 - Elevated white blood cell count, unspecified Anemia Qualifiers: Anemia type: unspecified type Qualified Code(s): D64.9 - Anemia, unspecified
[2024-10-31] MEDS: SODIUM CHLORIDE 0.9% 1,000 ML IV ONE (14:15)
[2024-10-31] MEDS: SODIUM CHLORIDE 0.9% 250 ML IV ONE (14:18)
--- NOTE | 2024-10-31 14:21 | History & Physical Report ---
Date of Service October 31, 2024 Assessment & Plan (1) Pneumonia: (2) Acute confusion: (3) Altered mental status: (4) Anemia: (5) MDS (myelodysplastic syndrome): (6) Pressure ulcer: (7) Elevated troponin: (8) Acute metabolic encephalopathy: Plan This patient is an 84-year-old male who presented on 10/31 for altered mental status. This is suspected to be due to an acute infection (likely pneumonia). UA negative. #Pneumonia Leukocytosis at 13.04 Bilateral lower lung opacities noted on CXR which might represent pneumonia Blood cultures drawn Cefepime 2000 IV x 1 in the ED Ceftriaxone 2000 g IV q24h Azithromycin 500 mg IV q24h; QTc okay at 447 #Altered mental status Head CT without acute findings No slurred speech, facial droop, or unilateral deficits to suggest stroke Suspect altered status due to pneumonia/acute infection #Episode of diarrhea followed by constipation KUB revealed significant constipation ? Fecal impaction A/P CT with contrast ordered to r/o diverticulitis v colitis Given mild ALYSON, will place on NSS following procedure #Stage II sacral ulcer Noted on arrival Not infected appearing on clinical exam; no purulent drainage appreciated Granddaughter denies prior history of MRSA infections Wound care nurse consult appreciated Daily wound care #Mild ALYSON Creatinine mildly elevated at 1.53 (baseline 1.27) Monitor; trend a.m. BMP #Elevated troponin Troponin 38->45 on arrival Clinically, patient denies chest pain, but is a poor historian at this time EKG revealed NSR at 95 bpm without ischemic changes appreciated from prior Continuous telemetry monitoring #Anemia | myelodysplastic syndrome [facility]rit [facility] every 2 weeks Hgb 9.8 on arrival Granddaughter does report that last injection was on Saturday 10/28 She also had an injection 3 days prior to his last hospitalization; ? Unclear if contributory [facility]: Lovenox 40 mg SQ q24h History of Present Illness Chief Complaint: Altered mental status Primary Care Provider: MATEO Rodriguez Mr. Viera is an 84-year-old male with PMH of primary bladder cancer, BPH, cervical spine arthritis, HTN, and GERD. He presented on 10/31 via EMS for altered mental status. Patient is a poor historian at this time, and history is obtained from patient's granddaughter (Kimberly) at bedside. Patient is not alert and oriented to name, , location, or purpose in the hospital. However, he denies any pain or respiratory distress at this time. Patient has been living with his granddaughter ever since he got out of the hospital in September for severe sepsis, acute toxic metabolic encephalopathy suspect secondary to entero-/rhinovirus. Granddaughter first noticed confusion yesterday evening. Then when the patient slept then, she noticed he was not oriented this morning. She reports he is usually "sharp". She took his temperature, and it was 99.5 F. She reports no upper respiratory symptoms such as cough, or complaints of difficulty breathing. He did have an episode of diarrhea a couple days ago, but took liquid IV, and reports that he felt better. No recent antibiotic use since leaving the hospital. He does have a sacral ulcer, but the granddaughter has been monitoring it, and denies any drainage from the site. Applying cream to it daily patient does get Procrit injections every [address] [facility] for his MDS. Last injection was on Saturday 10/28. Granddaughter notes that the patient felt "unwell" just prior to his last admission several days after getting this injection, and is unsure if the 2 are related. Granddaughter denies any strokelike symptoms such as slurred speech, facial droop, unilateral deficits. 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 Patient is a former tobacco cigarette smoker, but granddaughter reports he quit ~50 years ago. Patient is hypotensive at 100/59 and mildly tachycardic around 94 bpm at time of admission; vitals otherwise stable. ED course: Cefepime 2000 mg IV NSS 1000 mg IV x 2 Unable to obtain ROS at this time. Allergies Allergy/AdvReac Type Severity Reaction Status Date / Time trazodone AdvReac Mild anxious, Verified 10/04/24 10:08 jittery Home Medications Medication Instructions Recorded Confirmed Type acetaminophen 650 mg 650 mg PO Q12H PRN Pain 02/17/23 11/06/24 History tablet,extended release (Tylenol Arthritis Pain) polyethylene glycol 3350 17 17 g PO DAILY PRN Constipation 02/17/23 11/06/24 History gram/dose oral powder (Miralax) azithromycin 500 mg tablet 500 mg PO DAILY 5 days #5 tabs 11/05/24 11/06/24 Rx Past Med/Surg History Problem List (Updated 11/06/24 @ 20:37 by Freddy Christy MD) Acute metabolic encephalopathy Acute kidney injury Elevated troponin Pressure ulcer MDS (myelodysplastic syndrome) Altered mental status Anemia (Acute) Leukocytosis (Acute) Pneumonia (Acute) Acute confusion (Acute) Confusion Secondary osteoarthritis of right shoulder due to rotator cuff arthropathy Cervical facet joint syndrome Left knee DJD Constipation Urethral stricture History of primary bladder cancer Osteoarthritis Lumbar spondylosis Lumbar radiculopathy Degenerative joint disease of right hip Right knee DJD Complex renal cyst Insomnia Hydronephrosis of left kidney Macrocytic anemia (Chronic) Chronic leukopenia and macrocytic anemia under surveillance by [facility]CP heme/onc- possible myelodysplastic syndrome but not plan for further testing/evaluation at this time per heme/onc.. 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 BP stable recently. Medical History Demand ischemia Ambulatory dysfunction Traumatic rhabdomyolysis Toxic metabolic encephalopathy Enterovirus infection Rhinovirus infection Elevated lactic acid level Elevated procalcitonin Elevated CK Generalized weakness ALYSON (acute kidney injury) Sepsis Borderline high blood pressure no meds Arthritis Hx of bladder cancer Chronic anemia Hx of duodenal ulcer Hearing loss Surgical History History of total left hip arthroplasty History of cystoscopy History of total hip arthroplasty H/O transurethral resection of prostate H/O eye surgery History of cataract surgery History of esophageal dilatation History of esophagogastroduodenoscopy (EGD) History of colonoscopy S/P tooth extraction S/P bladder tumor excision with fulguration Family History Brother Cancer Brother Cancer Father No problems noted. Mother No problems noted. Other No family history of adverse response to anesthesia Denies family history of Ovarian cancer Prostate cancer Myocardial infarction Breast cancer Colorectal cancer Social History Smoking Status: Unknown if ever smoked Tobacco Type: Cigarettes Age Started Using Tobacco: 14; Age Quit Using Tobacco: 24; packs per day: 1; Cigarettes Per Day: 15-20; Second Hand Exposure: No; Do You Dip or Chew Tobacco: No; Hx Alcohol Use: No Hx Substance Use: No Preferred Language: Vietnamese Communication Ability: Impaired Communication Ability Comment: confusion Visual Impairment: Limited Hearing Ability: Use of Hearing Aid Certified Ophthalmic Technologist Required: No Beliefs That Will Affect Care: None marital status: / Current Living Situation: Family Current Living Situation Comment: lives with granddaughter current occupational status: retired How many Children do You have: 2 Feels Safe at Home: Yes Childhood Exposure to Second-Hand Smoke: Yes Diet: regular caffeine: Yes during the past year weight has: remained stable Dental Care, Regularly: No Physical Activity Frequency: Daily Physical Activity Frequency Comment: walking Seatbelt Use: always Sunscreen Use: Yes Do you think of yourself as: straight/heterosexual Sexual Activity: has been sexually active, but not for at least 12 months Gender Identity: Male Assistive Devices: Cane and Walker Review of Systems Review of Systems: See HPI above Physical Exam Physical Exam: General: no acute distress; non-toxic appearing; well-nourished; cooperative; SpO2 95% on RA HEENT: normocephalic, atraumatic; no scleral icterus; PERRLA w/ EOMs intact; vision intact; patient appears confused and does not protrude and wiggle tongue when requested Neck: supple; no lymphadenopathy; trachea midline Skin: warm, dry without signs of tenting; no cyanosis; no rashes, bruising, lesions, or erythema noted CV: chest wall NTP; RRR; S1/S2 normal; no murmurs/rubs/gallops; pulses intact and symmetric at radial, DP, and PT Lungs: no acute respiratory distress; symmetrical chest wall expansion; clear breath sounds across all lung singletary w/o adventitious sounds; no wheezing ABD: Soft, NTP; BS present; no rebound/guarding; no distention MSK: no tics or fasciculations; no edema noted in the LEs b/l, nonerythematous; patient exhibits confusion and has difficulty gripping his hands when asked, 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 Back: Lower spine NTP; patient does exhibit a stage II sacral ulcer without purulent drainage or erythema to suggest acute infection Neuro: Oriented to name, , location, or purpose in the hospital; does not respond to all questions; flat mood and affect; fluent speech on occasion; no slurred speech or facial droop appreciated; patient reports sensation is intact and symmetric in the upper and lower extremities bilaterally Results & Data Results & Data Vital Signs (Past 12 Hours) Vital Signs Temp Pulse Resp BP Pulse Ox O2 Del Method 10/31/24 13:45 100/59 L 10/31/24 13:45 100/59 L 10/31/24 13:42 94 H 22 95 10/31/24 13:33 94 H 24 96 10/31/24 13:30 86 18 137/61 96 Room Air 10/31/24 12:22 37.1 C 96 H 19 150/71 H 92 Room Air 10/31/24 12:00 86 20 137/63 96 Room Air 10/31/24 11:59 91 H 10/31/24 11:52 86 17 150/71 H 93 Room Air Laboratory Results Abnormal lab results 10/31/24 10/31/24 10/31/24 Range/Units 12:27 12:35 12:49 WBC 13.04 H (4.8-10.8) K/ul RBC 2.74 L (4.70-6.10) M/uL Hgb 9.8 L (14.0-18.0) g/dl Hct 30.7 L (42.0-52.0) % MCV 112.0 H (80.0-100.0) fL MCH 35.8 H (25.0-34.0) pg MCHC 31.9 L (32.0-36.0) g/dL RDW Std Deviation 75.4 H (36.4-46.3) fL RDW Coeff of [place] 18.2 H (11.5-14.5) % Plt Count 108 L (130-400) K/uL Neut # (Auto) 10.34 H (1.40-6.50) K/uL Lymph # (Auto) 0.25 L (1.20-3.40) K/uL Gem # (Auto) 2.30 H (0.11-0.59) K/uL Sodium 135 L (136-145) mmol/L BUN 29 H (6-23) mg/dl Creatinine 1.53 H (0.6-1.4) mg/dl Glucose 103 H (70-99(Fasting)) mg/dl POC Glucose 110 H (70-99) mg/dl Ammonia 14.0 L (18-72) umol/L Troponin I High Sens 38.7 H (0-20) pg/ml Urine Protein (Negative) Urine Blood (Negative) 10/31/24 Range/Units 12:50 WBC (4.8-10.8) K/ul RBC (4.70-6.10) M/uL Hgb (14.0-18.0) g/dl Hct (42.0-52.0) % MCV (80.0-100.0) fL MCH (25.0-34.0) pg MCHC (32.0-36.0) g/dL RDW Std Deviation (36.4-46.3) fL RDW Coeff of [place] (11.5-14.5) % Plt Count (130-400) K/uL Neut # (Auto) (1.40-6.50) K/uL Lymph # (Auto) (1.20-3.40) K/uL Gem # (Auto) (0.11-0.59) K/uL Sodium (136-145) mmol/L BUN (6-23) mg/dl Creatinine (0.6-1.4) mg/dl Glucose (70-99(Fasting)) mg/dl POC Glucose (70-99) mg/dl Ammonia (18-72) umol/L Troponin I High Sens (0-20) pg/ml Urine Protein Trace H (Negative) Urine Blood Trace H (Negative) Diagnostic Findings Chest X-Ray 10/31/24 11:55 XR chest 1V portable CLINICAL HISTORY: Sepsis. COMPARISON STUDY: Chest CT October 02, 2023. Chest radiograph September 30, 2024. FINDINGS: Emphysema is noted. There is no pneumothorax or pleural effusion. Skin folds project over the left chest. Cardiomediastinal silhouette is stable. Lower lung opacities are present. IMPRESSION: 1. Lower lung opacities which may represent pneumonia. Radiographic follow-up to ensure resolution is recommended. 2. Emphysema. ACT 112: Negative or not required by law. Electronically signed by: Shad Framer M.D. 10/31/2024 12:[address] 10/31/24 11:55 CT SCAN OF THE BRAIN WITHOUT IV CONTRAST CLINICAL HISTORY: Change in mental status. COMPARISON STUDY: CT of the brain dated 09/30/2024. TECHNIQUE: Unenhanced axial CT scan of the brain is performed from the vertex to the skull base. Images are reviewed in the axial, sagittal, coronal planes. A dose lowering technique was utilized adhering to the principles of ALARA. The patient was scanned twice due to motion artifact. CT DOSE: 1250.21 mGy.cm FINDINGS: Brain parenchyma: There is age-related involutional change noting obfn-cj-cdyyzbla subcortical and periventricular microangiopathic disease. There is no hemorrhage, mass effect, or evidence of acute territorial ischemia by CT criteria. Hurtado-white matter differentiation is preserved. No extra-axial fluid collection is seen. Ventricles, sulci, cisterns: Prominent secondary to involutional change. Intracranial vasculature: There is atherosclerotic calcification of the cavernous carotid and vertebral arteries. Calvarium: Unremarkable. Sinuses and mastoids: The paranasal sinuses are clear. The mastoid air cells are well pneumatized. Orbits: The bony orbits are grossly intact. There are bilateral ocular lens implants. IMPRESSION: There is no hemorrhage, mass effect, or evidence of acute territorial ischemia by CT criteria. ACT 112: Negative or not required by law. Electronically signed by: Preston Mccloud M.D. 10/31/2024 1:23 PM Code Status & VTE Plan Code Status DNR/DNI Supervising Physician Co-Signing Physician Notes Attending Attestation and Admit Note: Pt seen/examined, chart reviewed, admit care plan d/w ALMA Tillman. I agree w/ the agn components of his admission documentation. 84yo male with previous h/o bladder cancer, BPH, HTN, MDS, and GERD. Presented from home via EMS due to confusion, fatigue, and low-grade fever (99. 5). During my admission assessment he was asking to get up and seemed uncomfortable, shifting around on the gurney. At one point he said he had to void, and at another point stated he had to have a bowel movement. Multiple times he said "oh, oh." PMH/PSH/allergies/meds/sochx - reviewed VSS, afebrile, o2 sats high 90s in room air gen - seems uncomfortable, altered, oriented to person only mouth - MM dry neck - no JVD heart - RRR, s1 s2, no murmur lungs - CTA b/l, no obvious rales abd - soft, distended, ?mildly tender lower abdomen, BS+, no mass, no HSM ext - no edema, pulses 2+ b/l labs reviewed imaging reviewed EKG - NSR, artifact, no ST changes KUB - large stool load in rectum (my reading) A/P: 1. acute metabolic encephalopathy 2. ?early pneumonia? 3. constipation/possible impaction 4. MDS -abx for #2 -likely to need enemas for #3 -supportive care for #1 and treat all potential triggers -#4 - cell lines all acceptable -consider repeat CXR in am to rule in/rule out pneumonia follow cultures Freddy Christy MD PG Care Time/CCT Total # of Minutes Spent Total Time Spent with Patient: Total time spent is greater than 50% in coordination of care (as documented) at patient's floor/unit and/or counseling patient: Coding [place] [address] INT INP/OBS CARE 3/75MIN Patient Type Established Medical Decision Making High Complexity Diagnoses Pneumonia J18.9 Laterality: bilateral Lung location: lower lobe of lung Pneumonia type: due to unspecified organism Acute confusion R41.0 Altered mental status R41.82 Anemia D64.9 Anemia type: unspecified type MDS (myelodysplastic syndrome) D46.9 Pressure ulcer L89.90 Elevated troponin R79.89 Acute metabolic encephalopathy G93.41 (1) Pneumonia Laterality: bilateral Lung location: lower lobe of lung Pneumonia type: due to unspecified organism Qualified Code(s): J18.9 - Pneumonia, unspecified organism (4) Anemia Anemia type: unspecified type Qualified Code(s): D64.9 - Anemia, unspecified
[2024-10-31] MEDS ORDERED: HYDROCORTISONE 1% CRM 30 GM TUBE EXT PRN (17:23)
[2024-10-31] MEDS: AZITHROMYCIN 500 MG/255 ML BAG IV ONE (17:27)
--- NOTE | 2024-10-31 19:20 | XRay Report ---
INDICATION: Abdominal pain TECHNIQUE: Portable supine view radiograph of the abdomen was obtained. COMPARISON: None FINDINGS: The bowel gas pattern is nonobstructive. Moderate quantity of desiccated stool over the colon and over the rectal vault with mild colonic gaseous distention. Evaluation for free air is limited due to supine technique Left hip arthroplasty. Severe osteoarthritis of the right hip. Chronic appearing compression deformity of the lower thoracic spine vertebral body. IMPRESSION: Findings suggesting constipation. Electronically signed by Rambo Granda 10-31-2024 7:19 PM
[2024-10-31] MEDS: OPTIRAY 320 100ml IV ONE (19:49)
--- NOTE | 2024-10-31 20:36 | CT Scan Report ---
Exam(s): CT ABDOMEN + PELVIS With Contrast IV Amt: 90 ml optiray 320 EXAM: CT Abdomen and Pelvis With Intravenous Contrast CLINICAL HISTORY: Reason for exam: Diverticulitis, colitis r/o. TECHNIQUE: Axial computed tomography images of the abdomen and pelvis with intravenous contrast. CTDI is 19 mGy and DLP is 971 mGy-cm. Automated exposure control was utilized for the study. A dose lowering technique was utilized adhering to the principles of ALARA. CONTRAST: Patient received 90 ml optiray 320 of IV contrast COMPARISON: CT abdomen/pelvis on 05/10/2023 FINDINGS: Lung bases: Dependent atelectasis bilaterally. Pleural space: Small uszvp-cbroyfd-gnzu-left pleural effusions. ABDOMEN: Liver: Small hepatic cysts. Gallbladder and bile ducts: Unremarkable. No calcified stones. No ductal dilation. Pancreas: Unremarkable. No mass. No ductal dilation. Spleen: Unremarkable. No splenomegaly. Adrenals: Nonspecific mild thickening of the adrenal glands. Kidneys and ureters: Bilateral renal cysts. Some of the small hypodense lesions in the kidneys are too small to definitively characterize. No hydronephrosis. Stomach and bowel: Fluid and gas filled small bowel loops may represent enteritis in the appropriate clinical setting. Large amount of stool in the colon may represent fecal impaction. Evaluation of the stomach is limited by underdistention. Diverticulosis without evidence of diverticulitis. PELVIS: Appendix: Normal appendix. Bladder: Unremarkable. No mass. Reproductive: Unremarkable as visualized. ABDOMEN and PELVIS: Intraperitoneal space: Unremarkable. No free air. No significant fluid collection. Bones/joints: Left hip arthroplasty causes streak artifact that limits evaluation of portions of the pelvis. Degenerative changes of the spine and right hip. Grade 1 anterolisthesis of L4 on L5. No acute fracture. No dislocation. Soft tissues: Small bilateral inguinal hernias containing small bowel on the right and fat stranding of the left. Vasculature: Atherosclerotic changes of the vasculature. Mild ectasia of the abdominal aorta. No abdominal aortic dissection. Lymph nodes: Unremarkable. No enlarged lymph nodes. IMPRESSION: 1. Fluid and gas filled small bowel loops may represent enteritis in the appropriate clinical setting. 2. Large amount of stool in the colon may represent fecal impaction. 3. Small rvgqu-xrzjbgf-lpyf-left pleural effusions. Electronically signed by: Codey Mendoza M.D. 10/31/24 20:35 PM
--- NOTE | 2024-10-31 21:23 | Electrocardiogram Report ---
Test Reason : Blood Pressure : */* mmHG Vent. Rate : 95 BPM Atrial Rate : 95 BPM P-R Int : 192 ms QRS Dur : 90 ms QT Int : 356 ms P-R-T Axes : 100 -5 63 degrees QTcB Int : 447 ms Poor data quality, interpretation may be adversely affected Normal sinus rhythm Nonspecific ST and T wave abnormality Abnormal ECG When compared with ECG of 05-Sep-2024 09:49, Premature supraventricular complexes are no longer Present Confirmed by Darian Sewell ([id number]) on 10/31/2024 9:23:31 PM Referred By: REFERRED SELF Confirmed By: Darian Sewell
[2024-10-31] MEDS: cefTRIAXone SODIUM 2,000 MG/50 ML BAG IV SCH (21:27)
[2024-10-31] MEDS: ENOXAPARIN INJ 40 MG/0.4 ML SYR SQ SCH (21:27)
[2024-10-31] MEDS: SODIUM CHLORIDE 0.9% 500 ML IV SCH (21:55)
[2024-10-31 22:37] LABS: Influenza A virus by PCR Negative (Neg); Influenza B virus by PCR Negative (Neg); SARS CoV2 RNA(COVID-19) Ceph NEGATIVE (Negative)
[2024-11-01 02:43] LABS: Anion Gap 6.0 (3-11); Blood Urea Nitrogen 23.0 mg/dl (6-23); Calcium 8.4 mg/dl (8.6-10.3); Carbon Dioxide 23.0 mmol/L (21-32); Chloride 106.0 mmol/L (98-107); Creatinine Clr Calc Pharmacy 36.8 ml/min; Glucose 96.0 mg/dl (70-99(Fasting)); Potassium 3.7 mmol/L (3.5-5.1); Sodium 135.0 mmol/L (136-145)
[2024-11-01 02:50] LABS: Acanthocytes 1+; Hematocrit (blood only) 27.7 % (42.0-52.0); Hemoglobin 8.7 g/dl (14.0-18.0); Immature Granulocytes # (auto) 0.10 K/uL (0.01-0.20); Immature Granulocytes % (auto) 0.9 %; Mean Corpuscular Hemoglobin 35.4 pg (25.0-34.0); Mean Corpuscular Volume 112.6 fL (80.0-100.0); Platelet Count 99 K/uL (130-400); Polychromasia 2+; RDW Standard Deviation 76.9 fL (36.4-46.3); Red Blood Count 2.46 M/uL (4.70-6.10); White Blood Count 11.59 K/ul (4.8-10.8)
[2024-11-01] MEDS: AZITHROMYCIN 250 MG in DEXTROSE 5% 250 ML IV SCH (09:48)
--- NOTE | 2024-11-01 12:16 | Hospitalist Progress Note ---
Date of Service November 01, 2024 Assessment & Plan (1) Pneumonia: (2) Acute confusion: (3) Altered mental status: (4) Anemia: (5) MDS (myelodysplastic syndrome): (6) Pressure ulcer: (7) Elevated troponin: Plan This patient is an 84-year-old male who presented on 10/31 for altered mental status. This is suspected to be due to an acute infection (likely pneumonia). UA negative. #Pneumonia Patient endorses productive cough WBC count trend 13->11 Bilateral lower lung opacities noted on CXR which might represent pneumonia Blood cultures drawn Cefepime 2000 IV x 1 in the ED Ceftriaxone 2000 g IV q24h Azithromycin 500 mg IV q24h; QTc okay at 447 IS, flutter valve Guaifenesin 600 mg BID Sputum culture ordered, pending #Enteritis | fecal impaction KUB revealed significant constipation A/P CT revealed fluid and gas-filled bowel that may be consistent with enteritis MiraLAX 17 g daily Docusate sodium 100 mg twice daily #Altered mental status Head CT without acute findings No slurred speech, facial droop, or unilateral deficits to suggest stroke Suspect altered status due to pneumonia/acute infection + fecal impaction/enteritis #Stage II sacral ulcer Noted on arrival Not infected appearing on clinical exam; no purulent drainage appreciated Granddaughter denies prior history of MRSA infections Wound care nurse consult appreciated Daily wound care #Elevated troponin Troponin 38->45->83->96->83 Clinically, patient denies chest pain, but is a poor historian at this time EKG revealed NSR at 95 bpm without ischemic changes appreciated from prior Continuous telemetry monitoring #Anemia | myelodysplastic syndrome [facility] Procrit [facility] every 2 weeks Hgb trend 9.8->8.7 Granddaughter does report that last injection was on Saturday 10/28 She also had an injection 3 days prior to his last hospitalization; ? Unclear if contributory #Mild ALYSON (on arrival; resolved) Monitor Disposition: Continued stay MedSurg telemetry VTE PPx: Lovenox 40 mg SQ q24h Admission and Anticipated Discharge Date Admission Date: October 31, 2024 Subjective Mr. Nole is more talkative this morning. He reports he slept half on and half on throughout the night. He was able to eat breakfast on his own. He is alert and oriented to date of , name, and location, but is unable to explain why he is in the hospital. He says "everybody tells me I'm sick". However, he does not feel sick other than a productive cough (green/brown sputum production). He is still poor historian's time, and answers most of his questions with incohe rent thought processes. ROS: Patient endorses productive cough. Patient denies fever, chills, night sweats, chest pain, pleuritic CP, SOB, hemoptysis, abdominal pain, or bright red blood in his stool. Review of Systems Review of Systems: See HPI above Physical Exam Physical Exam: General: no acute distress; sitting upright in his bed eating breakfast; pleasant affect; talking about how he used to go "fishing"; family at bedside non-toxic appearing; frail-appearing; cooperative; SpO2 97% on RA HEENT: normocephalic, atraumatic; no scleral icterus; PERRLA; vision and hearing appear intact Neck: supple; trachea midline Skin: warm, dry without signs of tenting; no cyanosis; no rashes, bruising, lesions, or erythema noted CV: chest wall NTP; RRR; S1/S2 normal; no murmurs/rubs/gallops; pulses intact and symmetric at radial, DP, and PT Lungs: no acute respiratory distress; symmetrical chest wall expansion; clear breath sounds across all lung singletary w/o adventitious sounds; no wheezing ABD: Soft, NTP; BS present; no rebound/guarding; no distention MSK: no tics or fasciculations; no edema noted in the LEs b/l, nonerythematous Neuro: A&Ox3 (unlike on arrival, he is oriented to name, date of , and location; not oriented to reason for hospitalization); normal mood and affect; fluent speech; patient does exhibit incoherent thought processes at times; sensation intact and symmetric in the upper and lower extremities bilaterally assessed via light touch Results & Data Results & Data Vital Signs (Past 12 Hours) Vital Signs Temp Pulse Pulse Resp BP BP BP 11/01/24 11:15 36.5 C 73 18 100/45 L 11/01/24 08:15 11/01/24 08:13 36.8 C 79 18 145/59 H 11/01/24 07:16 67 11/01/24 03:45 63 11/01/24 02:45 11/01/24 02:24 36.9 C 69 16 138/72 11/01/24 02:07 76 18 128/74 Pulse Ox O2 Del Method 11/01/24 11:15 97 Room Air 11/01/24 08:15 Room Air 11/01/24 08:13 94 Room Air 11/01/24 07:16 11/01/24 03:45 11/01/24 02:45 Room Air 11/01/24 02:24 94 Room Air 11/01/24 02:07 98 Room Air PG Care Time/CCT Total # of Minutes Spent Total Time Spent with Patient: Total time spent is greater than 50% in coordination of care (as documented) at patient's floor/unit and/or counseling patient: Coding [place] [address] SUB INP/OBS CARE 3/50MIN Patient Type Established History Comprehensive Exam Comprehensive Medical Decision Making High Complexity Diagnoses Pneumonia J18.9 Laterality: bilateral Lung location: lower lobe of lung Pneumonia type: due to unspecified organism Acute confusion R41.0 Altered mental status R41.82 Anemia D64.9 Anemia type: unspecified type MDS (myelodysplastic syndrome) D46.9 Pressure ulcer L89.90 Elevated troponin R79.89 (1) Pneumonia Laterality: bilateral Lung location: lower lobe of lung Pneumonia type: due to unspecified organism Qualified Code(s): J18.9 - Pneumonia, unspecified organism (4) Anemia Anemia type: unspecified type Qualified Code(s): D64.9 - Anemia, unspecified
[2024-11-01] MEDS: POLYETHYLENE (MIRALAX) 17 GM PACK PO STA (13:22)
[2024-11-01] MEDS: DOCUSATE SODIUM 100 MG CAP PO ONE (13:22)
[2024-11-01] MEDS: DOCUSATE SODIUM 100 MG CAP PO SCH (20:40)
[2024-11-01] MEDS: guaiFENesin 600 MG TABCR PO SCH (20:40)
[2024-11-01] MEDS: MELATONIN 3 MG TAB PO PRN (23:25)
[2024-11-02 07:39] LABS: Anion Gap 6.0 (3-11); Blood Urea Nitrogen 32.0 mg/dl (6-23); Calcium 8.9 mg/dl (8.6-10.3); Carbon Dioxide 22.0 mmol/L (21-32); Chloride 109.0 mmol/L (98-107); Creatinine Clr Calc Pharmacy 28.9 ml/min; Glucose 112.0 mg/dl (70-99(Fasting)); Potassium 3.9 mmol/L (3.5-5.1); Sodium 137.0 mmol/L (136-145)
[2024-11-02 07:47] LABS: Hematocrit (blood only) 29.5 % (42.0-52.0); Hemoglobin 9.1 g/dl (14.0-18.0); Mean Corpuscular Hemoglobin 35.3 pg (25.0-34.0); Mean Corpuscular Volume 114.3 fL (80.0-100.0); Platelet Count 123 K/uL (130-400); RDW Standard Deviation 79.0 fL (36.4-46.3); Red Blood Count 2.58 M/uL (4.70-6.10); White Blood Count 8.22 K/ul (4.8-10.8)
[2024-11-02 07:52] LABS: Immature Granulocytes # (auto) 0.11 K/uL (0.01-0.20); Immature Granulocytes % (auto) 1.3 %; Macrocytosis Present
[2024-11-02] MEDS: POLYETHYLENE (MIRALAX) 17 GM PACK PO SCH (09:15)
--- NOTE | 2024-11-02 09:39 | Hospitalist Progress Note ---
Date of Service November 02, 2024 Assessment & Plan (1) Pneumonia: (2) Acute confusion: (3) Altered mental status: (4) Anemia: (5) MDS (myelodysplastic syndrome): (6) Pressure ulcer: (7) Elevated troponin: Plan This patient is an 84-year-old male who presented on 10/31 for altered mental status. This is suspected to be due to an acute infection (likely pneumonia). UA negative. #Pneumonia Patient endorses productive cough WBC count trend 13->11-> 8 Bilateral lower lung opacities noted on CXR which might represent pneumonia Blood cultures drawn Cefepime 2000 IV x 1 in the ED Ceftriaxone 2000 g IV q24h Azithromycin 500 mg IV q24h; QTc okay at 447 IS, flutter valve Guaifenesin 600 mg BID Sputum culturepending #Enteritis | fecal impaction KUB revealed significant constipation A/P CT revealed fluid and gas-filled bowel that may be consistent with enteritis MiraLAX 17 g daily Docusate sodium 100 mg twice daily No BMs on 11/01 #ALYSON Mild; creatinine elevated at 1.70 on 11/02 Baseline ~1.30 Avoid nephrotoxic agents where possible Trend BMP #Altered mental status (improving) Head CT without acute findings No slurred speech, facial droop, or unilateral deficits to suggest stroke Suspect altered status due to pneumonia/acute infection + fecal impaction/enteritis #Stage II sacral ulcer Noted on arrival Not infected appearing on clinical exam; no purulent drainage appreciated Granddaughter denies prior history of MRSA infections Wound care nurse consult appreciated Daily wound care #Elevated troponin Troponin 38->45->83->96->83 Clinically, patient denies chest pain, but is a poor historian at this time EKG revealed NSR at 95 bpm without ischemic changes appreciated from prior Continuous telemetry monitoring #Anemia | myelodysplastic syndrome [facility] Procrit [facility] every 2 weeks Hgb trend 9.8->8.7->9/ (stable) Granddaughter does report that last injection was on Saturday 10/28 She also had an injection 3 days prior to his last hospitalization; ? Unclear if contributory Disposition: Continued stay MedSurg telemetry VTE PPx: Lovenox 40 mg SQ q24h Admission and Anticipated Discharge Date Admission Date: October 31, 2024 Subjective Mr. Viera reports he is doing well this morning. He is sitting upright in bed with his granddaughter at bedside. He reports he ate his breakfast and enjoyed it. He is also been up to use the restroom with help. No bowel movements since starting the MiraLAX and Colace. He did have one accident where he wet the bed earlier this morning. Granddaughter at bedside reports that he has had several bouts of incontinence ever since his last bad episode of pneumonia. Granddaughter also noticed that his productive cough has turned "sourav". She denies any prior history of MRSA infections. She does note that he had "blood in his cough" a couple weeks ago. ROS: Patient endorses productive cough and constipation. Patient denies fever, chills, night sweats, chest pain, pleuritic CP, abdominal pain, N/V/D, burning with urination, blood in the urine or stool, or changes in urinary bowel habits. Review of Systems Review of Systems: See HPI above Physical Exam Physical Exam: General: no acute distress; sitting upright in his bed; pleasant affect; granddaughter at bedside; non-toxic appearing; frail-appearing; cooperative; SpO2 97% on RA HEENT: normocephalic, atraumatic; no scleral icterus; PERRLA; vision and hearing appear intact Neck: supple; trachea midline Skin: warm, dry without signs of tenting; no cyanosis; no rashes, bruising, lesions, or erythema noted CV: chest wall NTP; RRR; S1/S2 normal; no murmurs/rubs/gallops; pulses intact and symmetric at radial, DP, and PT Lungs: no acute respiratory distress; productive cough; symmetrical chest wall expansion; rhonchi appreciated in the lower lung singletary bilaterally (L>R) ABD: Soft, RLQ and LLQ are mildly TTP; no rashes or bruises appreciated to the abdomen or flanks bilaterally BS present; no rebound/guarding; no distention MSK: no tics or fasciculations; no edema noted in the LEs b/l, nonerythematous Neuro: A&Ox3 (unlike on arrival, he is oriented to name, date of , and location; not oriented to reason for being in the hospitalization); he still exhibits incoherent thought processes at times; fluent speech; no facial droop appreciated; sensation intact and symmetric in the upper and lower extremities bilaterally assessed via light touch Results & Data Results & Data Vital Signs (Past 12 Hours) Vital Signs Temp Pulse Resp BP BP Pulse Ox O2 Del Method 11/02/24 08:28 36.5 C 65 17 122/71 65 L Room Air 11/02/24 03:55 36.6 C 64 16 94/57 L 97 Room Air 11/01/24 23:23 36.6 C 69 18 138/61 97 Room Air PG Care Time/CCT Total # of Minutes Spent Total Time Spent with Patient: Total time spent is greater than 50% in coordination of care (as documented) at patient's floor/unit and/or counseling patient: Coding [place] [id number] SUB INP/OBS CARE 2/35MIN Patient Type Established History Comprehensive Exam Comprehensive Medical Decision Making Moderate Complexity Diagnoses Pneumonia J18.9 Laterality: bilateral Lung location: lower lobe of lung Pneumonia type: due to unspecified organism Acute confusion R41.0 Altered mental status R41.82 Anemia D64.9 Anemia type: unspecified type MDS (myelodysplastic syndrome) D46.9 Pressure ulcer L89.90 Elevated troponin R79.89 (1) Pneumonia Laterality: bilateral Lung location: lower lobe of lung Pneumonia type: due to unspecified organism Qualified Code(s): J18.9 - Pneumonia, unspecified organism (4) Anemia Anemia type: unspecified type Qualified Code(s): D64.9 - Anemia, unspecified
[2024-11-02] MEDS: ACETAMINOPHEN 325 MG TAB PO PRN (20:17)
[2024-11-03 06:31] LABS: Hematocrit (blood only) 28.3 % (42.0-52.0); Hemoglobin 8.9 g/dl (14.0-18.0); Mean Corpuscular Hemoglobin 36.3 pg (25.0-34.0); Mean Corpuscular Volume 115.5 fL (80.0-100.0); Platelet Count 130 K/uL (130-400); RDW Standard Deviation 78.3 fL (36.4-46.3); Red Blood Count 2.45 M/uL (4.70-6.10); White Blood Count 4.82 K/ul (4.8-10.8)
[2024-11-03 06:48] LABS: Acanthocytes 1+; Immature Granulocytes # (auto) 0.08 K/uL (0.01-0.20); Immature Granulocytes % (auto) 1.7 %; Macrocytosis Present; Polychromasia 2+
[2024-11-03 06:49] LABS: Anion Gap 5.0 (3-11); Blood Urea Nitrogen 32.0 mg/dl (6-23); Calcium 8.8 mg/dl (8.6-10.3); Carbon Dioxide 25.0 mmol/L (21-32); Chloride 108.0 mmol/L (98-107); Creatinine Clr Calc Pharmacy 32.2 ml/min; Glucose 101.0 mg/dl (70-99(Fasting)); Potassium 4.4 mmol/L (3.5-5.1); Sodium 138.0 mmol/L (136-145)
[2024-11-03] MEDS: SENNA 8.6 MG TAB PO SCH (09:30)
[2024-11-03] MEDS: POLYETHYLENE (MIRALAX) 17 GM PACK PO PRN (09:30)
--- NOTE | 2024-11-03 15:47 | Hospitalist Progress Note ---
Date of Service November 03, 2024 Assessment & Plan (1) Pneumonia: (2) Acute confusion: (3) Altered mental status: (4) Anemia: (5) MDS (myelodysplastic syndrome): (6) Pressure ulcer: Plan This patient is an 84-year-old male who presented on 10/31 for altered mental sta tus. This is suspected to be due to an acute infection (likely pneumonia). UA negative. #Pneumonia Patient endorses productive cough WBC count trend 13->11-> 8 -> 4 Bilateral lower lung opacities noted on CXR which might represent pneumonia Blood cultures drawn on ith NGTD on 11/03 Ceftriaxone 2000 g IV q24h Azithromycin 500 mg IV q24h; QTc okay at 447 IS, flutter valve Guaifenesin 600 mg BID Sputum culturepending #Enteritis | fecal impaction KUB revealed significant constipation A/P CT revealed fluid and gas-filled bowel that may be consistent with enteritis MiraLAX 17 g daily Docusate sodium 100 mg twice daily No BMs on 11/01 #ALYSON Mild; creatinine elevated at 1.51 on 11/03 Baseline ~1.30 Avoid nephrotoxic agents where possible Trend BMP #Altered mental status (improving) Head CT without acute findings No slurred speech, facial droop, or unilateral deficits to suggest stroke Suspect altered status due to pneumonia/acute infection + fecal impaction/enteritis #Stage II sacral ulcer Noted on arrival Not infected appearing on clinical exam; no purulent drainage appreciated Granddaughter denies prior history of MRSA infections Wound care nurse consult appreciated Daily wound care #Elevated troponin Troponin 38->45->83->96->83 Clinically, patient denies chest pain, but is a poor historian at this time EKG revealed NSR at 95 bpm without ischemic changes appreciated from prior Continuous telemetry monitoring #Anemia | myelodysplastic syndrome [facility] Procrit [facility] every 2 weeks Hgb trend 9.8->8.7->9.1->8.9 (stable) Granddaughter does report that last injection was on Saturday 10/28 She also had an injection 3 days prior to his last hospitalization; ? Unclear if contributory Disposition: Mentation is still not back at baseline on 11/03; however, patient did have 1 small hard bowel movement 1 around 1500 Hopeful discharge in the next 1 to 2 days if mentation continues to improve, and continued success with current bowel VTE PPx: Lovenox 40 mg SQ q24h Admission and Anticipated Discharge Date Admission Date: October 31, 2024 Subjective Mr. Donohue is doing well this morning. His granddaughter at bedside reports he is "85%" back to baseline in regard to his altered mental status. He is alert and oriented to name, , and location, but is still confused on month of the year. Overall, he reports no respiratory symptoms other than productive cough. He is still coughing up sputum (brown in color). Additionally, he has not yet had a bowel movement in the hospital. He denies any abdominal pain or nausea at this time, and eating food does not exacerbate any symptoms. ROS: Patient endorses productive cough, and constipation. Patient denies fever, chills, night sweats, pleuritic CP, chest pain, SOB, abdominal pain, abdominal pain with eating, N/V, burning with urination, or numbness or tingling in arms or legs. Review of Systems Review of Systems: See HPI above Physical Exam Physical Exam: General: no acute distress; non-toxic appearing; well-nourished; cooperative HEENT: normocephalic, atraumatic; no scleral icterus; PERRLA w/ EOMs intact; vision and hearing grossly intact Neck: supple; no lymphadenopathy; trachea midline Skin: warm, dry without signs of tenting; no cyanosis; no rashes, bruising, lesions, or erythema noted CV: chest wall NTP; RRR; S1/S2 normal; no murmurs/rubs/gallops; pulses intact and symmetric at radial, DP, and PT Lungs: no acute respiratory distress; symmetrical chest wall expansion; clear breath sounds across all lung singletary w/o adventitious sounds; no wheezing ABD: Soft, NTP; BS present; no rebound/guarding; no distention MSK: no tics or fasciculations; no edema noted in the LEs b/l, nonerythematous Neuro: A&Ox3; normal mood and affect; fluent speech; no focal deficits; sensation grossly intact in the LEs b/l Results & Data Results & Data Vital Signs (Past 12 Hours) Vital Signs Temp Pulse Resp BP Pulse Ox O2 Del Method 11/03/24 15:30 36.4 C L 68 18 156/64 H 98 Room Air 11/03/24 11:23 36.3 C L 61 18 145/70 H 98 Room Air 11/03/24 08:50 Room Air 11/03/24 07:48 36.6 C 59 L 17 147/67 H 97 Room Air PG Care Time/CCT Total # of Minutes Spent Total Time Spent with Patient: Total time spent is greater than 50% in coordination of care (as documented) at patient's floor/unit and/or counseling patient: Coding [place] [address] SUB INP/OBS CARE 2/35MIN Patient Type Established History Comprehensive Exam Comprehensive Medical Decision Making Moderate Complexity Diagnoses Pneumonia J18.9 Laterality: bilateral Lung location: lower lobe of lung Pneumonia type: due to unspecified organism Acute confusion R41.0 Altered mental status R41.82 Anemia D64.9 Anemia type: unspecified type MDS (myelodysplastic syndrome) D46.9 Pressure ulcer L89.90 (1) Pneumonia Laterality: bilateral Lung location: lower lobe of lung Pneumonia type: due to unspecified organism Qualified Code(s): J18.9 - Pneumonia, unspecified organism (4) Anemia Anemia type: unspecified type Qualified Code(s): D64.9 - Anemia, unspecified
--- NOTE | 2024-11-04 | Communication Note ---
Date of Service: November 03, 2024 S/O: Patient removing medical equipment, ripping off his cardiac telemetry electrodes, despite multiple efforts to re-attach it. A/P: The reason for putting the patient on Med-Tele initially was primarily his troponin levels, which have normalized. For this reason, I believe the patient can remain without the cardiac telemetry for the rest of his stay. I can transfer the patient to Med-Surg.
--- NOTE | 2024-11-04 11:40 | Hospitalist Progress Note ---
Date of Service November 04, 2024 Assessment & Plan (1) Pneumonia: Plan: Suspected on admission. Will repeat chest x-ray again tomorrowNovember 05. Continue intravenous Rocephin and azithromycin, day 4. Sputum culture ordered and pending (2) Acute confusion: Plan: Acute metabolic encephalopathy present on admission. Now resolved (3) MDS (myelodysplastic syndrome): Plan: Causing chronic anemia. Serial labs. (4) Pressure ulcer: Plan: On sacrum. Local care (5) Acute kidney injury: Plan: Present on admission. Resolved with IV fluids (6) Elevated troponin: Plan: Mild on admission. No chest pain. No evidence of acute EKG changes. No acute coronary syndrome. Plan Hopeful discharge to home with home health services tomorrNovember 05 Admission and Anticipated Discharge Date Admission Date: October 31, 2024 Subjective Alert and oriented. No distress. He is afebrile and on room air. He does have purulent appearing sputum and sputum culture will be requested. He is on Rocephin and azithromycin, day 4. Hopefully he can go home tomorrowNovember 05, with home health services. Will repeat chest x-ray again tomorrNovember 05 Review of Systems 2 Review of Systems: Constitutionalno fever or chills ENTno blurred vision, no double vision, no epistaxis, no sore throat Respiratoryno cough, no wheezing, no shortness of breath. He occasionally produces purulent appearing sputum Cardiacno palpitations, no chest pain, no syncope Mckayla nausea, vomiting, diarrhea, melena, hematochezia GUno urinary retention, no urinary incontinence, no dysuria, no hematuria Musculoskeletalno joint pain, no muscle tenderness Skinno bruising, no rashes, no pruritus Neurono isolated weakness, no paresthesia, no weakness Psychno depression, no anxiety Physical Exam 2 Physical Exam: General-alert and oriented x3, no fever, no chills HEENT-head atraumatic and normocephalic, pupils equal and reactive to light, extraocular muscles intact Neck-no lymphadenopathy or thyromegaly, trachea midline Chest-scattered faint bilateral rhonchi. No wheezing. No inspiratory rales. Cardiac-regular rate and rhythm, normal S1 and S2 Abdomen-normal bowel sounds, no hepatosplenomegaly Extremities-no cyanosis, clubbing, or edema Neuro-cranial nerves II through XII intact, motor and sensory function within normal limits, strength symmetrical, no focal deficits Psych-normal affect, normal mood Results & Data Results & Data Vital Signs (Past 12 Hours) Vital Signs Temp Pulse Resp BP Pulse Ox O2 Del Method 11/04/24 08:47 36.6 C 65 18 178/65 H 97 Room Air Laboratory Results 11/03/24 05:55 11/03/24 05:55 PG Care Time/CCT Total # of Minutes Spent Total Time Spent with Patient: Total time spent is greater than 50% in coordination of care (as documented) at patient's floor/unit and/or counseling patient: Coding Level of Care Code 70439 SUB INP/OBS CARE 3/50MIN Diagnoses Pneumonia J18.9 Laterality: bilateral Lung location: lower lobe of lung Pneumonia type: due to unspecified organism Acute confusion R41.0 MDS (myelodysplastic syndrome) D46.9 Pressure ulcer L89.90 Acute kidney injury N17.9 Elevated troponin R79.89 (1) Pneumonia Laterality: bilateral Lung location: lower lobe of lung Pneumonia type: due to unspecified organism Qualified Code(s): J18.9 - Pneumonia, unspecified organism
[2024-11-05 07:38] VITALS: RESP 16
[2024-11-05 08:15] LABS: Hematocrit (blood only) 30.1 % (42.0-52.0); Hemoglobin 9.5 g/dl (14.0-18.0); Immature Granulocytes # (auto) 0.19 K/uL (0.01-0.20); Immature Granulocytes % (auto) 4.8 %; Mean Corpuscular Hemoglobin 35.6 pg (25.0-34.0); Mean Corpuscular Volume 112.7 fL (80.0-100.0); Platelet Count 135 K/uL (130-400); RDW Standard Deviation 75.6 fL (36.4-46.3); Red Blood Count 2.67 M/uL (4.70-6.10); White Blood Count 3.99 K/ul (4.8-10.8)
[2024-11-05 08:35] LABS: Anion Gap 6.0 (3-11); Blood Urea Nitrogen 30.0 mg/dl (6-23); Calcium 9.1 mg/dl (8.6-10.3); Carbon Dioxide 27.0 mmol/L (21-32); Chloride 103.0 mmol/L (98-107); Creatinine Clr Calc Pharmacy 31.0 ml/min; Glucose 88.0 mg/dl (70-99(Fasting)); Potassium 4.2 mmol/L (3.5-5.1); Sodium 136.0 mmol/L (136-145)
--- NOTE | 2024-11-05 08:43 | XRay Report ---
EXAM: XR chest 1V portable CLINICAL HISTORY: pneumonia TECHNIQUE: An X-ray image of the chest is obtained in AP projection. COMPARISON: CXR dated 10/31/2024 FINDINGS: Pulmonary Parenchyma: Interval improvement in the right lower zone medial opacity No evidence of new consolidation, collapse, or focal opacities. No pulmonary nodules are identified. No evidence of pleural effusion or pleural thickening. Heart and Mediastinum: Heart size and shape are normal. No mediastinal widening or masses. No hilar or mediastinal lymphadenopathy. Bony Thorax: Unchanged bilateral glenohumeral and acromioclavicular arthopathy. Bony thorax appears intact without fractures or deformities. Soft Tissues: Soft tissues overlying the chest wall are unremarkable. Skin fold seen projecting over the right lower lung zone IMPRESSION: Interval improvement in the right lower zone medial opacity. Electronically signed by Yrn Darnell 11-05-2024 08:42 AM
--- NOTE | 2024-11-05 11:37 | Discharge Summary ---
Discharge Summary Date of Service November 05, 2024 Principal Dx & Hospital Course #1 = Principal Diagnosis (1) Pneumonia: Suspected on admission. Repeat chest x-ray done today, November 05, looks clear. He was treated while hospitalized with intravenous Rocephin and azithromycin, day 5. He will continue oral azithromycin and discharged for another 5 days. (2) Acute confusion: Acute metabolic encephalopathy present on admission. Now resolved (3) MDS (myelodysplastic syndrome): Causing chronic anemia. Serial labs. (4) Pressure ulcer: On sacrum. Local care until resolved (5) Acute kidney injury: Present on admission. Resolved with IV fluids (6) Elevated troponin: Mild on admission. No chest pain. No evidence of acute EKG changes. No acute coronary syndrome. Plan Home today, November 05, with home health services Admission HPI Per Admitting Provider Mr. Viera is an 84-year-old male with PMH of primary bladder cancer, BPH, cervical spine arthritis, HTN, and GERD. He presented on 10/31 via EMS for altered mental status. Patient is a poor historian at this time, and history is obtained from patient's granddaughter (Kimberly) at bedside. Patient is not alert and oriented to name, , location, or purpose in the hospital. However, he denies any pain or respiratory distress at this time. Patient has been living with his granddaughter ever since he got out of the hospital in September for severe sepsis, acute toxic metabolic encephalopathy suspect secondary to entero-/rhinovirus. Granddaughter first noticed confusion yesterday evening. Then when the patient slept then, she noticed he was not oriented this morning. She reports he is usually "sharp". She took his temperature, and it was 99.5 F. She reports no upper respiratory symptoms such as cough, or complaints of difficulty breathing. He did have an episode of diarrhea a couple days ago, but took liquid IV, and reports that he felt better. No recent antibiotic use since leaving the hospital. He does have a sacral ulcer, but the granddaughter has been monitoring it, and denies any drainage from the site. Applying cream to it daily patient does get Procrit injections every 2 weeks at the [facility] for his MDS. Last injection was on Saturday 10/28. Granddaughter notes that the patient felt "unwell" just prior to his last admission several days after getting this injection, and is unsure if the 2 are related. Granddaughter denies any strokelike symptoms such as slurred speech, facial droop, unilateral deficits. Granddaughter reports that she is his medical power of family law attorney, and that he is a DNR/DNI. Patient is a former tobacco cigarette smoker, but granddaughter reports he quit ~50 years ago. Patient is hypotensive at 100/59 and mildly tachycardic around 94 bpm at time of admission; vitals otherwise stable. ED course: Cefepime 2000 mg IV NSS 1000 mg IV x 2 Unable to obtain ROS at this time. Discharge Exam General-alert and oriented x3, no fever, no chills HEENT-head atraumatic and normocephalic, pupils equal and reactive to light, extraocular muscles intact Neck-no lymphadenopathy or thyromegaly, trachea midline Chest-scattered faint bilateral rhonchi. No wheezing. No inspiratory rales. Cardiac-regular rate and rhythm, normal S1 and S2 Abdomen-normal bowel sounds, no hepatosplenomegaly Extremities-no cyanosis, clubbing, or edema Neuro-cranial nerves II through XII intact, motor and sensory function within normal limits, strength symmetrical, no focal deficits Psych-normal affect, normal mood Discharge Plan Discharge Items Patient Disposition: Home - Self-Care Reason For Visit: AMS, PNA Discharge Diagnosis: Suspected bacterial pneumonia, acute metabolic encephalopathy, acute kidney injury, constipation, sacral ulcer stage II, elevated troponin without acute coronary syndrome Condition on Discharge: Good Activity: Resume your previous activity Non-emergency contact: Primary Care Provider Call non-emergency contact if: your symptoms worsen Follow-up/Referrals: Brea Etienne CRNP [Primary Care Provider] - Diet: Regular Addtl Attending Provider Instructions: Take azithromycin daily for 5 more days. A prescription has been sent to [facility] pharmacy in [place] Pending Studies at Discharge: No Stand-Alone Forms: My [facility] uSpeak, Smoking Cessation Medications and DC Order Prescriptions: New azithromycin 500 mg tablet 500 mg PO DAILY 5 Days Qty: 5 0RF Continued BenGay Vanishing Scent 2.5 % gel 1 applic topical QID PRN (Reason: pain) Patient Comments: 10/31- otc unable to verify acetaminophen [Tylenol Arthritis Pain] 650 mg tablet extended release 650 mg PO Q12H PRN (Reason: Pain) Patient Comments: 10/31- otc unable to verify polyethylene glycol 3350 [Miralax] 17 gram/dose powder 17 g PO DAILY PRN (Reason: Constipation) Patient Comments: 10/31- otc unable to verify hydrocortisone [Cortizone-10] 1 % cream 1 applic topical BID PRN (Reason: Itching) Patient Comments: 10/31- otc unable to verify silver sulfadiazine [Silvadene] 1 % cream 1 applic topical UD Patient Comments: filled 10/04 14 day supply Rx Instructions: apply a 1.5 mm thickness Discharge Orders: Discharge Order (Routine); Ordered 11/05/24 Ordered By: Jose Duval Admission Data Admit Date/Time: 10/31/24 14:56 Attending Provider: Jose Duval Admit Provider: Freddy Christy Primary Care Provider: Brea Etienne Other Providers: Freddy Christy Hospital Stay Data Consultations 10/31/24 14:08 ED Decision to Admit Stat Diagnostic Imagining Performed 10/31/24 11:55 CT head/brain wo con Stat 10/31/24 19:46 CT Abd and Pelvis [CT abd pelvis IV con only] Urgent Pending Results Patient Have Any Pending Studies at Discharge: No Discharge Instructions Given to Patient (Per Discharging Provider) Take azithromycin daily for 5 more days. A prescription has been sent to [facility] pharmacy in [place] Total Time Total Time Spent Total Time Spent (In Minutes): 45 minutes Coding Level of Care Code 57846 INP/OBS DISCH >30 MIN Diagnoses Pneumonia J18.9 Laterality: bilateral Lung location: lower lobe of lung Pneumonia type: due to unspecified organism Acute confusion R41.0 MDS (myelodysplastic syndrome) D46.9 Pressure ulcer L89.90 Acute kidney injury N17.9 Elevated troponin R79.89
[2024-11-05 15:23] VITALS: BP 127/69; PULSE 67; TEMP 97.5; O2SAT 94
[2024-11-06 08:57] LABS: Macrocytosis Present
== END 2024-11-05 16:52 | disposition home or self-care (01) | DRG 193 ==
LOC: SUATTDRO → ED 11:42 → EDINP 14:56 → SUATTDRO 14:56 → EDINP 11-01 02:07 → 2N 11-01 02:36 → 3N 11-05 01:36